=== PATIENT | male | born 1955 | race Caucasian/White ===

== ENCOUNTER 2019-10-07 14:07 | Inpatient (IN) | payer OTHER, SELFPAY ==
--- NOTE | ~2019-10-07 | US_ITS ---
EXAMINATION: US paracentesis abd w/image DATE: 10/08/2019 10:44 INDICATION: Ascites. TECHNIQUE: The procedure and its risks and benefits were discussed with the patient. Potential risks discussed included bleeding and infection. The skin was prepped and draped in sterile fashion. 1% lid ocaine was used for local anesthesia. Under ultrasound guidance, a 5 Fr catheter with trochar was adv anced into the ascites in the left lower quadrant. Fluid was aspirated into vacuum bottles. The bhumika ter was removed, and a dressing was applied. There were no immediate complications. FINDINGS: Ultrasound images demonstrate ascites and the catheter within the fluid. IMPRESSION: 1. Successful ultrasound-guided paracentesis yielding 5000 mL of clear tabatha-colored fluid. Reviewed, dictated and finalized at location A. FICIAL FLY TIER IMPRESSION: 1. Successful ultrasound-guided paracentesis yielding 5000 mL of clear tabatha-c olored fluid.
--- NOTE | ~2019-10-07 | US_ITS ---
EXAMINATION: US venous doppler [facility] DATE: 10/08/2019 10:43 INDICATION: Bilateral lower limb swelling TECHNIQUE: Grayscale ultrasound images without and with compression and Doppler ultrasound images of the bilateral lower extremity veins were obtained. COMPARISON: None. FINDINGS: The visualized portions of right common femoral vein, profunda (deep) femoral vein, femoral vein, pop liteal vein, posterior tibial veins, peroneal veins, gastrocnemius vein and greater saphenous vein ou tflow are patent. The visualized portions of left common femoral vein, profunda femoral vein, femoral vein, popliteal v ein, posterior tibial veins, peroneal veins, gastrocnemius vein and greater saphenous vein outflow ar e patent. IMPRESSION: 1. No deep venous thrombosis in either lower limb. Reviewed, dictated and finalized at location A. O CASHIER
--- NOTE | ~2019-10-07 | US_ITS ---
EXAMINATION: US paracentesis abd w/image DATE: 10/11/2019 12:23 INDICATION: Ascites. TECHNIQUE: The procedure and its risks and benefits were discussed with the patient. Potential risks discussed included bleeding and infection. The skin was prepped and draped in sterile fashion. 1% lid ocaine was used for local anesthesia. Under ultrasound guidance, a 5 Fr catheter with trochar was adv anced into the ascites in the left lower quadrant. Fluid was aspirated into vacuum bottles. The bhumika ter was removed, and a dressing was applied. There were no immediate complications. FINDINGS: Ultrasound images demonstrate ascites and the catheter within the fluid. IMPRESSION: 1. Successful ultrasound-guided paracentesis yielding 5000 mL of clear yellow fluid. Reviewed, dictated and finalized at location A. F OF POLICE
--- NOTE | ~2019-10-07 | XR_ITS ---
EXAMINATION: XR chest 2V EXAM DATE: 10/07/2019 16:41 INDICATION: Cough. Low chest pain. TECHNIQUE: Frontal and lateral projections of the chest obtained and reviewed. Comparison is made to prior examination from 02/23/2012. FINDINGS: There is low lung volume with bibasilar opacities, at least partly atelectasis given linea r appearance and volume loss. Can't exclude basilar pneumonia. There is no pneumothorax suspected. Th ere are no pleural effusions. Cardiomediastinal silhouette is normal. Patient has diffuse idiopathic skeletal hyperostosis (DISH). IMPRESSION: Multifocal bibasilar linear opacities most likely atelectasis. Pneumonia not excludable. Reviewed, dictated and finalized at location B. S OPERATOR AUTOMATIC IMPRESSION: Multifocal bibasilar linear opacities most likely atelectasis. Pneu monia not excludable.
--- NOTE | ~2019-10-07 | CT_ITS ---
EXAMINATION: CT abdomen pelvis w con DATE: 10/07/2019 16:32 INDICATION: Abdominal distention. TECHNIQUE: Computed tomography (CT) of the abdomen and pelvis was performed with 100 mL Omnipaque-350 intravenous contrast. Automated exposure control and iterative reconstruction technique were employe d. The dose-length product was 810.47 mGy-cm. COMPARISON: None FINDINGS: Large amount of ascites resulting in elevation of the diaphragm and bibasilar compressive atelectasis . Heart size is normal. No pericardial effusion. Shrunken and nodular cirrhotic liver. Portal venous hypertension with recanalized umbilical vein. Wall thickening at the distal esophagus which may be re lated to progressive gastroesophageal varices. Edematous wall thickening of the nondistended gallblad harjit most likely related to liver disease. A few calcification of the normal sized spleen consistent w ith old granulomatous disease. Pancreas, bilateral adrenal glands and left kidney are normal. 2.3 cm right renal cyst. Bowels including the appendix are normal. Small amount of ascites extends into a ri ght inguinal hernia. Decompressed bladder is normal. No pathologically enlarged abdominal or pelvic l ymphadenopathy. There are bridging osteophytes at multiple levels in the spine, consistent with diffu se idiopathic skeletal hyperostosis (DISH). L1 hemangioma. IMPRESSION: 1. Cirrhosis with portal venous hypertension and large amount of ascites. 2. Wall thickening the distal esophagus most likely related to gastroesophageal varices with differen tial including esophagitis. 3. Right inguinal hernia containing small amount of fat and ascites. Reviewed, dictated and finalized at location A. AGENT IMPRESSION: 1. Cirrhosis with portal venous hypertension and large amount of ascites. 2. Wall thickening the distal esophagus most likely related to gastroesophageal varices with differential including esophagitis. 3. Right inguinal hernia containing small amount of fat and ascites.
[2019-10-07 14:26] VITALS: BP 129/94; PULSE 98; RESP 16; TEMP 37.2; O2SAT 100
[2019-10-07 14:40] LABS: Basophils Percent Auto 0.4 % (0.2-1.2); Eosinophils Absolute Auto 0.1 K/mm3 (0-0.3); Eosinophils Percent Auto 1.4 % (0-4.4); Hematocrit 37.6 % (42.0-52.0); Hemoglobin 12.6 g/dL (14.0-18.0); Immature Granulocyte Absolute 0.02 K/mm3 (0.00-0.031); Immature Granulocyte Percent A 0.3 % (0-0.5); Lymphocytes Absolute Auto 1.43 K/mm3 (0.9-3.2); Lymphocytes Percent Auto 20.5 % (18.3-44.2); Mean Corpuscular HGB Conc 33.5 g/dl (32-36); Mean Corpuscular Hemoglobin 35.4 pg (26-34); Mean Corpuscular Volume 105.6 fl (80-100); Mean Platelet Volume 12.8 fl (7.4-10.4); Monocytes Absolute Auto 1.3 K/mm3 (0.1-0.6); Monocytes Percent Auto 19.2 % (2.6-8.5); Neutrophils Absolute Auto 4.1 K/mm3 (1.3-6.7); Neutrophils Percent Auto 58.2 % (45.5-73.1); Platelet Count Result 105 k/mm3 (150-375); Red Blood Count 3.56 M/mm3 (4.6-6.20); Red Cell Distribution Width 13.1 % (11.5-14.5)
[2019-10-07 14:53] LABS: Alanine Aminotransferase 20 U/L (4-50); Albumin Level 2.7 g/dL (3.5-5.1); Alkaline Phosphatase 125 U/L (38-126); Aspartate Amino Transferase 38 U/L (17-59); Bilirubin,Total 2.2 mg/dL (0.2-1.3); Blood Urea Nitrogen 9 mg/dL (9-20); Calcium 8.4 mg/dL (8.4-10.2); Carbon Dioxide 23 mmol/L (22-30); Chloride 101 mmol/L (98-107); Estimated CRCL calculation 104 ml/min; Estimated Glomerular Filt Rate > 60; Glucose 119 mg/dL (75-110); Lipase 180 U/L (23-300); Potassium 4.4 mmol/L (3.4-5.0); Sodium 135 mmol/L (137-145)
--- NOTE | 2019-10-07 16:08 | ED.GENADULT ---
HPI - General Adult General Chief complaint: Unspecified Stated complaint: 50lb wt gain all at once Time Seen by Provider: 10/07/19 16:04 Source: patient and RN notes reviewed Mode of arrival: ambulatory Limitations: no limitations History of Present Illness HPI narrative: Pt is a 64 y/o male presenting to the ED c/o weight gain. Pt reports he has gained about 40 lbs of weight over the past 2 months. Pt states this is his first occurrence with this issue, and denies Hx's of heart disease or liver disease. Pt also reports SOB, pruritic BLE swelling, ABD distention, productive cough with phlegm, and pain with cough, but denies nausea. Pt states he has no Hx of alcoholism. Onset (ago): month(s) (2) Associated symptoms: cough (Productive with phlegm), shortness of breath and other (Pruritic BLE swelling; ABD distention; pain with cough) Treatments prior to arrival: none Related Data Allergies Allergy/AdvReac Type Severity Reaction Status Date / Time No Known Allergies Allergy Mild Verified 02/28/08 16:55 Review of Systems Review of Systems: All systems reviewed & are unremarkable except as noted in HPI and below Constitutional: Constitutional: Reports weight gain (40 lbs over past 2 months) Respiratory: Respiratory: Reports cough (Productive with phlegm), Reports pain with cough and Reports dyspnea Gastrointestinal: Gastrointestinal: Denies nausea and Reports other (ABD distention) Integumentary/Breasts: Skin/Breast: Reports swelling (Pruritic BLE) PMFSH Past Medical History Medical History Asthma Esophageal hernia Surgical History Surgical History No significant past surgical history Social History Social History Smoking status: Smoker, status unknown Exam Const: General: no acute distress, alert and ill appearing (Chronically) Nutritional Appearance: well nourished HENMT: Mouth: Yes lip normal Eyes: Conjunctivae: conjunctivae normal Resp: Effort & Inspection: normal respiratory effort Auscultation: clear to auscultation bilaterally Cardio: Rate: regular rate Rhythm: regular rhythm GI: Inspection: distended and other (Diffuse edema through abdominal wall) GI Palp: Yes Soft to palpation and No Tenderness to palpation present (GI) Back/Spine/Pelvis: Other: Full ROM Skin: General skin exam: normal color Other: Warm; Dry Neuro: General: patient oriented x3 Speech: normal speech Extrem: General: edema (Diffuse) Psych: Mental Status: mental status grossly normal Affect: normal affect Course Vital Signs Vital signs: Vital Signs Temperature 37.2 C 10/07/19 14:26 Pulse Rate 98 10/07/19 14:26 Respiratory Rate 16 10/07/19 14:26 Blood Pressure 129/94 H 10/07/19 14:26 Pulse Oximetry 100 10/07/19 14:26 Temperature 36.9 C 10/07/19 17:18 Pulse Rate 85 10/07/19 17:18 Respiratory Rate 16 10/07/19 17:18 Blood Pressure 123/58 L 10/07/19 17:18 Pulse Oximetry 97 10/07/19 17:18 Medical Decision Making MDM Narrative Medical decision making narrative: CT consitent with cirrhosis. I will plan to admit for diuresis and GI consult. Differential Diagnosis Differential Diagnosis: Cirrhosis, cancer, CHF, other Medical Records Medical records reviewed: Yes I reviewed the patient's medical records. Vital Signs Vital Signs: Vital Signs Temperature 37.2 C 10/07/19 14:26 Pulse Rate 98 10/07/19 14:26 Respiratory Rate 16 10/07/19 14:26 Blood Pressure 129/94 H 10/07/19 14:26 Pulse Oximetry 100 10/07/19 14:26 Temperature 36.9 C 10/07/19 17:18 Pulse Rate 85 10/07/19 17:18 Respiratory Rate 16 10/07/19 17:18 Blood Pressure 123/58 L 10/07/19 17:18 Pulse Oximetry 97 10/07/19 17:18 Lab Data Lab results reviewed: Yes I reviewed the patient's lab results. Result diagrams: 10/07/19 14:31 10/07/19 14:31
[2019-10-07 16:37] LABS: INR 1.8; Prothrombin Time 20.4 Seconds (11.1-14.7)
[2019-10-07 16:38] LABS: Partial Thromboplastin Time 38.3 SECONDS (22.3-36.8)
[2019-10-07 16:42] LABS: NT Pro B Type Natriuretic Pept 254 PG/ML (5-100)
[2019-10-07 17:18] VITALS: BP 123/58; PULSE 85; RESP 16; TEMP 36.9; O2SAT 97
[2019-10-07] MEDS: FUROSEMIDE INJ 40 MG/4 ML VIAL IV PUSH (17:36)
[2019-10-07 18:27] LABS: Add Urine Microscopic? NO; Appearance Urine Clear (Clear); Bilirubin Urine Negative (Negative); Blood Urine Negative (Negative); Color Urine Yellow (Yellow); Glucose Urine UA Negative (Negative); Ketones Urine Negative (Negative); Leukocyte Esterase Ur Negative LEU/UL (Negative); Nitrate Urine Negative (Negative); Protein Urine Negative (Negative); RBC Urine 0-2 /hpf (0-2); Urobilinogen Urine Negative mg/dL (<2.0); WBC Urine 0-3 /hpf
[2019-10-07 18:28] LABS: Specific Grav Ur 1.065 (1.001-1.035)
[2019-10-07 18:42] VITALS: BP 136/71; PULSE 89; RESP 18; TEMP 36.6; O2SAT 98
[2019-10-07 20:35] VITALS: BP 123/90; PULSE 101; RESP 18; TEMP 36.7; O2SAT 100
[2019-10-07 20:37] VITALS: BMI 28.3
--- NOTE | 2019-10-07 21:08 | ADMGEN ---
This patient, Bo Freedman, was admitted to Medical Room 343-01. Patient/family oriented to hospital policies and general routines including ID bracelet, bed and alarms, visiting hours, pain management, procedures, bathroom and other care routines, personal items, smoking policy, room service/diet, and visiting hours. Valuables list has been completed. Information on how to activate the Rapid Response Team has been discussed. Patient/Family are encouraged to report perceived risks to care and to ask questions if they do not understand what they are told or what they should do.
--- NOTE | 2019-10-08 | ECHO_ITS ---
Patient Info Name: Bo Freedman Age: 64 years : 1955 Gender: Male Ht: 68 in Wt: 186 lbs BSA: 2.03 m2 HR: 86 bpm BP: 123 / 90 mmHg Heart Rhythm: Sinus Rhythm Technical Quality: Good Exam Date: 10/08/2019 7:20 AM Exam Location: [facility] Pulmonary Exam Room: 343 Patient Status: Inpatient Admit Date: 10/07/2019 Staff Ordering Physician: Tori Lilly NP Cell Stripper Final: Maria M Gordon RDCS Attending Provider: Jaydon Jenkins PA-C Exam Type: CA echo doppler color flow Study Info Indications - murmur Complete two-dimensional, color flow and Doppler transthoracic echocardiogram is performed. Summary 1. Left ventricular systolic function is hyperdynamic, estimated at >70%. 2. There is moderate asymmetric septal increased left ventricular wall thickness. 3. The mitral valve has normal leaflets. 4. chordal systolic anterior motion is seen with modest 16mm LVOT gradient. 5. Findings as above are consistent with HCM with mild LVOT gradient. Left Ventricle Left ventricular chamber dimension is normal. Left ventricular systolic function is hyperdynamic, estimated at >70%. There is moderate asymmetric septal increased left ventricular wall thickness. The left ventricular diastolic function is grade I diastolic dysfunction. Right Ventricle Right ventricular chamber dimension is normal. Left Atria Left atrial chamber dimension is mildly enlarged. Right Atria Right atrial chamber dimension is normal. Aortic Valve The aortic valve is trileaflet. Pulmonic Valve The pulmonic valve is not well visualized. Mitral Valve The mitral valve has normal leaflets. There is no mitral valve regurgitation. chordal systolic anterior motion is seen with modest 16mm LVOT gradient. Tricuspid Valve The tricuspid valve leaflets are normal. Pericardium/Pleural The pericardium appears normal. Aorta The aortic root size at the sinus of Valsalva is normal. Left Ventricular Outflow Tract Name Value Normal LVOT 2D LVOT Diameter 2.0 cm LVOT Doppler LVOT Peak Gradient 9 mmHg LVOT Mean Gradient 8 mmHg LVOT VTI 29 cm LVOT VTI/AV VTI Ratio 0.7 LVOT Stroke Volume 88 ml LVOT CO 24.8 l/min LVOT CI 12.2 l/min/m2 Pulmonic Valve Name Value Normal PV Doppler PV Peak Gradient 4 mmHg Mitral Valve Name Value Normal MV Doppler MV Decel Wheeler 366 cm/s2
--- NOTE | 2019-10-08 00:37 | PM.IMHP ---
H&P: HPI History of Present Illness Chief complaint: cirrhosis/anasarca Narrative: Bo Freedman is a 64 year old male stated that he is not a drinker he really drinks. The patient denies being jaundiced. The patient stated he gained about 40 lb over the last 2 months. Patient stated his stomach became distended but did not get any bigger after that. He said it made him more short of breath. He would walk to the mailbox and back and would be very short of breath. The patient does not take any home medications. Patient stated that he started to swell in his chest removed and his abdomen is lower extremities. He has no history of any PEs or DVTs. Patient stated he has never had these symptoms before. IV Lasix in the emergency room. The patient stated that he is feeling somewhat better. Patient is jaundiced. He had a CT scan that was read as Cirrhosis with portal venous hypertension with large amount of ascites. Wall thickening of the distal esophagus most likely related to gastroesophageal varices with different job than esophagitis. Right inguinal hernia containing small amount of fat ascites. Date of service is 10/07/2019. Review of Systems Review of Systems: Narrative: Patient is jaundiced. Short of breath with exertion All systems reviewed & are unremarkable except as noted in HPI and below Constitutional: Constitutional: Reports as per HPI, Reports no additional constitutional complaints, Reports fatigue and Reports poor appetite Eyes: Eyes: Reports as per HPI and Reports no additional eye complaints ENT: Reports system reviewed and no additional complaints, except as documented and Reports Normal hearing present Cardiovascular: Cardiovascular: Reports no additional cardiovascular complaints Respiratory: Respiratory: Reports no additional respiratory complaints and Reports no additional respiratory complaints Gastrointestinal: Gastrointestinal: Reports as per HPI, Reports no additional gastrointestinal complaints, Reports belching, Reports bloating, Reports dyspepsia, Reports heartburn and Reports vomiting Genitourinary: Comments: Decreased urinary output Musculoskeletal: Musculoskeletal: Reports no additional musculoskeletal complaints Integumentary/Breasts: Skin/Breast: Reports system reviewed and no additional complaints, except as docu and Reports as per HPI Neurologic: Reports system reviewed and no additional complaints, except as documented, Reports as per HPI and Reports Normal hearing present Psychiatric: Psychiatric: Reports no additional psychiatric complaints and Reports as per HPI Endocrine: Endocrine: Reports no additional endocrine complaints Hematologic/Lymphatic: Hematologic/Lymphatic: Reports no additional hematologic/lymphatic complaints Allergic/Immunologic: Allergic/Immunologic: Reports no additional allergic/immunologic complaints PMFSH Past Medical History Medical History (Updated 10/08/19 @ 00:49 by Tori Lilly NP) Anasarca Ascites Asthma Cirrhosis Esophageal hernia Esophageal varices Portal venous hypertension Surgical History Surgical History No significant past surgical history Family History Family History (Updated 10/08/19 @ 00:49 by Tori Lilly NP) Unknown Family history unknown Social History Social History (Updated 10/08/19 @ 00:56 by Tori Lilly NP) Social History: Patient is . He has 1 adopted child. 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 His 1 adopted daughter is the power production support specialist her name is Shayy. Patient stated he smoked about half pack a cigarettes a day from the age of [age]. He smokes cigars for short period time. Patient denies any alcohol use. He said he used to drink a couple beers during the summertime once a week. Smoking packs per day: 1 Smoking cigarettes per day: 20.0 Years smoked: 37 Smoking pack-years: 37.00 Smoking status: Former smoke
[2019-10-08 01:11] LABS: Albumin Level 2.4 g/dL (3.5-5.1)
[2019-10-08 05:25] VITALS: BP 119/83; PULSE 88; RESP 18; TEMP 36.5; O2SAT 98
[2019-10-08 05:46] LABS: Add Urine Microscopic? YES; Appearance Urine Clear (Clear); Bacteria Urine Trace /hpf; Bilirubin Urine Negative (Negative); Blood Urine Negative (Negative); Color Urine Amber (Yellow); Glucose Urine UA Negative (Negative); Ketones Urine Negative (Negative); Leukocyte Esterase Ur Negative LEU/UL (NEGATIVE); Mucus Urine Rare /lpf; Nitrate Urine Negative (Negative); Protein Urine 1+ mg/dL (Negative); RBC Urine 0-2 /hpf (0-2); WBC Urine 0-3 /hpf (0-3)
[2019-10-08 06:05] LABS: Specific Grav Ur 1.054 (1.001-1.035)
[2019-10-08 08:52] LABS: Basophils Percent Auto 0.4 % (0.2-1.2); Eosinophils Absolute Auto 0.1 K/mm3 (0-0.3); Eosinophils Percent Auto 1.4 % (0-4.4); Hematocrit 37.8 % (42.0-52.0); Immature Granulocyte Absolute 0.03 K/mm3 (0.00-0.031); Immature Granulocyte Percent A 0.4 % (0-0.5); Lymphocytes Absolute Auto 1.75 K/mm3 (0.9-3.2); Lymphocytes Percent Auto 22.8 % (18.3-44.2); Mean Corpuscular HGB Conc 34.4 g/dl (32-36); Mean Corpuscular Hemoglobin 35.9 pg (26-34); Mean Corpuscular Volume 104.4 fl (80-100); Monocytes Absolute Auto 1.5 K/mm3 (0.1-0.6); Monocytes Percent Auto 19.1 % (2.6-8.5); Neutrophils Absolute Auto 4.3 K/mm3 (1.3-6.7); Neutrophils Percent Auto 55.9 % (45.5-73.1); Platelet Count Result 107 k/mm3 (150-375); Red Blood Count 3.62 M/mm3 (4.6-6.20); White Blood Count 7.7 K/mm3 (4.5-10.0)
[2019-10-08 09:17] LABS: Albumin Level 2.8 g/dL (3.5-5.1); Alkaline Phosphatase 120 U/L (38-126); Aspartate Amino Transferase 40 U/L (17-59); Bilirubin,Total 3.3 mg/dL (0.2-1.3); Blood Urea Nitrogen 9 mg/dL (9-20); Calcium 8.3 mg/dL (8.4-10.2); Carbon Dioxide 23 mmol/L (22-30); Chloride 98 mmol/L (98-107); Estimated CRCL calculation 104 ml/min; Estimated Glomerular Filt Rate > 60; Glucose 89 mg/dL (75-110); Magnesium 1.9 mg/dL (1.6-2.3); Potassium 3.3 mmol/L (3.4-5.0); Sodium 136 mmol/L (137-145)
[2019-10-08 09:50] LABS: Alanine Aminotransferase 27 U/L (4-50)
[2019-10-08 09:52] LABS: Hepatitis B Surface Antigen Negative (Negative)
[2019-10-08 09:58] LABS: HAV RESULT Negative (Negative); Hepatitis B Core IgM Result Negative (Negative)
[2019-10-08 10:09] LABS: Hepatitis C Virus Antibody Negative (Negative)
[2019-10-08] MEDS: PANTOPRAZOLE SODIUM IV 40 MG VIAL IV PUSH ×2 (10:21→21:33)
[2019-10-08] MEDS: FUROSEMIDE INJ 40 MG/4 ML VIAL IV PUSH (10:21)
[2019-10-08 12:19] LABS: Appearance Peritoneal Fluid Clear (Clear); Color Peritoneal Fluid Yellow (Colorless); Nucleated Cells Peritoneal Flu 147 /uL (0-500); RBC Peritoneal Fluid 115 /uL (0-100000); Source Peritoneal Fluid Peritoneal Fluid
[2019-10-08 12:27] LABS: Lymphocytes Peritoneal Fluid 46 %; Monocytes Peritoneal Fluid 4 %; Neutrophils Peritoneal Fluid 2 % (0-25)
[2019-10-08 12:28] LABS: Mesothelial Cells Peritoneal Fluid 48 %
--- NOTE | 2019-10-08 12:58 | PM.IMPN ---
Progress Note: A&P Assessment and Plan (1) Cirrhosis: Qualifiers: Ascites presence: with ascites Hepatic cirrhosis type: unspecified hepatic cirrhosis Qualified Code(s): K74.60 - Unspecified cirrhosis of liver; R18.8 - Other ascites Code(s): K74.60 - Unspecified cirrhosis of liver Status: Chronic Assessment and Plan: CT findings suggestive of cirrhosis with possible esophageal varices. Patient stated that he drinks 1-2 drinks/day for unclear time frame. Hepatitis panel negative. Unclear etiology at this moment; possible alcohol induced vs idiopathic. Dr. Charlie GARCIA consulted and appreciate recommendations IV protonix Q12 for esophageal varices Further recommendations from GI (2) Anasarca: Code(s): R60.1 - Generalized edema Status: Chronic Assessment and Plan: Edema up to level of hip at least. Paracentesis chris 5L of fluid. Likely secondary to cirrhosis Will d/c IV lasix/diuresis given findings of Hypertrophic cardiomyopathy Patient placed on low sodium diet Instructions to elevate legs (3) Ascites: Code(s): R18.8 - Other ascites Status: Chronic Assessment and Plan: Paracentesis today chris 5 L clear tabatha fluid; microbiology pending. Further recommendations per GI (4) Esophageal varices: Code(s): I85.00 - Esophageal varices without bleeding Status: Chronic Assessment and Plan: Likely secondary to cirrhosis. Continue IV Protonix Further recommendations per GI (5) Portal venous hypertension: Code(s): K76.6 - Portal hypertension Status: Chronic Assessment and Plan: Suggestive on CT scan yesterday. Likely secondary to cirrhosis Further recommendations per GI (6) Inguinal hernia: Code(s): K40.90 - Unilateral inguinal hernia, without obstruction or gangrene, not specified as recurrent Status: Acute Assessment and Plan: No acute issues Continue to monitor. (7) Esophagitis: Code(s): K20.9 - Esophagitis, unspecified Status: Acute Assessment and Plan: Possible esophagitis found on CT. IV Protonix. (8) Hypertrophic cardiomyopathy: Code(s): I42.2 - Other hypertrophic cardiomyopathy Status: Acute Assessment and Plan: Found on Echo today. Discussed with patient in detail. Will hold on IV lasix/diuretics for now given these results Place patient on low sodium diet elevate legs to attempt to remove some fluid Time Spent With Patient Time with patient: 15 - 25 minutes Subjective Date/time seen: 10/08/19 12:58 Interval history: Patient is a 64 yo M with history of asthma and esophageal hernia who is here for evaluation for CT findings consistent for cirrhosis of the liver with possible esophageal varices and anasarca. Patient is A&Ox4, but is not a good historian and it is difficult to elicit history as he does not provide a lot of detail. Patient states he drinks 1-2 drinks here and there . At most he tells me he drank 12 pack per week; he is vague on length of drinking. His abd distension has improved since his paracentesis today. He states his legs are still swollen pretty significantly. His cough has subsided. He states his back itches today. He does not tell much more information. Upon further questioning, he denies f/c/ns, headaches, dizziness, lightheadedness, changes in v/h, cp/palpitations, sob/cough, n/v/d/c, dysphagia, melena, brbpr, dysuria, hematuria, cloudy urine, s/sx of stroke. Review of Systems Review of Systems: All systems reviewed & are unremarkable except as noted in HPI and below Exam Narrative: Exam Narrative: Patient is l
[2019-10-08] MEDS: POTASSIUM CHLORIDE 20 MEQ TABLET 40 MEQ PO (12:59)
--- NOTE | 2019-10-08 13:06 | WPDGICN ---
Assessment and Plan Assessment and plan (1) Cirrhosis: Qualifiers: Ascites presence: with ascites Hepatic cirrhosis type: unspecified hepatic cirrhosis Qualified Code(s): K74.60 - Unspecified cirrhosis of liver; R18.8 - Other ascites Code(s): K74.60 - Unspecified cirrhosis of liver Status: Chronic Assessment and Plan: new diagnosis. Patient denies risk factors (no illicits, no etoh abuse), no h/o DM and hepatitis panel negative. Will get blood work to rule out other chronic liver conditions, then he will need follow up in my office with liver ultrasound surveillance, monitoring liver/renal function (meld score), etc. His MEDL score now is 18 (2) Anasarca: Code(s): R60.1 - Generalized edema Status: Chronic Assessment and Plan: no evidence of SBP. Will need 2g na diet and biomedical technician education. Cardiology is recommendation hold on diuretics for now given also new diagnosis of HCM. (3) Ascites: Qualifiers: Ascites type: other type Qualified Code(s): R18.8 - Other ascites Code(s): R18.8 - Other ascites Status: Chronic (4) Portal venous hypertension: Code(s): K76.6 - Portal hypertension Status: Chronic Assessment and Plan: patient will need EGD to assess if esophageal varices, no signs of bleeding but abnormal CT scan. (5) Hypertrophic obstructive cardiomyopathy (HOCM): Code(s): I42.1 - Obstructive hypertrophic cardiomyopathy Status: Acute GI Consult Note Consult date/time: 10/08/19 13:06 reason for consult: new diagnosis of cirrhosis, ascites HPI: Bo Freedman is a 64 year old male here with worsening edema of legs and also increase abdominal girth, noted also shortness of breath on exertion. He has not seen a doctor in over 7 years, denies family history of liver disease and does not take any medications. He came to ED, blood work consistent with cirrhosis (low platelets and albumin), CT scan showed Cirrhosis with portal venous hypertension with large amount of ascites. Wall thickening of the distal esophagus most likely related to gastroesophageal varices, denies any melena or vomiting. He had paracentesis, no evidence of SBP. He also has a loud heart murmur and 2d echo showed HCM. He also received IV lasix in ER. Review of Systems Constitutional: Constitutional: Denies headache(s) and Denies weakness Eyes: Eyes: Denies blurry vision ENT: Reports Normal hearing present, Denies headache(s) and Denies neck pain Cardiovascular: Cardiovascular: Denies chest pain Respiratory: Respiratory: Reports dyspnea on exertion Gastrointestinal: Gastrointestinal: Reports no additional gastrointestinal complaints Genitourinary: Genitourinary: Denies dysuria Musculoskeletal: Musculoskeletal: Denies neck pain Integumentary/Breasts: Skin/Breast: Denies dry skin Neurologic: Reports Normal hearing present, Denies headache(s) and Denies weakness Psychiatric: Psychiatric: Denies anxiety Endocrine: Endocrine: Denies change in body appearance Hematologic/Lymphatic: Hematologic/Lymphatic: Denies easy bleeding Allergic/Immunologic: Allergic/Immunologic: Denies urticaria PMFSH Past Medical History Medical History (Updated 10/08/19 @ 13:17 by Juarez Bush MD) Anasarca Ascites Asthma Cirrhosis Esophageal hernia Esophageal varices Hypertrophic obstructive cardiomyopathy (HOCM) Portal venous hypertension Surgical History Surgical History No significant past surgical history Social History Social History (Updated 10/08/19 @ 00:56 by Tori Lilly NP) Social History: Patient is . He has 1 adopted child. 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 His 1 adopted daughter is the power managing attorney her name is Shayy. Patient stated he smoked about half pack a cigarettes a day from the age of [age]. He smokes cigars for short period radha
[2019-10-08 14:00] VITALS: BP 95/58; PULSE 91; RESP 22; TEMP 36.6; O2SAT 99
[2019-10-08 21:27] VITALS: BP 100/65; PULSE 76; RESP 22; TEMP 36.4; O2SAT 99
[2019-10-09 05:57] VITALS: BP 121/76; PULSE 78; RESP 16; TEMP 37; O2SAT 96
[2019-10-09 06:50] LABS: Basophils Percent Auto 0.3 % (0.2-1.2); Eosinophils Absolute Auto 0.1 K/mm3 (0-0.3); Eosinophils Percent Auto 1.9 % (0-4.4); Hematocrit 33.5 % (42.0-52.0); Hemoglobin 11.3 g/dL (14.0-18.0); Immature Granulocyte Absolute 0.02 K/mm3 (0.00-0.031); Immature Granulocyte Percent A 0.3 % (0-0.5); Immature Platelet Fraction Pct 6.6 % (0.9-11.2); Lymphocytes Absolute Auto 1.12 K/mm3 (0.9-3.2); Lymphocytes Percent Auto 19.2 % (18.3-44.2); Mean Corpuscular HGB Conc 33.7 g/dl (32-36); Mean Corpuscular Hemoglobin 35.3 pg (26-34); Mean Corpuscular Volume 104.7 fl (80-100); Mean Platelet Volume 11.6 fl (7.4-10.4); Monocytes Absolute Auto 1.1 K/mm3 (0.1-0.6); Monocytes Percent Auto 19.1 % (2.6-8.5); Neutrophils Absolute Auto 3.4 K/mm3 (1.3-6.7); Neutrophils Percent Auto 59.2 % (45.5-73.1); Platelet Count Result 74 k/mm3 (150-375); Red Cell Distribution Width 12.9 % (11.5-14.5); White Blood Count 5.8 K/mm3 (4.5-10.0)
[2019-10-09 06:57] LABS: Free T4 Free Thyroxine Reflex 1.32 ng/dL (0.78-2.19)
[2019-10-09 07:00] LABS: Ammonia 18 umol/L (9-30); Magnesium 1.8 mg/dL (1.6-2.3)
[2019-10-09 07:01] LABS: Alanine Aminotransferase 15 U/L (4-50); Albumin Level 2.1 g/dL (3.5-5.1); Alkaline Phosphatase 126 U/L (38-126); Aspartate Amino Transferase 29 U/L (17-59); Bilirubin,Total 1.3 mg/dL (0.2-1.3); Blood Urea Nitrogen 10 mg/dL (9-20); Calcium 7.9 mg/dL (8.4-10.2); Carbon Dioxide 25 mmol/L (22-30); Chloride 101 mmol/L (98-107); Estimated CRCL calculation 90 ml/min; Estimated Glomerular Filt Rate > 60; Glucose 93 mg/dL (75-110); Potassium 3.8 mmol/L (3.4-5.0); Sodium 136 mmol/L (137-145)
[2019-10-09 07:20] LABS: Iron 39 ug/dL (49-181)
[2019-10-09 07:29] LABS: Percent Iron Saturation 28 % (20-50)
[2019-10-09 08:06] LABS: Folic Acid 9.3 ng/mL (2.76->20)
[2019-10-09] MEDS: PANTOPRAZOLE SODIUM IV 40 MG VIAL IV PUSH ×2 (08:20→20:37)
[2019-10-09 08:30] LABS: Total Triiodothyronine (T3) 0.74 NG/ML (0.97-1.69)
[2019-10-09 08:55] LABS: Transferrin < 80 mg/dL (206-381)
--- NOTE | 2019-10-09 10:09 | WPDGIPROGNO ---
Progress Note: A&P Assessment and Plan (1) Cirrhosis: Qualifiers: Ascites presence: with ascites Hepatic cirrhosis type: unspecified hepatic cirrhosis Qualified Code(s): K74.60 - Unspecified cirrhosis of liver; R18.8 - Other ascites Code(s): K74.60 - Unspecified cirrhosis of liver Status: Chronic Assessment and Plan: work up in progress, continue with supportive care, 2g na diet and nutritional support will go EGD tomorrow to assess if esophageal varices, no signs of bleeding. (2) Ascites: Qualifiers: Ascites type: other type Qualified Code(s): R18.8 - Other ascites Code(s): R18.8 - Other ascites Status: Chronic Assessment and Plan: no SBP, holding diuretics for now until cardilogy evaluation (3) Anasarca: Code(s): R60.1 - Generalized edema Status: Chronic (4) Portal venous hypertension: Code(s): K76.6 - Portal hypertension Status: Chronic Assessment and Plan: EGD in the morning (5) Hypertrophic cardiomyopathy: Code(s): I42.2 - Other hypertrophic cardiomyopathy Status: Acute Subjective Date/time seen: 10/09/19 10:09 Interval history: no new events, comfortable. Review of Systems Constitutional: Constitutional: Denies headache(s) and Denies weakness Eyes: Eyes: Denies blurry vision ENT: Reports Normal hearing present, Denies headache(s) and Denies neck pain Cardiovascular: Cardiovascular: Denies chest pain Respiratory: Respiratory: Reports dyspnea on exertion Gastrointestinal: Gastrointestinal: Reports no additional gastrointestinal complaints Genitourinary: Genitourinary: Denies dysuria Musculoskeletal: Musculoskeletal: Denies neck pain Integumentary/Breasts: Skin/Breast: Denies dry skin Neurologic: Reports Normal hearing present, Denies headache(s) and Denies weakness Psychiatric: Psychiatric: Denies anxiety Endocrine: Endocrine: Denies change in body appearance Hematologic/Lymphatic: Hematologic/Lymphatic: Denies easy bleeding Allergic/Immunologic: Allergic/Immunologic: Denies urticaria Exam Const: General: comfortable and no acute distress HENMT: General nose exam: Normal nares present Eyes: General: appearance normal, both eyes and all related structures Neck: Neck: no JVD Resp: Auscultation: clear to auscultation bilaterally Cardio: Rate: regular rate Rhythm: regular rhythm Heart sounds: Murmur heart sound present GI: GI Palp: Yes Soft to palpation and No Tenderness to palpation present (GI) Percussion: Yes Fluid wave present Auscultation: normal bowel sounds Skin: General skin exam: normal color Neuro: General: gait normal Speech: normal speech Extrem: General: pedal edema Psych: Mental Status: mental status grossly normal Objective Data Vital Signs Vital Signs: Vital Signs - 24 hr 10/08/19 14:00 10/08/19 21:27 10/09/19 05:57 Temperature 97.8 F 97.6 F 98.6 F Pulse Rate 91 76 78 Respiratory Rate 22 H 22 H 16 Blood Pressure 95/58 L 100/65 121/76 Pulse Oximetry 99 99 96 Intake/Output Intake/Output: Intake & Output 10/06/19 10/07/19 10/08/19 10/09/19 23:59 23:59 23:59 23:59 Intake Total 1370 740 Output Total 6700 220 Balance -5330 520 Meds/Results Medications: Active Medications Generic Name Dose Route Start Last Admin Trade Name Freq PRN Reason Stop Dose Admin Lorazepam 1 mg 10/08/19 14:47 Ativan Inj IV PUSH Q4HR PRN alcohol withdrawal Pantoprazole Sodium 40 mg 10/08/19 09:00 10/09/19 08:20 Protonix Iv IV PUSH 40 mg Q12HR LINDA Administration Radiology Results: ITS Impressions Chest X-Ray 10/07/19 16:46 IMPRESSION: Multifocal bibasilar linear opacities most likely atelectasis. Pneumonia not excludable. Abdomen/Pelvis CT 10/07/19 16:48 IMPRESSION: 1. Cirrhosis with portal venous hypertension and large amount of ascites. 2. Wall thickening the distal esophagus most likely rel
--- NOTE | 2019-10-09 10:25 | PM.IMPN ---
Progress Note: A&P Assessment and Plan (1) Cirrhosis: Qualifiers: Ascites presence: with ascites Hepatic cirrhosis type: unspecified hepatic cirrhosis Qualified Code(s): K74.60 - Unspecified cirrhosis of liver; R18.8 - Other ascites Code(s): K74.60 - Unspecified cirrhosis of liver Status: Chronic Assessment and Plan: CT findings suggestive of cirrhosis with possible esophageal varices. Patient stated that he drinks 1-2 drinks/day for unclear time frame. Hepatitis panel negative. Unclear etiology at this moment; possible alcohol induced vs idiopathic vs other. Ammonia WNL today. Does not appear encephalopathic Dr. Guerra GI consulted and appreciate recommendations IV protonix Q12 for esophageal varices Further recommendations from GI Will give scheduled lactulose for constipation (2) Anasarca: Code(s): R60.1 - Generalized edema Status: Chronic Assessment and Plan: Edema up to level of hip at least. Paracentesis chris 5L of fluid yesterday. Likely secondary to cirrhosis Will d/c IV lasix/diuresis given findings of HCM Patient placed on low sodium diet Instructions to elevate legs (3) Ascites: Qualifiers: Ascites type: other type Qualified Code(s): R18.8 - Other ascites Code(s): R18.8 - Other ascites Status: Chronic Assessment and Plan: Paracentesis today chris 5 L clear tabatha fluid; microbiology pending. Further recommendations per GI (4) Esophageal varices: Code(s): I85.00 - Esophageal varices without bleeding Status: Chronic Assessment and Plan: Likely secondary to cirrhosis. Continue IV Protonix Further recommendations per GI EGD to be performed per Dr. Guerra tomorrow (5) Portal venous hypertension: Code(s): K76.6 - Portal hypertension Status: Chronic Assessment and Plan: Suggestive on CT scan yesterday. Likely secondary to cirrhosis Further recommendations per GI (6) Inguinal hernia: Code(s): K40.90 - Unilateral inguinal hernia, without obstruction or gangrene, not specified as recurrent Status: Acute Assessment and Plan: No acute issues Continue to monitor. (7) Esophagitis: Code(s): K20.9 - Esophagitis, unspecified Status: Acute Assessment and Plan: Possible esophagitis found on CT. IV Protonix. (8) Hypertrophic cardiomyopathy: Code(s): I42.2 - Other hypertrophic cardiomyopathy Status: Acute Assessment and Plan: Found on Echo yesterday. Discussed with patient in detail. Will hold on IV lasix/diuretics for now given these results Place patient on low sodium diet elevate legs to attempt to remove some fluid Subjective Date/time seen: 10/09/19 10:25 Interval history: Patient is a 64 yo M with history of asthma and esophageal hernia who is here for evaluation for CT findings consistent for cirrhosis of the liver with possible esophageal varices and anasarca. Patient is doing okay today. Still notes LE swelling. LE pain has improved. His distension of his abdomen is there, but better than yesterday since the paracentesis. He complains of constipation; he is passing flatus. No other complaints at this time. He denies f/c/ns, headaches, dizziness, lightheadedness, changes in v/h, cp/palpitations, sob/cough, n/v/d, dysphagia, melena, brbpr, dysuria, hematuria, cloudy urine, s/sx of stroke. Review of Systems Review of Systems: All systems reviewed & are unremarkable except as noted in HPI and below Exam Narrative: Exam Narrative: Patient is lying in semi-macias's position at time of exam Const: General: comfort
[2019-10-09] MEDS: LACTULOSE 20 GM/30 ML UDC PO (11:14)
--- NOTE | 2019-10-09 12:52 | PC.NURSE ---
Patient resistant to signing consent for EGD without consulting with Dr. Bush prior to procedure on October 10.
[2019-10-09 14:42] VITALS: BP 103/62; PULSE 72; RESP 16; TEMP 36.4; O2SAT 99
[2019-10-09 22:00] VITALS: BP 109/76; PULSE 85; RESP 16; TEMP 36.6; O2SAT 97
[2019-10-10] VITALS (10 sets, daily range): BP systolic 104–125; BP diastolic 66–87; PULSE 65–85; RESP 16–27; TEMP 36.8–37; O2SAT 95–98
[2019-10-10 05:38] LABS: Basophils Percent Auto 0.2 % (0.2-1.2); Eosinophils Absolute Auto 0.1 K/mm3 (0-0.3); Eosinophils Percent Auto 2.1 % (0-4.4); Hematocrit 34.4 % (42.0-52.0); Hemoglobin 11.7 g/dL (14.0-18.0); Immature Granulocyte Absolute 0.03 K/mm3 (0.00-0.031); Immature Granulocyte Percent A 0.5 % (0-0.5); Lymphocytes Absolute Auto 1.11 K/mm3 (0.9-3.2); Lymphocytes Percent Auto 16.9 % (18.3-44.2); Mean Corpuscular Hemoglobin 35.6 pg (26-34); Mean Corpuscular Volume 104.6 fl (80-100); Mean Platelet Volume 12.6 fl (7.4-10.4); Monocytes Percent Auto 15.3 % (2.6-8.5); Neutrophils Absolute Auto 4.3 K/mm3 (1.3-6.7); Platelet Count Result 82 k/mm3 (150-375); Red Blood Count 3.29 M/mm3 (4.6-6.20); White Blood Count 6.6 K/mm3 (4.5-10.0)
[2019-10-10 05:45] LABS: Alanine Aminotransferase 16 U/L (4-50); Albumin Level 2.2 g/dL (3.5-5.1); Alkaline Phosphatase 140 U/L (38-126); Aspartate Amino Transferase 32 U/L (17-59); Bilirubin,Total 1.1 mg/dL (0.2-1.3); Blood Urea Nitrogen 10 mg/dL (9-20); Calcium 7.8 mg/dL (8.4-10.2); Carbon Dioxide 24 mmol/L (22-30); Chloride 102 mmol/L (98-107); Estimated CRCL calculation 104 ml/min; Estimated Glomerular Filt Rate > 60; Glucose 99 mg/dL (75-110); Magnesium 1.7 mg/dL (1.6-2.3); Potassium 3.4 mmol/L (3.4-5.0); Sodium 137 mmol/L (137-145)
[2019-10-10] MEDS: PANTOPRAZOLE SODIUM IV 40 MG VIAL IV PUSH ×2 (08:21→22:48)
[2019-10-10] MEDS: LACTULOSE 20 GM/30 ML UDC PO (08:21)
--- NOTE | 2019-10-10 11:35 | P.PNIM_ITS ---
Progress Note: A&P Assessment and Plan (1) Cirrhosis: Qualifiers: Ascites presence: with ascites Hepatic cirrhosis type: unspecified hepatic cirrhosis Qualified Code(s): K74.60 - Unspecified cirrhosis of liver; R18.8 - Other ascites Code(s): K74.60 - Unspecified cirrhosis of liver Status: Chronic Assessment and Plan: CT findings suggestive of cirrhosis with possible esophageal varices. Patient stated that he drinks 1-2 drinks/day for unclear time frame. Hepatitis panel negative. Unclear etiology at this moment; possible alcohol induced vs idiopathic vs other. Ammonia WNL yesterday. Does not appear encephalopathic. Patient now reporting hematochezia, no melena. H&H stable. * Dr. Guerra GI consulted and appreciate recommendations * IV protonix Q12 for esophageal varices * Further recommendations from GI (2) Anasarca: Code(s): R60.1 - Generalized edema Status: Chronic Assessment and Plan: Edema up to level of hip at least, although lower legs have improved edema since elevating legs at level of heart. Paracentesis chris 5L of fluid earlier in stay. Likely secondary to cirrhosis. Patient tells me he may have another paracentesis tomorrow according to what was told to him. * No lasix/diuresis given findings of HCM * Patient placed on low sodium diet * Instructions to elevate legs (3) Ascites: Qualifiers: Ascites type: other type Qualified Code(s): R18.8 - Other ascites Code(s): R18.8 - Other ascites Status: Chronic Assessment and Plan: Paracentesis today chris 5 L clear tabatha fluid; microbiology negative to date * Further recommendations per GI (4) Esophageal varices: Code(s): I85.00 - Esophageal varices without bleeding Status: Chronic Assessment and Plan: Likely secondary to cirrhosis. * Continue IV Protonix * Further recommendations per GI * EGD to be performed per Dr. Guerra today (5) Portal venous hypertension: Code(s): K76.6 - Portal hypertension Status: Chronic Assessment and Plan: Suggestive on CT scan earlier in stay. Likely secondary to cirrhosis * Further recommendations per GI (6) Inguinal hernia: Code(s): K40.90 - Unilateral inguinal hernia, without obstruction or gangrene, not specified as recurrent Status: Acute Assessment and Plan: No acute issues * Continue to monitor. (7) Esophagitis: Code(s): K20.9 - Esophagitis, unspecified Status: Acute Assessment and Plan: Possible esophagitis found on CT. * IV Protonix. (8) Hypertrophic cardiomyopathy: Code(s): I42.2 - Other hypertrophic cardiomyopathy Status: Acute Assessment and Plan: Found on Echo earlier in stay. Discussed with patient in detail. * Will hold on IV lasix/diuretics for now given these results * Place patient on low sodium diet * elevate legs to attempt to remove some fluid * Discussed the importance of following up with his PCP once established and then getting referred to a Plastic [employer]ler for further management and follow up. * Consider Cardiology consult if status change Subjective Date/time seen: 10/10/19 11:35 Interval history: Patient is a 64 yo M with history of asthma and esophageal hernia wh
--- NOTE | 2019-10-10 11:35 | PM.IMPN ---
Progress Note: A&P Assessment and Plan (1) Cirrhosis: Qualifiers: Ascites presence: with ascites Hepatic cirrhosis type: unspecified hepatic cirrhosis Qualified Code(s): K74.60 - Unspecified cirrhosis of liver; R18.8 - Other ascites Code(s): K74.60 - Unspecified cirrhosis of liver Status: Chronic Assessment and Plan: CT findings suggestive of cirrhosis with possible esophageal varices. Patient stated that he drinks 1-2 drinks/day for unclear time frame. Hepatitis panel negative. Unclear etiology at this moment; possible alcohol induced vs idiopathic vs other. Ammonia WNL yesterday. Does not appear encephalopathic. Patient now reporting hematochezia, no melena. H&H stable. Dr. Guerra GI consulted and appreciate recommendations IV protonix Q12 for esophageal varices Further recommendations from GI (2) Anasarca: Code(s): R60.1 - Generalized edema Status: Chronic Assessment and Plan: Edema up to level of hip at least, although lower legs have improved edema since elevating legs at level of heart. Paracentesis chris 5L of fluid earlier in stay. Likely secondary to cirrhosis. Patient tells me he may have another paracentesis tomorrow according to what was told to him. No lasix/diuresis given findings of HCM Patient placed on low sodium diet Instructions to elevate legs (3) Ascites: Qualifiers: Ascites type: other type Qualified Code(s): R18.8 - Other ascites Code(s): R18.8 - Other ascites Status: Chronic Assessment and Plan: Paracentesis today chris 5 L clear tabatha fluid; microbiology negative to date Further recommendations per GI (4) Esophageal varices: Code(s): I85.00 - Esophageal varices without bleeding Status: Chronic Assessment and Plan: Likely secondary to cirrhosis. Continue IV Protonix Further recommendations per GI EGD to be performed per Dr. Guerra today (5) Portal venous hypertension: Code(s): K76.6 - Portal hypertension Status: Chronic Assessment and Plan: Suggestive on CT scan earlier in stay. Likely secondary to cirrhosis Further recommendations per GI (6) Inguinal hernia: Code(s): K40.90 - Unilateral inguinal hernia, without obstruction or gangrene, not specified as recurrent Status: Acute Assessment and Plan: No acute issues Continue to monitor. (7) Esophagitis: Code(s): K20.9 - Esophagitis, unspecified Status: Acute Assessment and Plan: Possible esophagitis found on CT. IV Protonix. (8) Hypertrophic cardiomyopathy: Code(s): I42.2 - Other hypertrophic cardiomyopathy Status: Acute Assessment and Plan: Found on Echo earlier in stay. Discussed with patient in detail. Will hold on IV lasix/diuretics for now given these results Place patient on low sodium diet elevate legs to attempt to remove some fluid Discussed the importance of following up with his PCP once established and then getting referred to a Com[employer] for further management and follow up. Consider Cardiology consult if status change Subjective Date/time seen: 10/10/19 11:35 Interval history: Patient is a 64 yo M with history of asthma and esophageal hernia who is here for evaluation for CT findings consistent for cirrhosis of the liver with possible esophageal varices and anasarca. Patient is doing okay today. His LE swelling has improved, but his abdominal distension has worsened. He also notes hematochezia with blood in toilet when having BMs; unable to quantify blood in toilet, but patient states it's not much . He has a slight dry cough today.
--- NOTE | 2019-10-10 11:52 | PC.NURSE ---
Patient to GI lab per geovanny. Report to LISBETH Longoria.
--- NOTE | 2019-10-10 12:09 | WPDANESEPPF ---
Anes - Initial Pre Proc Eval Procedure: Operation Date: 10/10/19 12:30 Proposed Procedures p Esophagogastroduodenoscopy - Juarez Bush MD Date/Time: 10/10/19 12:09 Surgeon: Jaydon Jenkins PA-C Pre Op Diagnosis: cirrhosis/anasarca Patient Data Age: 64 Gender: M Height: 5 ft 8 in Weight: 80.6 kg Last Vital Signs Temp 37.0 C 10/10/19 11:59 Pulse 82 10/10/19 11:59 Resp 16 10/10/19 11:59 BP 120/87 10/10/19 11:59 Pulse Ox 98 10/10/19 11:59 Allergies Allergy/AdvReac Type Severity Reaction Status Date / Time No Known Allergies Allergy Mild Verified 10/07/19 17:40 Home Medications Medication Instructions Recorded Confirmed Type No Home Medications 10/08/19 10/08/19 History Laboratory Tests 10/10/19 10/10/19 05:00 05:01 WBC 6.6 K/mm3 K/mm3 (4.5-10.0) RBC 3.29 M/mm3 L M/mm3 (4.6-6.20) Hgb 11.7 g/dL L g/dL (14.0-18.0) Hct 34.4 % L % (42.0-52.0) MCV 104.6 fl H fl (80-100) MCH 35.6 pg H pg (26-34) MCHC 34.0 g/dl g/dl (32-36) RDW 13.0 % % (11.5-14.5) Plt Count 82 k/mm3 L k/mm3 (150-375) MPV 12.6 fl H fl (7.4-10.4) Immature Gran % (Auto) 0.5 % % (0-0.5) Neut % (Auto) 65.0 % % (45.5-73.1) Lymph % (Auto) 16.9 % L % (18.3-44.2) [place] % (Auto) 15.3 % H % (2.6-8.5) Eos % (Auto) 2.1 % % (0-4.4) Baso % (Auto) 0.2 % % (0.2-1.2) Lymph # (Auto) 1.11 K/mm3 K/mm3 (0.9-3.2) [place] # (Auto) 1.0 K/mm3 H K/mm3 (0.1-0.6) Eos # (Auto) 0.1 K/mm3 K/mm3 (0-0.3) Baso # (Auto) 0.0 K/mm3 K/mm3 (0.0-0.1) Abs Immat Gran (auto) 0.03 K/mm3 K/mm3 (0.00-0.031) Absolute Neuts (auto) 4.3 K/mm3 K/mm3 (1.3-6.7) Absolute Nucleated RBC 0.0 K/mm3 K/mm3 (0.0-0.012) Nucleated RBC % 0.0 % % (0.0-0.2) Sodium 137 mmol/L mmol/L (137-145) Potassium 3.4 mmol/L mmol/L (3.4-5.0) Chloride 102 mmol/L mmol/L (98-107) Carbon Dioxide 24 mmol/L mmol/L (22-30) BUN 10 mg/dL mg/dL (9-20) Creatinine 0.60 mg/dL L mg/dL (0.7-1.3) Estim Creat Clear Calc 104 ml/min ml/min Estimated GFR > 60 (59 - ) Glucose 99 mg/dL mg/dL (75-110) Calcium 7.8 mg/dL L mg/dL (8.4-10.2) Magnesium 1.7 mg/dL mg/dL (1.6-2.3) Total Bilirubin 1.1 mg/dL mg/dL (0.2-1.3) AST 32 U/L U/L (17-59) ALT 16 U/L U/L (4-50) Alkaline Phosphatase 140 U/L H U/L (38-126) Total Protein 7.0 g/dL g/dL (6.3-8.2) Albumin 2.2 g/dL L g/dL (3.5-5.1) Patient hx anesthesia problems: none Family hx anesthesia problems: none [facility] Past Medical History Medical History Anasarca Ascites Asthma Cirrhosis Esophageal hernia Esophageal varices Hypertrophic obstructive cardiomyopathy (HOCM) Portal venous hypertension Surgical History Surgical History No significant past surgical history Family History Family History Unknown Family history unknown Social History Social History Social History: Patient is . He has 1 adopted child. 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 His 1 adopted daughter is the power workers compensation attorney her name is Shayy. Patient stated he smoked about half pack a cigarettes a day from the age of [age]. He smokes cigars for short period time. Patient denies any alcohol use. He said he used to drink a couple beers during the summertime once a week. Smoking packs per day: 1 Smoking cigarettes per day: 20.0 Years smoked: 37 Smoking pack-years: 37.00 Smoking status: Former smoker Tobacco type: cigarettes Smoking end date: 08/24/14 Alcohol intake: never [place]
[2019-10-10] MEDS: LACTATED RINGERS 1,000 ML 150 ML IV CONT (12:13)
[2019-10-10] MEDS: BENZOCAINE (*SP) 60 ML SPRAY CAN (HURRICAINE) 1 SPRAY MUCOUS MEM (12:41)
[2019-10-10] MEDS: ALBUTEROL SULFATE NEB 2.5 MG/0.5 ML INH INHALATION (14:36)
[2019-10-11] VITALS: BP 111/73; PULSE 81; RESP 16; TEMP 36.9; O2SAT 96
[2019-10-11 06:00] VITALS: BP 123/86; PULSE 93; RESP 16; TEMP 36.6; O2SAT 98
[2019-10-11 06:14] LABS: Alanine Aminotransferase 15 U/L (4-50); Albumin Level 2.1 g/dL (3.5-5.1); Alkaline Phosphatase 122 U/L (38-126); Aspartate Amino Transferase 28 U/L (17-59); Bilirubin,Total 1.1 mg/dL (0.2-1.3); Blood Urea Nitrogen 9 mg/dL (9-20); Calcium 7.7 mg/dL (8.4-10.2); Carbon Dioxide 25 mmol/L (22-30); Chloride 103 mmol/L (98-107); Estimated CRCL calculation 104 ml/min; Estimated Glomerular Filt Rate > 60; Glucose 100 mg/dL (75-110); Magnesium 1.8 mg/dL (1.6-2.3); Potassium 3.7 mmol/L (3.4-5.0); Sodium 135 mmol/L (137-145)
[2019-10-11 06:14] LABS: Basophils Percent Auto 0.5 % (0.2-1.2); Eosinophils Absolute Auto 0.2 K/mm3 (0-0.3); Eosinophils Percent Auto 2.5 % (0-4.4); Hematocrit 33.7 % (42.0-52.0); Hemoglobin 11.6 g/dL (14.0-18.0); Immature Granulocyte Absolute 0.02 K/mm3 (0.00-0.031); Immature Granulocyte Percent A 0.3 % (0-0.5); Immature Platelet Fraction Pct 7.2 % (0.9-11.2); Lymphocytes Absolute Auto 1.13 K/mm3 (0.9-3.2); Lymphocytes Percent Auto 17.9 % (18.3-44.2); Mean Corpuscular HGB Conc 34.4 g/dl (32-36); Mean Corpuscular Hemoglobin 35.8 pg (26-34); Mean Platelet Volume 12.4 fl (7.4-10.4); Monocytes Absolute Auto 1.1 K/mm3 (0.1-0.6); Neutrophils Absolute Auto 3.9 K/mm3 (1.3-6.7); Neutrophils Percent Auto 60.8 % (45.5-73.1); Platelet Count Result 71 k/mm3 (150-375); Red Blood Count 3.24 M/mm3 (4.6-6.20); White Blood Count 6.3 K/mm3 (4.5-10.0)
[2019-10-11 07:59] LABS: INR 1.8; Prothrombin Time 20.2 Seconds (11.1-14.7)
[2019-10-11 08:00] LABS: Partial Thromboplastin Time 37.6 SECONDS (22.3-36.8)
[2019-10-11] MEDS: PANTOPRAZOLE SODIUM IV 40 MG VIAL IV PUSH (08:14)
[2019-10-11 08:18] VITALS: BP 120/79; PULSE 84; RESP 16; TEMP 36.7; O2SAT 97
--- NOTE | 2019-10-11 09:51 | WPDANESPN ---
Anes - Prog Note Post-Op Date/Time: 10/11/19 09:51 Cardiovascular status: normal Respiratory status: normal Airway patency: baseline Mental status: baseline Post-Op hydration status: normal Vital Signs: Last Vital Signs Temp 36.7 C 10/11/19 08:18 Pulse 84 10/11/19 08:18 Resp 16 10/11/19 08:18 BP 120/79 10/11/19 08:18 Pulse Ox 97 10/11/19 08:18 I/O: Intake & Output 10/10/19 10/11/19 10/11/19 23:59 07:59 15:59 Intake Total 980 400 Output Total 900 475 Balance 80 -75 Laboratory Tests 10/11/19 05:25 10/11/19 05:26 10/11/19 10/11/19 10/11/19 05:25 05:26 07:41 WBC 6.3 RBC 3.24 L Hgb 11.6 L Hct 33.7 L MCV 104.0 H MCH 35.8 H MCHC 34.4 RDW 13.0 Plt Count 71 L MPV 12.4 H Immature Gran % (Auto) 0.3 Neut % (Auto) 60.8 Lymph % (Auto) 17.9 L [place] % (Auto) 18.0 H Eos % (Auto) 2.5 Baso % (Auto) 0.5 Lymph # (Auto) 1.13 [place] # (Auto) 1.1 H Eos # (Auto) 0.2 Baso # (Auto) 0.0 Abs Immat Gran (auto) 0.02 Absolute Neuts (auto) 3.9 Absolute Nucleated RBC 0.0 Nucleated RBC % 0.0 % Immature Plt Fraction 7.2 PT 20.2 H INR 1.8 APTT 37.6 H Sodium 135 L Potassium 3.7 Chloride 103 Carbon Dioxide 25 BUN 9 Creatinine 0.60 L Estim Creat Clear Calc 104 Estimated GFR > 60 Glucose 100 Calcium 7.7 L Magnesium 1.8 Total Bilirubin 1.1 AST 28 ALT 15 Alkaline Phosphatase 122 Total Protein 6.0 L Albumin 2.1 L Microbiology 10/08/19 09:18 Abdominal Fluid Anaerobic Culture - Preliminary 10/08/19 09:18 Abdominal Fluid Aerobic Culture - Preliminary Post-procedural complaints: none Patient Feedback: Patient satisfied with anesthetic care.
--- NOTE | 2019-10-11 13:23 | WPDGIPROGNO ---
Progress Note: A&P Assessment and Plan (1) Cirrhosis: Qualifiers: Ascites presence: with ascites Hepatic cirrhosis type: unspecified hepatic cirrhosis Qualified Code(s): K74.60 - Unspecified cirrhosis of liver; R18.8 - Other ascites Code(s): K74.60 - Unspecified cirrhosis of liver Status: Chronic Assessment and Plan: will get 2nd paracentesis today, 2g na diet, ideally will need diuretics (probably low dose given HCM) work up for cirrhosis in progress, follow up office in 2-3 weeks he never had a colonoscopy, we can schedule one as outpatient (2) Ascites: Qualifiers: Ascites type: other type Qualified Code(s): R18.8 - Other ascites Code(s): R18.8 - Other ascites Status: Chronic (3) Portal venous hypertension: Code(s): K76.6 - Portal hypertension Status: Chronic Assessment and Plan: no varices but mild PHG (4) Hypertrophic cardiomyopathy: Code(s): I42.2 - Other hypertrophic cardiomyopathy Status: Acute Subjective Date/time seen: 10/11/19 13:23 Interval history: no new events, he will have another paracentesis later today. EGD yesterday showed mild PHG, no varices, HH. Review of Systems Review of Systems: All systems reviewed & are unremarkable except as noted in HPI and below Exam Const: General: comfortable and no acute distress HENMT: General nose exam: Normal nares present Eyes: General: appearance normal, both eyes and all related structures Neck: Neck: no JVD Resp: Auscultation: clear to auscultation bilaterally Cardio: Rate: regular rate Rhythm: regular rhythm Heart sounds: Murmur heart sound present GI: GI Palp: Yes Soft to palpation and No Tenderness to palpation present (GI) Percussion: Yes Fluid wave present Auscultation: normal bowel sounds Skin: General skin exam: normal color Neuro: General: gait normal Speech: normal speech Extrem: General: pedal edema Psych: Mental Status: mental status grossly normal Objective Data Vital Signs Vital Signs: Vital Signs - 24 hr 10/10/19 14:00 10/10/19 14:35 10/10/19 14:45 Temperature 98.2 F Pulse Rate 65 68 72 Respiratory Rate 16 20 20 Blood Pressure 125/77 Pulse Oximetry 95 10/10/19 23:00 10/11/19 00:00 10/11/19 06:00 Temperature 98.4 F 98 F Pulse Rate 72 81 93 Respiratory Rate 20 16 16 Blood Pressure 111/73 123/86 Pulse Oximetry 95 96 98 10/11/19 08:18 Temperature 98.1 F Pulse Rate 84 Respiratory Rate 16 Blood Pressure 120/79 Pulse Oximetry 97 Intake/Output Intake/Output: Intake & Output 10/08/19 10/09/19 10/10/19 10/11/19 23:59 23:59 23:59 23:59 Intake Total 1370 2460 1580 400 Output Total 6700 490 900 475 Balance -5330 1970 680 -75 Meds/Results Medications: Active Medications Generic Name Dose Route Start Last Admin Trade Name Freq PRN Reason Stop Dose Admin Acetaminophen 650 mg 10/09/19 16:44 Tylenol Tablet PO Q6H PRN Mild Pain (1-3) or Fever Albuterol 2.5 mg 10/10/19 14:14 10/10/19 14:36 Albuterol Sulf Neb 2.5mg/0.5ml INHALATION 2.5 mg Q4HRT PRN Administration Shortness Of Breath Lorazepam 1 mg 10/08/19 14:47 Ativan Inj IV PUSH Q4HR PRN alcohol withdrawal Pantoprazole Sodium 40 mg 10/08/19 09:00 10/11/19 08:14 Protonix Iv IV PUSH 40 mg Q12HR LINDA Administration Radiology Results: ITS Impressions Chest X-Ray 10/07/19 16:46 IMPRESSION: Multifocal bibasilar linear opacities most likely atelectasis. Pneumonia not excludable. Abdomen/Pelvis CT 10/07/19 16:48 IMPRESSION: 1. Cirrhosis with portal venous hypertension and large amount of ascites. 2. Wall thickening the distal esophagus most likely related to gastroesophageal varices with differential including esophagitis. 3. Right inguinal hernia containing small amount of fat and ascites. Venous Doppler Study 10/08/19 11:03 IMPRESSION: 1. No deep venous thrombosis in
[2019-10-11 23:31] LABS: Albumin Peritoneal Fluid 0.6 g/dL
[2019-10-12 02:29] LABS: Amylase Peritoneal Fluid 14 U/L
[2019-10-12 03:53] LABS: Ceruloplasmin 21 mg/dL (18-36)
--- NOTE | 2019-10-12 07:20 | PM.DS ---
DS: Diagnosis Admitting Diagnosis Admitting Diagnosis: Generalized edema Discharge Diagnosis (1) Cirrhosis: Qualifiers: Ascites presence: with ascites Hepatic cirrhosis type: unspecified hepatic cirrhosis Qualified Code(s): K74.60 - Unspecified cirrhosis of liver; R18.8 - Other ascites Code(s): K74.60 - Unspecified cirrhosis of liver Status: Chronic Assessment and Plan: ------CT findings suggestive of cirrhosis. EGD shows no esophageal varices. Patient stated that he drinks 1-2 drinks/day for unclear time frame. Hepatitis panel negative. Unclear etiology at this moment; possible alcohol induced vs idiopathic vs other. Ammonia WNL yesterday. Does not appear encephalopathic. CHEL, alpha alpha 1 antitrypsin, ceruloplasmin, mitochondrial M2 antibody all pending. Patient plans to follow up with Dr. Guerra outpatient. He received 2 paracentesis while here and is feeling much better. He would benefit from diuretic therapy but echo finding shows HCM and cardiology does not recommend diuretics at this time. They recommend a low salt diet. (2) Anasarca: Code(s): R60.1 - Generalized edema Status: Chronic Assessment and Plan: Edema improved with elevated. paracentesis x 2. Pt has no SOB or MADDEN. (3) Ascites: Qualifiers: Ascites type: other type Qualified Code(s): R18.8 - Other ascites Code(s): R18.8 - Other ascites Status: Chronic Assessment and Plan: Paracentesis today chris 5 L clear tabatha fluid x 2; microbiology negative to date (4) Portal venous hypertension: Code(s): K76.6 - Portal hypertension Status: Chronic (5) Inguinal hernia: Code(s): K40.90 - Unilateral inguinal hernia, without obstruction or gangrene, not specified as recurrent Status: Acute (6) Esophagitis: Code(s): K20.9 - Esophagitis, unspecified Status: Acute (7) Hypertrophic cardiomyopathy: Code(s): I42.2 - Other hypertrophic cardiomyopathy Status: Acute Assessment and Plan: Found on Echo earlier in stay. Discussed with patient in detail. cardiology recommends no lasix/diuretics for now given these results Place patient on low sodium diet elevate legs to attempt to remove some fluid Discussed the importance of following up with his PCP once established and then getting referred to a Icicle Machine Operator for further management and follow up. DS: Summary Hospital Course Reason for hospitalization: New onset cirrhosis Hospital Course: Patient is 64-year-old male who presented emergency room for 50 lb weight gain over 2 months. He has no history of heart failure or liver disease upon arrival. He also had some mild shortness of breath. Vitals in the ER were stable. White count normal 7.0, hemoglobin 12.6, hematocrit 37.6, platelets 105. BMP relatively normal. Showed cirrhosis with portal venous hypertension and large amount of ascites, there is also distal esophageal wall thickening and a right inguinal hernia containing small amount of fat and ascites. Chest x-ray showed multifocal bibasilar linear opacities most likely atelectasis. Patient was admitted to the hospitalist service and initially started on diuretics. Showed hypertrophic cardiomyopathy with mild LVOT gradient. This was discussed by the previous provider with Cardiology who recommended no diuretics for this patient. There is no need for an inpatient consultation but they would be happy to see him outpatient. The patient denied any symptoms of dyspnea on exertion or passing out. He underwent a Doppler which showed no DVTs. He had a paracentesis on 10/08 which yielded 5000 mL and another one on 10/11 which also yeilded 5000ml of ascites. No organisms or white blood cells and the culture will be continuously monitored until finalized. No infection was suspected. On an EGD which showed no esophageal varices but did show dyskinesis of the esophagus, esophageal
[2019-10-12 08:15] LABS: Glucose Peritoneal Fluid 103 mg/dL; LDH Peritoneal Fluid 64 U/L (<63); Total Protein Peritoneal Fluid <3.0 g/dL
--- NOTE | 2019-10-14 13:28 | PC.NURSE ---
CHEL is negative. Ceruloplasm is 21. Micro is negative. WILLIAM Timmons.
[2019-10-15 11:16] LABS: Mitochondrial (M2) Ab (IgG) <=20.0 U (<=20.0)
--- NOTE | 2019-10-18 11:08 | PC.NURSE ---
Mitochondria M2 is nml; <=20, Alpha 1 antitrypsin shows phenotype PI*MM. Results to PERI Timmons and faxed to PCP; Dr. Dang.
== END 2019-10-11 17:25 | disposition home or self-care (01) ==
LOC: ANHED 17:38 → ANH3MED 18:44
PROVIDERS: Internal Medicine Gastroenterology; Nurse Practitioner; Physician Assistant; Radiology Diagnostic Radiology; Admitting Provider Family Medicine; Emergency Provider Emergency Medicine; PCP Family Medicine Adolescent Medicine; Visit Provider Physician Assistant
PROC: 0DJ08ZZ Inspection of Upper Intestinal Tract, Via Natural or Artificial Opening Endoscopic (ICD-10-PCS; CPT 43235; principal; 2019-10-10 12:30)
DX: K74.60 Unspecified cirrhosis of liver (principal); R18.8 Other ascites; I85.10 Secondary esophageal varices without bleeding; K40.90 Unilateral inguinal hernia, without obstruction or gangrene, not specified as recurrent; K76.6 Portal hypertension; K20.9 Esophagitis, unspecified; I42.2 Other hypertrophic cardiomyopathy; J45.909 Unspecified asthma, uncomplicated; Z87.891 Personal history of nicotine dependence; K22.4 Dyskinesia of esophagus; K22.2 Esophageal obstruction; K44.9 Diaphragmatic hernia without obstruction or gangrene; K29.70 Gastritis, unspecified, without bleeding
CPT/HCPCS: 36415; 49083; 71046; 74177; 80053; 80074; 81001; 81003; 82040; 82042; 82103; 82140; 82150; 82390; 82607; 82728; 82746; 82945; 83520; 83540; 83550; 83615; 83690; 83735; 83880; 84157; 84439; 84443; 84466; 84480; 85025; 85055; 85610; 85730; 86038; 87070; 87075; 87205; 88104; 88108; 88305; 89051; 93306; 93970; 94640; 96374; 99285; A9270; C1729; C9113; J1940; J2704; J3480; J7120; Q9967

== ENCOUNTER 2019-11-14 13:01 | Outpatient (CLI) | payer OTHER, SELFPAY ==
[2019-11-14 13:30] LABS: Basophils Percent Auto 0.5 % (0.2-1.2); Eosinophils Absolute Auto 0.1 K/mm3 (0-0.3); Eosinophils Percent Auto 1.9 % (0-4.4); Hematocrit 36.2 % (42.0-52.0); Hemoglobin 12.2 g/dL (14.0-18.0); Immature Granulocyte Absolute 0.04 K/mm3 (0.00-0.031); Immature Granulocyte Percent A 0.6 % (0-0.5); Immature Platelet Fraction Pct 7.2 % (0.9-11.2); Lymphocytes Absolute Auto 0.95 K/mm3 (0.9-3.2); Lymphocytes Percent Auto 15.3 % (18.3-44.2); Mean Corpuscular HGB Conc 33.7 g/dl (32-36); Mean Corpuscular Hemoglobin 35.5 pg (26-34); Mean Corpuscular Volume 105.2 fl (80-100); Mean Platelet Volume 11.9 fl (7.4-10.4); Monocytes Absolute Auto 1.6 K/mm3 (0.1-0.6); Monocytes Percent Auto 25.2 % (2.6-8.5); Neutrophils Absolute Auto 3.5 K/mm3 (1.3-6.7); Neutrophils Percent Auto 56.5 % (45.5-73.1); Platelet Count Result 66 k/mm3 (150-375); Red Blood Count 3.44 M/mm3 (4.6-6.20); Red Cell Distribution Width 14.6 % (11.5-14.5); White Blood Count 6.2 K/mm3 (4.5-10.0)
[2019-11-14 13:38] LABS: INR 1.7; Prothrombin Time 19.1 Seconds (11.1-14.7)
[2019-11-14 13:41] LABS: Alanine Aminotransferase 17 U/L (4-50); Albumin Level 2.7 g/dL (3.5-5.1); Alkaline Phosphatase 131 U/L (38-126); Aspartate Amino Transferase 33 U/L (17-59); Bilirubin,Total 1.8 mg/dL (0.2-1.3); Blood Urea Nitrogen 12 mg/dL (9-20); Calcium 8.1 mg/dL (8.4-10.2); Carbon Dioxide 27 mmol/L (22-30); Chloride 102 mmol/L (98-107); Estimated Glomerular Filt Rate > 60; Glucose 107 mg/dL (75-110); Potassium 3.8 mmol/L (3.4-5.0); Sodium 136 mmol/L (137-145)
== END 2019-11-14 13:02 | disposition home or self-care (01) ==
PROVIDERS: PCP Emergency Medicine; Visit Provider Internal Medicine Gastroenterology
DX: K74.60 Unspecified cirrhosis of liver (principal); R18.8 Other ascites
CPT/HCPCS: 36415; 80053; 85025; 85055; 85610

== ENCOUNTER 2019-11-14 13:33 | Emergency (ER) | payer OTHER, SELFPAY ==
--- NOTE | ~2019-11-14 | US_ITS ---
EXAMINATION: US paracentesis abd w/image DATE: 11/14/2019 15:44 INDICATION: Ascites. TECHNIQUE: The procedure and its risks and benefits were discussed with the patient. Potential risks discussed included bleeding and infection. The skin was prepped and draped in sterile fashion. 1% lid ocaine was used for local anesthesia. Under ultrasound guidance, a 5 Fr catheter with trochar was adv anced into the ascites in the left lower quadrant. Fluid was aspirated into vacuum bottles. The bhumika ter was removed, and a dressing was applied. There were no immediate complications. FINDINGS: Ultrasound images demonstrate ascites and the catheter within the fluid. IMPRESSION: 1. Successful ultrasound-guided paracentesis yielding 5000 mL of clear yellowish fluid. Reviewed, dictated and finalized at location A. IMPRESSION: 1. Successful ultrasound-guided paracentesis yielding 5000 mL of clear yellowi sh fluid.
[2019-11-14 13:41] VITALS: BP 142/88; PULSE 112; RESP 20; TEMP 36.7; O2SAT 96
[2019-11-14 14:03] LABS: Basophils Percent Auto 0.5 % (0.2-1.2); Eosinophils Absolute Auto 0.1 K/mm3 (0-0.3); Eosinophils Percent Auto 1.6 % (0-4.4); Hemoglobin 12.7 g/dL (14.0-18.0); Immature Granulocyte Absolute 0.03 K/mm3 (0.00-0.031); Immature Granulocyte Percent A 0.5 % (0-0.5); Immature Platelet Fraction Pct 7.8 % (0.9-11.2); Lymphocytes Absolute Auto 1.04 K/mm3 (0.9-3.2); Lymphocytes Percent Auto 16.1 % (18.3-44.2); Mean Corpuscular HGB Conc 33.4 g/dl (32-36); Mean Corpuscular Hemoglobin 35.3 pg (26-34); Mean Corpuscular Volume 105.6 fl (80-100); Mean Platelet Volume 11.9 fl (7.4-10.4); Monocytes Absolute Auto 1.4 K/mm3 (0.1-0.6); Monocytes Percent Auto 22.2 % (2.6-8.5); Neutrophils Absolute Auto 3.8 K/mm3 (1.3-6.7); Neutrophils Percent Auto 59.1 % (45.5-73.1); Platelet Count Result 67 k/mm3 (150-375); Red Cell Distribution Width 14.6 % (11.5-14.5); White Blood Count 6.4 K/mm3 (4.5-10.0)
--- NOTE | 2019-11-14 14:09 | ED.ABDPAIN ---
HPI - Abdominal Pain General Chief Complaint: Abdominal Pain Stated Complaint: requesting fluid removal from abdomen Time Seen by Provider: 11/14/19 13:58 Source: patient Mode of arrival: ambulatory Limitations: no limitations History of Present Illness HPI narrative: Pt is a 64 y/o male who presents to the ED with c/o ABD distention. He states that he saw his PCP this morning and he was told to come to the ED to get fluid drained from his ABD. Pt was seen at [facility] 3 days ago by a Senior Financial Reporting Accountant at [facility], where he got 10 liters of fluid drained from his ABD. Pt was also seen in this ED on 10/07/19 and was admitted to the hospital and he had about 10 liters of fluid removed from his ABD. He has been taking the diuretics that he was Rx on Thursday (4 days ago) and he took it today as well. He notes that his BLE swelling is present but has been getting better. Pt has a H/o cirrhosis and anasarca. MD elicited complaint: other (ABD distention) Pertinent past history: other (cirrhosis, anasarca) Severity: similar to previous episodes Quality: fullness Associated symptoms: other (BLE swelling) Treatments prior to arrival: other (diuretics) Related Data Home Medications Medication Instructions Recorded Confirmed furosemide 20 mg PO DAILY 11/14/19 spironolactone 50 mg PO DAILY 11/14/19 Allergies Allergy/AdvReac Type Severity Reaction Status Date / Time No Known Allergies Allergy Mild Verified 11/14/19 13:45 Review of Systems Review of Systems: All systems reviewed & are unremarkable except as noted in HPI and below Gastrointestinal: Gastrointestinal: Reports bloating Musculoskeletal: Musculoskeletal: Reports other (BLE swelling) [facility] Past Medical History Medical History Anasarca Ascites Asthma Cirrhosis Esophageal hernia Hypertrophic obstructive cardiomyopathy (HOCM) Portal venous hypertension Surgical History Surgical History No significant past surgical history Social History Social History Social History: Patient is . He has 1 adopted child. 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 His 1 adopted daughter is the power assistant county attorney her name is Shayy. Patient stated he smoked about half pack a cigarettes a day from the age of [age]. He smokes cigars for short period time. Patient denies any alcohol use. He said he used to drink a couple beers during the summertime once a week. Smoking packs per day: 1 Smoking cigarettes per day: 20.0 Years smoked: 37 Smoking pack-years: 37.00 Smoking status: Former smoker Tobacco type: cigarettes Smoking end date: 08/24/14 Alcohol intake: never Substance use: never Additional occupation/education comments: service tech/welder Gender identity (if verbalized by the patient): Male Spiritual care concerns: No Agree to blood products: No Exam Const: General: healthy appearing, no acute distress and well developed Nutritional Appearance: well nourished Orientation/consciousness: patient oriented x3 (alert) and Other orientation findings (Alert) Limitations: no limitations HENMT: Head: normocephalic and atraumatic Ears: external ears normal General nose exam: No nasal discharge present and no epistaxis Face and sinus: face symmetric Mouth: Yes lip normal, Yes tongue normal and Yes moist mucous membranes Eyes: Conjunctivae: conjunctivae normal Sclera: scleral abnormality bilateral (icterus) EOM: EOMs intact bilaterally Neck: Neck: full ROM Thyroid: thyroid normal Chest: Chest palpation & inspection: no tenderness Resp: Effort & Inspection: normal respiratory effort Auscultation: clear to auscultation bilaterally, no rales, no rhonchi, no wheezes and other (breath sounds equal) Cardio: Rate: regular rate Rhythm: regular rhythm Heart sounds: no gallops and no murmurs
[2019-11-14 14:14] LABS: Alanine Aminotransferase 17 U/L (4-50); Albumin Level 2.8 g/dL (3.5-5.1); Alkaline Phosphatase 143 U/L (38-126); Aspartate Amino Transferase 35 U/L (17-59); Bilirubin,Total 1.9 mg/dL (0.2-1.3); Blood Urea Nitrogen 12 mg/dL (9-20); Calcium 8.1 mg/dL (8.4-10.2); Carbon Dioxide 26 mmol/L (22-30); Chloride 102 mmol/L (98-107); Estimated CRCL calculation 104 ml/min; Estimated Glomerular Filt Rate > 60; Glucose 103 mg/dL (75-110); Lipase 179 U/L (23-300); Potassium 3.7 mmol/L (3.4-5.0); Sodium 135 mmol/L (137-145)
[2019-11-14 14:21] VITALS: BP 122/88; PULSE 78; RESP 16; O2SAT 100
--- NOTE | 2019-11-14 14:21 | PC.NURSE ---
pt attempting to urinate at this time, refusing straight cath.
[2019-11-14 14:39] LABS: Add Urine Microscopic? NO; Appearance Urine Clear (Clear); Bilirubin Urine Negative (Negative); Blood Urine Negative (Negative); Color Urine Yellow (Yellow); Glucose Urine UA Negative (Negative); Ketones Urine Negative (Negative); Leukocyte Esterase Ur Negative LEU/UL (Negative); Nitrate Urine Negative (Negative); Protein Urine Negative (Negative); Specific Grav Ur 1.012 (1.001-1.035); Urobilinogen Urine Negative mg/dL (<2.0)
[2019-11-14 14:47] LABS: INR 1.7; Prothrombin Time 19.4 Seconds (11.1-14.7)
[2019-11-14 14:48] LABS: Partial Thromboplastin Time 38.3 SECONDS (22.3-36.8)
--- NOTE | 2019-11-14 15:12 | PC.NURSE ---
PT TO ULTRASOUND AT THIS TIME IN ST[facility]CHER PER MACADAM RAKER.
[2019-11-14 16:04] VITALS: BP 120/77; PULSE 91; RESP 16; O2SAT 97
== END 2019-11-14 16:05 | disposition home or self-care (01) ==
PROVIDERS: Emergency Provider Emergency Medicine; PCP Emergency Medicine
DX: R18.8 Other ascites (principal); K74.60 Unspecified cirrhosis of liver; J45.909 Unspecified asthma, uncomplicated; K76.6 Portal hypertension; I42.1 Obstructive hypertrophic cardiomyopathy; Z87.891 Personal history of nicotine dependence
CPT/HCPCS: 36415; 49083; 80053; 81003; 83690; 85025; 85055; 85610; 85730; 87070; 87075; 87205; 99283

== ENCOUNTER → 2019-11-24 14:52 | Outpatient (CLI) | payer OTHER, SELFPAY ==
--- NOTE | ~2019-11-24 | XR_ITS ---
XR chest 2V DATE: 11/24/2019 15:13 INDICATION: Shortness of breath, decreased breath sounds. History of asthma. Former smoker. TECHNIQUE: 2 views COMPARISON: 10/07/2019 PA and lateral chest FINDINGS: There are bilateral pleural effusions, minimal on the left, moderately large on the right. There is associated atelectasis/infiltrate in the right lower lung. There is minimal left basilar ate lectasis. No pulmonary vascular congestion is noted. Heart size appears normal. Mild unfolding of the thoracic aorta. IMPRESSION: Right basilar infiltrate and/atelectasis and moderate right pleural effusion Minimal left pleural effusion and left basilar atelectasis Reviewed, dictated and finalized at location A.
== END ==
PROVIDERS: PCP Emergency Medicine; Visit Provider Emergency Medicine
DX: R06.02 Shortness of breath (principal); R91.8 Other nonspecific abnormal finding of lung field; J90 Pleural effusion, not elsewhere classified; Z87.891 Personal history of nicotine dependence; Z87.09 Personal history of other diseases of the respiratory system
CPT/HCPCS: 71046

== ENCOUNTER 2019-11-24 15:31 | Inpatient (IN) | payer OTHER, SELFPAY ==
--- NOTE | ~2019-11-24 | XR_ITS ---
XR chest 2V DATE: 11/25/2019 15:23 INDICATION: Pleural effusion; post thoracentesis examination TECHNIQUE: AP and lateral chest COMPARISON: 11/23/2021 view chest FINDINGS: Large right pleural effusion is again noted. There is no evidence of pneumothorax following reported thoracentesis. There is infiltrate and/atelectasis in the right lower lung. There is minimal left pleural effusion a nd mild left basilar infiltrate and/or atelectasis. Heart size appears within normal range. IMPRESSION: Persistent large right pleural effusion, small left pleural effusion Bibasilar infiltrate or atelectasis, right greater than left No evidence of pneumothorax following reported right thoracentesis Reviewed, dictated and finalized at location A. IMPRESSION: Persistent large right pleural effusion, small left pleural effusio n Bibasilar infiltrate or atelectasis, right greater than left No evidence of pneumothorax following reported right thoracentesis
--- NOTE | ~2019-11-24 | US_ITS ---
US venous doppler [facility] DATE: 11/25/2019 15:35 INDICATION: Swelling of the lower extremities; thigh edema TECHNIQUE: Real-time and color flow imaging and Doppler analysis of the veins of the lower extremitie s COMPARISON: 10/08/2019 bilateral venous duplex examination of the lower extremities; no deep venous th rombosis was noted FINDINGS: The greater saphenous veins are patent. There is spontaneous and phasic flow and normal aug mentation and color flow signal and normal compression of the deep veins of both lower extremities. B ilateral lower extremity edema is noted. IMPRESSION: No evidence of deep venous thrombosis of either leg Bilateral lower extremity edema Reviewed, dictated and finalized at Location A. Reviewed, dictated and finalized at location A.
--- NOTE | ~2019-11-24 | US_ITS ---
EXAMINATION: US paracentesis abd w/image DATE: 11/25/2019 15:28 INDICATION: Ascites. TECHNIQUE: The procedure and its risks, benefits, and alternatives were discussed with the patient. P otential risks discussed included bleeding and infection. The skin was prepped and draped in sterile fashion. 1% lidocaine was used for local anesthesia. Under ultrasound guidance, a 5 Fr catheter with trochar was advanced into the ascites in the left lower quadrant. Fluid was aspirated. The catheter w as removed, and a dressing was applied. There were no immediate complications. FINDINGS: Ultrasound images demonstrate ascites and the catheter within the fluid. IMPRESSION: 1. Successful ultrasound-guided paracentesis yielding 4800 mL of clear, yellow fluid. Reviewed, dictated and finalized at location A.
--- NOTE | ~2019-11-24 | US_ITS ---
EXAMINATION: US thoracentesis DATE: 11/25/2019 15:26 INDICATION: Right pleural effusion. TECHNIQUE: The procedure and its risks, benefits, and alternatives were discussed with the patient. P otential risks discussed included bleeding, infection, and pneumothorax. The patient understood the r isks and agreed to proceed. The skin was prepped and draped in sterile fashion. 1% lidocaine was used for local anesthesia. Under ultrasound guidance, a 5 Fr catheter with trochar was advanced into the right pleural effusion. Fluid was aspirated. The catheter was removed, and a dressing was applied. Th ere were no immediate complications. FINDINGS: Ultrasound images demonstrate a right pleural effusion and the catheter within the fluid. IMPRESSION: 1. Successful ultrasound-guided thoracentesis yielding 1000 mL of clear, tabatha-colored fluid. Reviewed, dictated and finalized at location A. IMPRESSION: 1. Successful ultrasound-guided thoracentesis yielding 1000 mL of clear, tabatha -colored fluid.
[2019-11-24 15:45] VITALS: BP 123/74; PULSE 102; RESP 18; TEMP 37.3; O2SAT 92
--- NOTE | 2019-11-24 15:54 | ED.ABDPAIN ---
HPI - Abdominal Pain General Chief Complaint: Abdominal Pain <WILLIAM Way Last Filed: 11/24/19 19:15> Stated Complaint: Wants stomach tapped <WILLIAM Way Last Filed: 11/24/19 19:15> Time Seen by Provider: 11/24/19 15:[address] <[address] Last Filed: 11/24/19 19:15> Source: patient <WILLIAM Way Last Filed: 11/24/19 19:15> Mode of arrival: ambulatory <WILLIAM Way Last Filed: 11/24/19 19:15> Limitations: no limitations <WILLIAM Way Last Filed: 11/24/19 19:15> History of Present Illness HPI narrative: Pt is a 64 y/o male, with a H/O cirrhosis and ascites, who presents to the ED with c/o ABD distention and states that his PCP, Dr. Spencer told him to come and get his ABD tapped urgently. He states that he was supposed to see a senior database programmer today at [place], but his appointment got cancelled. He reports a chronic intermittent cough with phlegm and SOB. He states that he has been having problems with ABD distention for a month and a half and states that he gets SOB when he is full of fluid. He denies ABD pain, fever, vomiting, dysuria, or CP. He notes a H/O asthma and states that he used to use an inhaler but does not currently use one. Pt has been taking all of his medications per usual. He did cut his grass yesterday which caused his legs to swell more. He is a former drinker, but denies smoking or using drugs. The last time he had his ABD tapped was 11/14/19. Pt does not know who is senior database programmer is, but the number he calls is as following, . <WILLIAM Way Last Filed: 11/24/19 19:15> MD elicited complaint: other (ABD distention) <WILLIAM Way Last Filed: 11/24/19 19:15> Pertinent past history: other (cirhossis, ascites) <WILLIAM Way Last Filed: 11/24/19 19:15> Location: diffuse <WILLIAM Way Last Filed: 11/24/19 19:15> Severity: similar to previous episodes <WILLIAM Way Last Filed: 11/24/19 19:15> Quality: fullness <WILLIAM Way Last Filed: 11/24/19 19:15> Context: confirms history of similar episodes <WILLIAM Way Last Filed: 11/24/19 19:15> Associated symptoms: other (cough, SOB) <WILLIAM Way Last Filed: 11/24/19 19:15> Related Data Home Medications: Home Medications Medication Instructions Recorded Confirmed furosemide 20 mg PO DAILY 11/14/19 11/24/19 spironolactone 50 mg PO DAILY 11/14/19 11/24/[address] <[address] Last Filed: 11/24/19 19:15> Allergies/Adverse Reactions: Allergies Allergy/AdvReac Type Severity Reaction Status Date / Time No Known Allergies Allergy Mild Verified 11/24/19 15:49 <[address] Last Filed: 11/24/19 19:15> Review of Systems Review of Systems: All systems reviewed & are unremarkable except as noted in HPI and below <WILLIAM Way Last Filed: 11/24/19 19:15> Constitutional: Constitutional: Denies fever(s) <WILLIAM Way Last Filed: 11/24/19 19:15> Cardiovascular: Cardiovascular: Denies chest pain and Reports leg edema (BLE) <WILLIAM Way Last Filed: 11/24/19 19:15> Respiratory: Respiratory: Reports cough and Reports dyspnea <WILLIAM Way Last Filed: 11/24/19 19:15> Gastrointestinal: Gastrointestinal: Denies abdominal pain, Reports bloating (ABD distended) and Denies vomiting <Sheron Bhat PA-C - Last Filed: 11/24/19 19:15> Genitourinary: Genitourinary: Denies dysuria <Sheron Bhat PA-C - Last Filed: 11/24/19 19:15> [facility] Past Medical History Medical History: Medical History (Updated 11/24/19 @ 22:30 by Kellie Oseguera PA-C) Anasarca Asthma Cirrhosis EGD September [address] Bush showed no esophageal varices. Esophageal hernia Hypertrophic obstructive cardiomyopathy (HOCM) Echocardiogram on 10/08/2019 showed hyperdynami
[2019-11-24 16:19] LABS: Basophils Percent Auto 0.5 % (0.2-1.2); Eosinophils Absolute Auto 0.1 K/mm3 (0-0.3); Eosinophils Percent Auto 0.9 % (0-4.4); Hematocrit 35.3 % (42.0-52.0); Hemoglobin 11.8 g/dL (14.0-18.0); Immature Granulocyte Absolute 0.05 K/mm3 (0.00-0.031); Immature Granulocyte Percent A 0.6 % (0-0.5); Lymphocytes Absolute Auto 1.07 K/mm3 (0.9-3.2); Lymphocytes Percent Auto 13.5 % (18.3-44.2); Mean Corpuscular HGB Conc 33.4 g/dl (32-36); Mean Corpuscular Hemoglobin 34.8 pg (26-34); Mean Corpuscular Volume 104.1 fl (80-100); Mean Platelet Volume 11.8 fl (7.4-10.4); Monocytes Absolute Auto 1.5 K/mm3 (0.1-0.6); Monocytes Percent Auto 18.9 % (2.6-8.5); Neutrophils Absolute Auto 5.2 K/mm3 (1.3-6.7); Neutrophils Percent Auto 65.6 % (45.5-73.1); Platelet Count Result 98 k/mm3 (150-375); Red Blood Count 3.39 M/mm3 (4.6-6.20); Red Cell Distribution Width 14.1 % (11.5-14.5); White Blood Count 7.9 K/mm3 (4.5-10.0)
[2019-11-24 16:32] LABS: Alanine Aminotransferase 15 U/L (4-50); Albumin Level 2.6 g/dL (3.5-5.1); Alkaline Phosphatase 120 U/L (38-126); Aspartate Amino Transferase 30 U/L (17-59); Bilirubin,Total 2.4 mg/dL (0.2-1.3); Blood Urea Nitrogen 9 mg/dL (9-20); Calcium 8.3 mg/dL (8.4-10.2); Carbon Dioxide 29 mmol/L (22-30); Chloride 99 mmol/L (98-107); Estimated CRCL calculation 104 ml/min; Estimated Glomerular Filt Rate > 60; Glucose 95 mg/dL (75-110); Potassium 3.7 mmol/L (3.4-5.0); Sodium 133 mmol/L (137-145)
[2019-11-24 16:40] LABS: NT Pro B Type Natriuretic Pept 387 PG/ML (5-100)
[2019-11-24] MEDS: FUROSEMIDE INJ 40 MG/4 ML VIAL IV PUSH (17:46)
[2019-11-24 17:49] VITALS: BP 126/80; PULSE 97; RESP 17; O2SAT 98
[2019-11-24 20:30] VITALS: BP 132/74; PULSE 73; RESP 16; O2SAT 96
[2019-11-24 21:08] VITALS: BP 121/68; PULSE 104; RESP 16; TEMP 36.4; O2SAT 97
--- NOTE | 2019-11-24 21:27 | ADMGEN ---
This patient, Bo Freedman, was admitted to 2 Medical Room 241-01. Patient/family oriented to hospital policies and general routines including ID bracelet, bed and alarms, visiting hours, pain management, procedures, bathroom and other care routines, personal items, smoking policy, room service/diet, and visiting hours. Valuables list has been completed. Information on how to activate the Rapid Response Team has been discussed. Patient/Family are encouraged to report perceived risks to care and to ask questions if they do not understand what they are told or what they should do.
--- NOTE | 2019-11-24 22:00 | PM.IMHP ---
H&P: HPI History of Present Illness Chief complaint: Reaccumulation of ascites. Narrative: Bo Freedman is a 64-year-old male with cirrhosis and hypertrophic cardiomyopathy who presented to the emergency department earlier today, in need of paracentesis due to reaccumulation of ascites. He is known to the hospitalist service as he was admitted to us for several days in September 2019, in which he was admitted for new onset cirrhosis after 50 pound weight gain. Two paracenteses were performed during that stay, with negative cultures. He was seen by Dr. Bush and underwent EGD which showed dyskinesis of the esophagus, esophageal ring, however hernia, and gastritis for which he was started on a PPI. No esophageal varices were noted. He has since had 1 other paracentesis done as an outpatient, and was referred to a beater out in [place]. In fact, he had an appointment with them just this afternoon, but they heard him cough in the waiting room and told him that they could not see him. He was then instructed to come to the emergency department for paracentesis. Imaging in the emergency department demonstrated new right pleural effusion, and he is being admitted in this setting. Other than the increase ascites and shortness of breath with exertion which he blames on such, he has no complaints. With further questioning, he does mention that he has had a chronic cough intermittently over the years but that has just become a bit productive of cloudy phlegm over the past 5 days or so. He has also had some sinus congestion, for which she is taking Mucinex with benefit. Additionally, he has noticed that the edema in the lower legs has gotten worse over the past day, which he initially attributed to spending many hours mowing yesterday. He has not had chest pain, pleuritic pain, or resting shortness of breath. He denies fever, chills, and sweats. No nausea or vomiting. Denies diarrhea. No acholic stools. No pruritus. No recent travel or sick contacts. Denies abdominal pain. Review of Systems Review of Systems: Narrative: Twelve systems were reviewed with pertinent positives and negatives as per HPI. Except as documented, all other systems were reviewed and are negative. [facility] Past Medical History Medical History (Updated 11/24/19 @ 22:49 by Kellie Oseguera PA-C) Asthma Cirrhosis EGD September [address] Bush showed no esophageal varices. Esophageal hernia Hypertrophic obstructive cardiomyopathy (HOCM) Echocardiogram on 10/08/2019 showed hyperdynamic left ventricular systolic function with ejection fraction estimated > 70%, moderate symmetric septal increased left ventricular wall thickness, chordal systolic anterior motion seen with modest 16 millimeters LVOT gradient, all findings consistent with hypertrophic cardiomyopathy with mild LVOT gradient. Portal venous hypertension Surgical History Surgical History No significant past surgical history Family History Family History Unknown Family history unknown Father Acute myocardial infarction Sibling Diabetes mellitus Social History Social History (Updated 11/24/19 @ 22:32 by eKllie Oseguera PA-C) Social History: The patient lives in [place]. He is , and has 1 adopted child. 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 His daughter, Shayy, is his surrogate decision maker and he wishes to be a full code. He smoked about 0.5 to 1 pack of cigarettes per day and quit about 5 years ago.He smoked cigars for short period time. He denies ever being a heavy drinker, and says he has not drank much for several years. Denies drug use. 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
[2019-11-24 22:45] VITALS: BMI 27.2
[2019-11-24] MEDS: FUROSEMIDE INJ 40 MG/4 ML VIAL 20 MG IV PUSH (23:46)
[2019-11-25] VITALS (11 sets, daily range): BP systolic 105–134; BP diastolic 65–85; PULSE 88–97; RESP 16–24; TEMP 36.3–36.8; O2SAT 92–97
[2019-11-25 04:42] LABS: Basophils Percent Auto 0.4 % (0.2-1.2); Eosinophils Absolute Auto 0.2 K/mm3 (0-0.3); Eosinophils Percent Auto 2.2 % (0-4.4); Hematocrit 31.4 % (42.0-52.0); Hemoglobin 10.6 g/dL (14.0-18.0); Immature Granulocyte Absolute 0.04 K/mm3 (0.00-0.031); Immature Granulocyte Percent A 0.5 % (0-0.5); Immature Platelet Fraction Pct 7.1 % (0.9-11.2); Lymphocytes Absolute Auto 1.17 K/mm3 (0.9-3.2); Lymphocytes Percent Auto 15.2 % (18.3-44.2); Mean Corpuscular HGB Conc 33.8 g/dl (32-36); Mean Corpuscular Hemoglobin 34.5 pg (26-34); Mean Corpuscular Volume 102.3 fl (80-100); Mean Platelet Volume 11.5 fl (7.4-10.4); Monocytes Percent Auto 26.4 % (2.6-8.5); Neutrophils Absolute Auto 4.3 K/mm3 (1.3-6.7); Neutrophils Percent Auto 55.3 % (45.5-73.1); Platelet Count Result 84 k/mm3 (150-375); Red Blood Count 3.07 M/mm3 (4.6-6.20); White Blood Count 7.7 K/mm3 (4.5-10.0)
[2019-11-25 05:00] LABS: Alanine Aminotransferase 13 U/L (4-50); Albumin Level 2.1 g/dL (3.5-5.1); Alkaline Phosphatase 100 U/L (38-126); Aspartate Amino Transferase 24 U/L (17-59); Bilirubin,Total 1.7 mg/dL (0.2-1.3); Blood Urea Nitrogen 8 mg/dL (9-20); Calcium 7.8 mg/dL (8.4-10.2); Carbon Dioxide 30 mmol/L (22-30); Chloride 101 mmol/L (98-107); Estimated CRCL calculation 90 ml/min; Estimated Glomerular Filt Rate > 60; Glucose 101 mg/dL (75-110); INR 1.9; Magnesium 1.7 mg/dL (1.6-2.3); Phosphorus 3.6 mg/dL (2.5-4.5); Potassium 3.5 mmol/L (3.4-5.0); Prothrombin Time 21.7 Seconds (11.1-14.7); Sodium 132 mmol/L (137-145)
[2019-11-25 08:51] LABS: Cholesterol 81 mg/dL (0-200); Lactate Dehydrogenase 381 U/L (313-618); Triglycerides 36 mg/dL (<150)
[2019-11-25 09:03] LABS: Amylase 33 U/L (30-110)
[2019-11-25] MEDS: SPIRONOLACTONE 50 MG TABLET PO (09:17)
[2019-11-25] MEDS: PANTOPRAZOLE 40 MG TABLET PO ×2 (09:17→17:35)
[2019-11-25] MEDS: FUROSEMIDE INJ 40 MG/4 ML VIAL 20 MG IV PUSH ×2 (09:18→17:29)
[2019-11-25] MEDS: SODIUM CHLORIDE 0.9% IV 250 ML 30 ML IV CONT (11:00)
--- NOTE | 2019-11-25 11:32 | PM.IMPN ---
Progress Note: A&P Assessment and Plan (1) Pleural effusion on right: Code(s): J90 - Pleural effusion, not elsewhere classified Status: Acute Assessment and Plan: Moderate Sized Pleural effusion likely due to massive ascites and he will need therapeutic thoracentesis. Radiologist notes adjacent right basilar infiltrate and/or atelectasis. Pneumonia felt to be less likely by history; he is afebrile and has a normal white count. Thoracentesis to be completed today. Pending improvement of his INR. He was given 1 Unit of FFP. Continue monitoring patients symptoms before and after pleuracentesis. (2) Ascites: Code(s): R18.8 - Other ascites Status: Chronic Assessment and Plan: Continues to reaccumulate despite being compliant with furosemide and spironolactone at home which was doubled recently by his sales associate. Had appointment with sales associate prior to arrival to the emergency department, which was canceled as they heard the patient cough. Will cautiously diurese with IV furosemide, IV albumin and continue spironolactone being mindful of his volume status. Continue monitoring patient's symptoms after paracentesis and with diuresis. (3) Cirrhosis: Code(s): K74.60 - Unspecified cirrhosis of liver Status: Chronic Assessment and Plan: Cautious diuresis in 2 gram sodium diet. Monitor his bowel movements and fluid status. (4) Hypertrophic obstructive cardiomyopathy (HOCM): Code(s): I42.1 - Obstructive hypertrophic cardiomyopathy Status: Acute Assessment and Plan: Will need to be mindful of volume status while diuresing. Time Spent With Patient Time with patient: 25 - 35 minutes Subjective Date/time seen: 11/25/19 11:32 Interval history: Date of Service 11/25/2019: He reports feeling well today. He reports feeling short of breath with laying down flat, increased leg swelling bilaterally and abdominal distension which has been worse recently. He has been taking his spironolactone and Lasix twice daily because they were increased recently by his sales associate at [employer] without any improvement of his swelling. He reports not having a bowel movement yet today but he usually has at least 1 daily and he does not take anything for constipation. He denies any chest pain, fever, chills, abdominal pain, nausea, vomiting, changes appetite, diarrhea, constipation, calf pain or any other symptoms at this time. Review of Systems Review of Systems: All systems reviewed & are unremarkable except as noted in HPI and below Exam Narrative: Exam Narrative: General: 64-year-old man sitting up in bed watching TV. Appears comfortable. In no acute distress. Skin: Jaundice appearing. No jaundice or cyanosis. Good skin turgor. Neck: Full range of motion. Supple. Respiratory: Decreased breath sounds to right mid and lower lung field. Slight crackles noted to left lower lung field. No bony chest wall tenderness. Cardiovascular: The heart has a regular rate and rhythm without murmur. Lower extremities: 2-3+ pitting edema to bilateral lower extremities, left calf area and right willams area. Distal pulses are easily palpated. No calf tenderness to palpation. Gastrointestinal: The abdomen is severely distended, tympanic. Nontender to palpation with active bowel sounds. Psychiatric: Lucid and oriented. Memory intact. Neurologic: No focal deficits. Speech is clear. No facial drooping. Objective Data Vital Signs Vital Signs: Vital Signs - 24 hr 11/24/19 15:45 11/24/19 17:49 11/24/19 20:30 Temperature 99.2 F Pulse Rate 102 H 97 73 Respiratory Rate 18 17 16 Blood Pressure 123/74 126/80 132/74 Pulse Oximetry 92 98 96 11/24/19 21:08 11/25/19 06:00 11/25/19 08:00 Temperatur
[2019-11-25 14:06] LABS: INR 1.6
[2019-11-25 15:15] LABS: pH Pleural Fluid 7.536 (7.210-7.500)
[2019-11-25 16:31] LABS: Appearance Pleural Fluid Hazy (Clear); Color Pleural Fluid Yellow (Colorless); Nucleated Cell Pleural Fluid 216 /uL (0-1000); Pleural fluid source Pleural fluid
[2019-11-25 16:32] LABS: Lymphocytes Pleural Fluid 51 %; Macrophages Pleural Fluid 29 %; Mesothelial Cells Pleural Flui 12 %; Neutrophils Pleural Fluid 8 % (0-25); RBC Pleural Fluid 281 /uL (0-0)
[2019-11-25] MEDS: ALBUMIN HUMAN 25% 25 GM/100 ML 100 ML IVPB (17:28)
--- NOTE | 2019-11-25 19:55 | ECG_ITS ---
Measurements Intervals [place] Rate: 79 P: 2 NE: 200 QRS: 17 QRSD: 110 T: -12 QT: 405 QTc: 467 Interpretive Statements SINUS RHYTHM LOW QRS VOLTAGE IN PRECORDIAL LEADS BORDERLINE T WAVE ABNORMALITY- ANT/INF LEADS BASELINE ARTIFACT- III, V3-V4 BORDERLINE ECG Electronically Signed On 11-26-2019 7:58:46 CDT by Steven López D.O.
--- NOTE | 2019-11-25 22:51 | PM.EVENT ---
Event Note Event Note Event Note: Nursing staff called to report that the patient's pleural fluid Gram stain demonstrated many wbc's and moderate gram-positive cocci. Rocephin, azithromycin and vancomycin have been ordered to cover possible para pneumonic effusion. Patient's Rocephin has been dosed at 2 gram given his ascites to cover for possible SBP until the patient's peritoneal cultures come back.
[2019-11-26 05:48] LABS: Hematocrit 31.1 % (42.0-52.0); Hemoglobin 10.5 g/dL (14.0-18.0); Mean Corpuscular HGB Conc 33.8 g/dl (32-36); Mean Corpuscular Hemoglobin 35.1 pg (26-34); Mean Platelet Volume 12.3 fl (7.4-10.4); Platelet Count Result 82 k/mm3 (150-375); Red Blood Count 2.99 M/mm3 (4.6-6.20); Red Cell Distribution Width 14.2 % (11.5-14.5); White Blood Count 6.9 K/mm3 (4.5-10.0)
[2019-11-26 06:00] VITALS: BP 111/69; PULSE 64; RESP 16; TEMP 36.4; O2SAT 98
[2019-11-26 06:09] LABS: INR 2.1; Prothrombin Time 23.5 Seconds (11.1-14.7)
[2019-11-26 07:03] LABS: Alanine Aminotransferase 11 U/L (4-50); Albumin Level 2.1 g/dL (3.5-5.1); Alkaline Phosphatase 100 U/L (38-126); Aspartate Amino Transferase 26 U/L (17-59); Bilirubin,Total 1.1 mg/dL (0.2-1.3); Blood Urea Nitrogen 8 mg/dL (9-20); Calcium 7.7 mg/dL (8.4-10.2); Carbon Dioxide 29 mmol/L (22-30); Chloride 102 mmol/L (98-107); Estimated CRCL calculation 104 ml/min; Estimated Glomerular Filt Rate > 60; Glucose 76 mg/dL (75-110); Magnesium 1.7 mg/dL (1.6-2.3); Potassium 4.1 mmol/L (3.4-5.0); Sodium 135 mmol/L (137-145)
--- NOTE | 2019-11-26 07:56 | P.TS_ITS ---
Transfer Discharge Sum: Prov Provider Date of admission: 11/24/19 19:04 Primary care physician: Adiel Spencer MD Admitting clinician: Jerman Guo MD DS: Diagnosis Admitting Diagnosis Admitting Diagnosis: Pleural effusion, not elsewhere classified Discharge Diagnosis (1) Pleural effusion on right: Code(s): J90 - Pleural effusion, not elsewhere classified Status: Acute Assessment and Plan: * Moderate Sized Pleural effusion likely due to massive ascites and he will need therapeutic thoracentesis. * His INR was elevated and was given 1 Unit of FFP prior to thoracentesis. * Radiologist notes adjacent right basilar infiltrate and/or atelectasis. Pneumonia felt to be less likely by history; he is afebrile and has a normal white count. * Thoracentesis was completed 1000 mL of clear, tabatha colored fluid, with Gram Stain showing Many WBCs and Moderate Gram Positive Cocci. Concerns for possible Emphyema and the patient will need to be transferred to [facility] and he was accepted by Dr. Whitfield to the Medicine Floor. * The patient understands and agrees with the plan all questions answered about being transferred to [place]. (2) Ascites: Code(s): R18.8 - Other ascites Status: Chronic Assessment and Plan: * Continues to reaccumulate despite being compliant with furosemide and spironolactone at home which was doubled recently by his electrical technician. * Had appointment with electrical technician prior to arrival to the emergency department, which was canceled as they heard the patient cough. * Paracentesis was completed removing 4800 mLs of clear yellow fluid. * The patient abdomen is feeling better and less distended today after fluid was removed. * Venous Dopplers ordered for lower extremity edema which showed no DVT. * Will cautiously diurese with IV furosemide, IV albumin and continue spironolactone being mindful of his volume status prior to transfer to [place]. (3) Cirrhosis: Code(s): K74.60 - Unspecified cirrhosis of liver Status: Chronic Assessment and Plan: * Cautious diuresis in 2 gram sodium diet. * Monitor his bowel movements and fluid status. (4) Hypertrophic obstructive cardiomyopathy (HOCM): Code(s): I42.1 - Obstructive hypertrophic cardiomyopathy Status: Acute Assessment and Plan: * Will need to be mindful of volume status while diuresing. Transfer Discharge Sum: Med Medications Active and Home Medications: Home Medications pantoprazole [Protonix] 40 mg PO BID 28 Days #56 tablet 10/11/19 [Rx Confirmed 11/24/19] furosemide 20 mg PO DAILY 11/14/19 [History Confirmed 11/24/19] spironolactone 50 mg PO DAILY 11/14/19 [History Confirmed 11/24/19] Active Medications Furosemide (Lasix Inj) 20 mg IV PUSH BID [facility] Last Admin: 11/25/19 17:29 Dose: 20 mg Documented by: Albumin Human (Albutein) 100 mls @ 60 mls/hr IVPB BID@0830,1630 [facility] Last Infusion: 11/25/19 20:01 Dose: Infused Documented by: Ceftriaxone Sodium (Rocephin 2 Gm/D5w 100 Ml) 2 gm in 100 mls @ 200 mls/hr IVPB Q24H [facility] Vancomycin HCl (Vancomycin 1,250 Mg/D5w 250 Ml) 1,250 mg in 250 mls @ 200 mls/hr IVPB Q12H [facility] Last Infusion: 11/25/19 22:46 Dose: Infused Documented by: Azithromycin (Zithromax) 500 mg in 250 mls @ 250 mls/hr IVPB Q24H [facility] Last Infusion:
--- NOTE | 2019-11-26 07:56 | PM.TDS ---
Transfer Discharge Sum: Prov Provider Date of admission: 11/24/19 19:04 Primary care physician: Adiel Spencer MD Admitting clinician: Jerman Guo MD DS: Diagnosis Admitting Diagnosis Admitting Diagnosis: Pleural effusion, not elsewhere classified Discharge Diagnosis (1) Pleural effusion on right: Code(s): J90 - Pleural effusion, not elsewhere classified Status: Acute Assessment and Plan: Moderate Sized Pleural effusion likely due to massive ascites and he will need therapeutic thoracentesis. His INR was elevated and was given 1 Unit of FFP prior to thoracentesis. Radiologist notes adjacent right basilar infiltrate and/or atelectasis. Pneumonia felt to be less likely by history; he is afebrile and has a normal white count. Thoracentesis was completed 1000 mL of clear, tabatha colored fluid, with Gram Stain showing Many WBCs and Moderate Gram Positive Cocci. Concerns for possible Emphyema and the patient will need to be transferred to [facility] and he was accepted by Dr. Whitfield to the Medicine Floor. The patient understands and agrees with the plan all questions answered about being transferred to [place]. (2) Ascites: Code(s): R18.8 - Other ascites Status: Chronic Assessment and Plan: Continues to reaccumulate despite being compliant with furosemide and spironolactone at home which was doubled recently by his form tamper operator. Had appointment with form tamper operator prior to arrival to the emergency department, which was canceled as they heard the patient cough. Paracentesis was completed removing 4800 mLs of clear yellow fluid. The patient abdomen is feeling better and less distended today after fluid was removed. Venous Dopplers ordered for lower extremity edema which showed no DVT. Will cautiously diurese with IV furosemide, IV albumin and continue spironolactone being mindful of his volume status prior to transfer to [place]. (3) Cirrhosis: Code(s): K74.60 - Unspecified cirrhosis of liver Status: Chronic Assessment and Plan: Cautious diuresis in 2 gram sodium diet. Monitor his bowel movements and fluid status. (4) Hypertrophic obstructive cardiomyopathy (HOCM): Code(s): I42.1 - Obstructive hypertrophic cardiomyopathy Status: Acute Assessment and Plan: Will need to be mindful of volume status while diuresing. Transfer Discharge Sum: Med Medications Active and Home Medications: Home Medications pantoprazole [Protonix] 40 mg PO BID 28 Days #56 tablet 10/11/19 [Rx Confirmed 11/24/19] furosemide 20 mg PO DAILY 11/14/19 [History Confirmed 11/24/19] spironolactone 50 mg PO DAILY 11/14/19 [History Confirmed 11/24/19] Active Medications Furosemide (Lasix Inj) 20 mg IV PUSH BID [facility] Last Admin: 11/25/19 17:29 Dose: 20 mg Documented by: Albumin Human (Albutein) 100 mls @ 60 mls/hr IVPB BID@0830,1630 [facility] Last Infusion: 11/25/19 20:01 Dose: Infused Documented by: Ceftriaxone Sodium (Rocephin 2 Gm/D5w 100 Ml) 2 gm in 100 mls @ 200 mls/hr IVPB Q24H [facility] Vancomycin HCl (Vancomycin 1,250 Mg/D5w 250 Ml) 1,250 mg in 250 mls @ 200 mls/hr IVPB Q12H [facility] Last Infusion: 11/25/19 22:46 Dose: Infused Documented by: Azithromycin (Zithromax) 500 mg in 250 mls @ 250 mls/hr IVPB Q24H [facility] Last Infusion: 11/26/19 00:51 Dose: Infused Documented by: Pantoprazole Sodium (Protonix) 40 mg PO BID [facility] Last Admin: 11/25/19 17:35 Dose: 40 mg Documented by: Spironolactone (Aldactone) 50 mg PO DAILY [facility] Last Admin: 04/03/20 09:17 Dose: 50 mg Documented by: Transfer Discharge Sum: Hosp Hospital Course Hospital course: Bo Freedman is a 64 year old male with a history of liver cirrhosis and hypertrophic cardiomyopathy, who presented to th
[2019-11-26] MEDS: ALBUMIN HUMAN 25% 25 GM/100 ML 100 ML IVPB (08:24)
[2019-11-26] MEDS: PANTOPRAZOLE 40 MG TABLET PO (08:34)
[2019-11-26] MEDS: SPIRONOLACTONE 50 MG TABLET PO (08:34)
[2019-11-26] MEDS: FUROSEMIDE INJ 40 MG/4 ML VIAL 20 MG IV PUSH (10:42)
[2019-11-27 23:53] LABS: Glucose Pleural Fluid 120 mg/dL
[2019-11-28 00:21] LABS: LDH Pleural Fluid 60 U/L; Total Protein Pleural Fluid <3.0 g/dL
[2019-11-29 01:34] LABS: Amylase, Pleural Fluid 13 U/L
[2019-11-29 13:39] LABS: Albumin Pleural Fluid 0.6 g/dL
== END 2019-11-26 13:35 | disposition short-term general hospital (02) | DRG 137 ==
LOC: ANHED 19:09 → ANH2MED 19:55
PROVIDERS: Physician Assistant; Admitting Provider Internal Medicine; Emergency Provider Emergency Medicine; PCP Emergency Medicine; Visit Provider Physician Assistant
DX: J86.9 Pyothorax without fistula (principal); K70.31 Alcoholic cirrhosis of liver with ascites; J90 Pleural effusion, not elsewhere classified; I42.1 Obstructive hypertrophic cardiomyopathy; K76.6 Portal hypertension; Z87.891 Personal history of nicotine dependence; Z68.25 Body mass index [BMI] 25.0-25.9, adult; E46 Unspecified protein-calorie malnutrition; D69.6 Thrombocytopenia, unspecified; J45.909 Unspecified asthma, uncomplicated
CPT/HCPCS: 32555; 36415; 36430; 49083; 71046; 80053; 82042; 82150; 82465; 82945; 83615; 83735; 83880; 83986; 84100; 84157; 84311; 84478; 85025; 85027; 85055; 85610; 86900; 86901; 87040; 87070; 87075; 87205; 88104; 88108; 88184; 88305; 89051; 93005; 93970; 96374; 96375; 99285; A9270; J0456; J0696; J1940; J3370; J7050; P9017; P9047

== ENCOUNTER 2021-09-10 11:21 | Outpatient (CLI) | payer OTHER, SELFPAY ==
--- NOTE | ~2021-09-10 | XR_ITS ---
EXAMINATION: XR lumbar spine 2-3V DATE: 09/10/2021 12:02 INDICATION: Low back pain. TECHNIQUE: 3 views of lumbar spine were obtained. COMPARISON: Lumbar spine radiograph 03/22/2009, CT abdomen and pelvis 10/07/2019 FINDINGS: There is 5 degrees dextrocurvature of lumbar spine. Vertebral body heights are normal. Ther e is mildly decreased disc height at L1-L2. There are endplate osteophytes at all levels. There is mu ltilevel mild facet joint osteoarthritis. IMPRESSION: 1. Mild lumbar spondylosis. Reviewed, dictated and finalized at location A. ON SITE IMPRESSION: 1. Mild lumbar spondylosis.
[2021-09-10 12:34] LABS: Hematocrit 42.3 % (42.0-52.0); Hemoglobin 14.5 g/dL (14.0-18.0); Immature Platelet Fraction Pct 13.1 % (0.9-11.2); Mean Corpuscular HGB Conc 34.3 g/dl (32-36); Mean Corpuscular Hemoglobin 34.9 pg (26-34); Mean Corpuscular Volume 101.7 fl (80-100); Platelet Count Result 76 k/mm3 (150-375); Red Blood Count 4.16 M/mm3 (4.6-6.20); Red Cell Distribution Width 12.4 % (11.5-14.5); White Blood Count 5.7 K/mm3 (4.5-10.0)
[2021-09-10 12:48] LABS: Hemoglobin A1C 5.6 % (<5.7)
[2021-09-10 12:49] LABS: Alanine Aminotransferase 31 U/L (4-50); Albumin Level 3.8 g/dL (3.5-5.1); Alkaline Phosphatase 98 U/L (38-126); Anion Gap 11 mmol/L (8-16); Aspartate Amino Transferase 40 U/L (17-59); Bilirubin,Total 1.1 mg/dL (0.2-1.3); Blood Urea Nitrogen 9 mg/dL (9-20); Carbon Dioxide 25 mmol/L (22-30); Chloride 102 mmol/L (98-107); Cholesterol 161 mg/dL (0-200); Estimated Glomerular Filt Rate > 60; Glucose 170 mg/dL (65-110); HDL Direct 71 mg/dL; Potassium 4.1 mmol/L (3.4-5.0); Sodium 138 mmol/L (137-145); Triglycerides 75 mg/dL (<150)
[2021-09-10 13:01] LABS: LDL Cholesterol Direct 74 mg/dL
[2021-09-10 13:15] LABS: Creatinine Urine 229.5 mg/dL; Free T4 Free Thyroxine 1.06 ng/mL (0.78-2.19); Prostate Specific Antigen 0.1 ng/mL (< OR = 4.0); Vitamin D 25 Hydroxy 51.4 ng/mL
[2021-09-10 13:21] LABS: Microalbumin Urine Random 6.9 mg/L (0-16.7)
[2021-09-10 20:18] LABS: Add Urine Microscopic? NO; Appearance Urine Clear (Clear); Bilirubin Urine Negative (Negative); Blood Urine Negative (Negative); Color Urine Yellow (Yellow); Glucose Urine UA Negative (Negative); Ketones Urine Negative (Negative); Leukocyte Esterase Ur Negative LEU/UL (NEGATIVE); Nitrate Urine Negative (Negative); Protein Urine Negative (Negative); Specific Grav Ur 1.018 (1.001-1.035); Urobilinogen Urine Negative mg/dL (<2.0)
== END 2021-09-10 11:22 | disposition home or self-care (01) ==
PROVIDERS: PCP Emergency Medicine; Visit Provider Emergency Medicine
DX: Z00.00 Encounter for general adult medical examination without abnormal findings (principal); M47.816 Spondylosis without myelopathy or radiculopathy, lumbar region
CPT/HCPCS: 36415; 72100; 80053; 80061; 81003; 82043; 82306; 83036; 84153; 84439; 84443; 85027; 85055

== ENCOUNTER 2021-12-13 11:46 | Outpatient (CLI) | payer MEDICARE, MEDICAID, SELFPAY ==
[2021-12-13 12:12] LABS: Basophils Percent Auto 0.4 % (0.2-1.2); Eosinophils Percent Auto 0.6 % (0-4.4); Hemoglobin 14.4 g/dL (14.0-18.0); Immature Granulocyte Absolute 0.03 K/mm3 (0.00-0.031); Immature Granulocyte Percent A 0.4 % (0-0.5); Immature Platelet Fraction Pct 10.2 % (0.9-11.2); Lymphocytes Absolute Auto 0.85 K/mm3 (0.9-3.2); Lymphocytes Percent Auto 12.7 % (18.3-44.2); Mean Corpuscular HGB Conc 32.7 g/dl (32-36); Mean Corpuscular Hemoglobin 34.4 pg (26-34); Mean Platelet Volume 11.2 fl (7.4-10.4); Monocytes Absolute Auto 1.1 K/mm3 (0.1-0.6); Neutrophils Absolute Auto 4.7 K/mm3 (1.3-6.7); Neutrophils Percent Auto 69.9 % (45.5-73.1); Platelet Count Result 72 k/mm3 (150-375); Red Blood Count 4.19 M/mm3 (4.6-6.20); White Blood Count 6.7 K/mm3 (4.5-10.0)
[2021-12-13 14:21] LABS: Iron 107 ug/dL (49-181)
[2021-12-13 14:25] LABS: Alanine Aminotransferase 34 U/L (4-50); Albumin Level 4.2 g/dL (3.5-5.1); Alkaline Phosphatase 133 U/L (38-126); Anion Gap 9 mmol/L (8-16); Aspartate Amino Transferase 51 U/L (17-59); Bilirubin,Total 0.9 mg/dL (0.2-1.3); Blood Urea Nitrogen 8 mg/dL (9-20); Calcium 8.9 mg/dL (8.4-10.2); Carbon Dioxide 25 mmol/L (22-30); Chloride 103 mmol/L (98-107); Estimated Glomerular Filt Rate > 60; Glucose 112 mg/dL (65-110); Sodium 137 mmol/L (137-145)
[2021-12-13 14:37] LABS: Percent Iron Saturation 32 % (20-50)
== END 2021-12-13 11:47 | disposition home or self-care (01) ==
LOC: ANHLAB 11:49
PROVIDERS: PCP Emergency Medicine; Visit Provider Internal Medicine Hematology & Oncology
DX: D64.9 Anemia, unspecified (principal)
CPT/HCPCS: 36415; 80053; 82607; 82728; 82746; 83540; 83550; 85025; 85055

== ENCOUNTER 2023-03-27 23:46 | Inpatient (IN) | payer MEDICARE, MEDICAID, SELFPAY ==
--- NOTE | ~2023-03-27 | CT_ITS ---
EXAMINATION: CT lumbar spine wo con DATE: 03/28/2023 01:28 INDICATION: Bilateral foot pain. TECHNIQUE: Computed tomography (CT) of the lumbar spine was performed without intravenous contrast. A utomated exposure control and iterative reconstruction technique were employed. The dose-length produ ct was 927.24 mGy-cm. COMPARISON: Lumbar spine radiographs 09/10/21 FINDINGS: The liver demonstrates surface nodularity, consistent with cirrhosis. There is a 5.7 cm mil dly hyperdense mass in right hepatic lobe. The kidneys demonstrate medullary nephrocalcinosis bilater ally. Bone alignment is normal. There is mild chronic anterior wedging of T12 vertebral body. There i s mildly decreased disc height at L1-L2. There are bridging endplate osteophytes from L1 to at least T10, consistent with diffuse idiopathic skeletal hyperostosis. Osseous central spinal canal is develo pmentally small in lumbar spine. The following disc levels are specifically discussed: L1-L2: The disc is bulging. There is mild bilateral facet joint osteoarthritis. There is mild bilater al neural foraminal stenosis. There is mild central canal stenosis. L2-L3: The disc is bulging. There is mild bilateral facet joint osteoarthritis. There is mild bilater al neural foraminal stenosis. There is mild central canal stenosis. L3-L4: The disc is bulging. There is mild bilateral facet joint osteoarthritis. There is moderate rig ht and mild left neural foraminal stenosis. There is mild central canal stenosis. L4-L5: The disc is bulging. There is moderate bilateral facet joint osteoarthritis. There is moderate bilateral neural foraminal stenosis. There is severe central canal stenosis. L5-S1: The disc is bulging. There is moderate bilateral facet joint osteoarthritis. There is moderate bilateral neural foraminal stenosis. There is mild central canal stenosis. IMPRESSION: 1. 5.7 cm liver mass suspicious for hepatocellular carcinoma. Abdomen MRI without and with contrast i s recommended. 2. Cirrhosis of the liver. 3. Severe lumbar spondylosis. Reviewed, dictated and finalized at location E. IMPRESSION: 1. 5.7 cm liver mass suspicious for hepatocellular carcinoma. Abdomen MRI witho ut and with contrast is recommended. 2. Cirrhosis of the liver. 3. Severe lumbar spondylosis.
--- NOTE | ~2023-03-27 | XR_ITS ---
EXAMINATION: XR pelvis 1-2V DATE: 03/28/2023 01:41 INDICATION: Bilateral hip pain TECHNIQUE: An anteroposterior view of the pelvis was obtained. COMPARISON: CT abdomen and pelvis dated 10/07/2019 FINDINGS: Alignment is normal. No fracture or suspected osteonecrosis. Mild bilateral hip and sacroiliac osteoa rthritis. Several phleboliths in the pelvis. IMPRESSION: 1. Mild osteoarthritis at the bilateral hip and sacroiliac joints. No acute osseous abnormality. Reviewed, dictated and finalized at location A. IMPRESSION: 1. Mild osteoarthritis at the bilateral hip and sacroiliac joints. No acute oss eous abnormality.
[2023-03-27 23:51] VITALS: BP 126/92; PULSE 72; RESP 14; TEMP 36.4; O2SAT 99
[2023-03-28] VITALS (32 sets, daily range): BP systolic 107–142; BP diastolic 62–86; PULSE 49–78; RESP 10–20; TEMP 36.3–37.3; O2SAT 93–100; BMI 27.2
[2023-03-28 01:32] LABS: Basophils Percent Auto 0.6 % (0.2-1.2); Eosinophils Percent Auto 0.6 % (0-4.4); Hematocrit 31.5 % (42.0-52.0); Hemoglobin 10.5 g/dL (14.0-18.0); Immature Granulocyte Absolute 0.01 K/mm3 (0.00-0.031); Immature Granulocyte Percent A 0.2 % (0-0.5); Immature Platelet Fraction Pct 18.3 % (0.9-11.2); Lymphocytes Absolute Auto 1.15 K/mm3 (0.9-3.2); Lymphocytes Percent Auto 23.4 % (18.3-44.2); Mean Corpuscular HGB Conc 33.3 g/dl (32-36); Mean Corpuscular Hemoglobin 30.5 pg (26-34); Mean Corpuscular Volume 91.6 fl (80-100); Mean Platelet Volume 12.5 fl (7.4-10.4); Monocytes Absolute Auto 0.7 K/mm3 (0.1-0.6); Monocytes Percent Auto 14.9 % (2.6-8.5); Neutrophils Percent Auto 60.3 % (45.5-73.1); Platelet Count Result 48 k/mm3 (150-375); Red Blood Count 3.44 M/mm3 (4.6-6.20); Red Cell Distribution Width 15.4 % (11.5-14.5); White Blood Count 4.9 K/mm3 (4.5-10.0)
[2023-03-28 01:37] LABS: Alanine Aminotransferase 40 U/L (6-50); Albumin Level 3.4 g/dL (3.5-5.1); Alkaline Phosphatase 154 U/L (38-126); Anion Gap 10 mmol/L (8-16); Aspartate Amino Transferase 97 U/L (17-59); Bilirubin,Total 1.7 mg/dL (0.2-1.3); Blood Urea Nitrogen 5 mg/dL (9-20); Calcium 7.8 mg/dL (8.4-10.2); Carbon Dioxide 23 mmol/L (22-30); Chloride 98 mmol/L (98-107); Estimated CRCL calculation 87 ml/min; Estimated Glomerular Filt Rate > 60; Glucose 102 mg/dL (65-110); Sodium 131 mmol/L (137-145)
[2023-03-28] MEDS: ACETAMINOPHEN 325 MG TABLET 650 MG PO (01:39)
[2023-03-28] MEDS: GABAPENTIN 300 MG CAPSULE PO ×2 (01:39→17:06)
[2023-03-28 03:23] LABS: Folic Acid 12.6 ng/mL (2.76->20)
--- NOTE | 2023-03-28 05:01 | ED.GENADULT ---
HPI - General Adult General Chief complaint: Unspecified Stated complaint: bilat. leg pain Time Seen by Provider: 03/28/23 00:35 History of Present Illness HPI narrative: Patient with history of alcohol use disorder presents here with severe pain to bilateral feet, started about 2 days ago. He feels like they are coming from his hips and going down to his feet, he does not have pain anywhere in his legs but he does have severe pain to both feet, he cannot describe what kind of pain it is, he cannot state whether it is burning or throbbing or dull or sharp he just states that they hurt very badly and he cannot walk on them. Has not had symptoms like this before. Denies any back pain, numbness or tingling or weakness. Denies any recent injuries. Related Data Home Medications Medication Instructions Recorded Confirmed furosemide 20 mg tablet 20 mg PO DAILY 11/14/19 11/24/19 spironolactone 50 mg tablet 50 mg PO DAILY 11/14/19 11/24/19 Allergies Allergy/AdvReac Type Severity Reaction Status Date / Time No Known Allergies Allergy Mild Verified 11/24/19 15:49 Review of Systems Review of Systems: CONST: No fever. HEENT: No sore throat C/V: No chest pain RESP: No cough GI: No abdominal pain : No dysuria. M/S: Bilateral feet pain SKIN: No rash. NEURO: [No headache or focal numbness or weakness] PSYCH: [No depression] [facility] Past Medical History Medical History (Updated 03/28/23 @ 07:22 by Dina Wilson MD) Asthma Cirrhosis EGD September [address] Bush showed no esophageal varices. Esophageal hernia Hypertrophic obstructive cardiomyopathy (HOCM) Echocardiogram on 10/08/2019 showed hyperdynamic left ventricular systolic function with ejection fraction estimated > 70%, moderate symmetric septal increased left ventricular wall thickness, chordal systolic anterior motion seen with modest 16 millimeters LVOT gradient, all findings consistent with hypertrophic cardiomyopathy with mild LVOT gradient. Portal venous hypertension Surgical History Surgical History No significant past surgical history Family History Family History Unknown Family history unknown Father Acute myocardial infarction Sibling Diabetes mellitus Social History Social History (Updated 11/24/19 @ 22:32 by eKllie Oseguera PA-C) Social History: The patient lives in [place]. He is , and has 1 adopted child. 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 His daughter, Shayy, is his surrogate decision maker and he wishes to be a full code. He smoked about 0.5 to 1 pack of cigarettes per day and quit about 5 years ago.He smoked cigars for short period time. He denies ever being a heavy drinker, and says he has not drank much for several years. Denies drug use. Smoking packs per day: 1 Smoking cigarettes per day: 20.0 Years smoked: 37 Smoking pack-years: 37.00 Smoking end date: 08/24/14 Alcohol intake: former Living arrangements: alone Occupation/Education: retired Additional occupation/education comments: Spiritual care concerns: No Agree to blood products: Yes Exam Narrative: EXAMINATION OF ORGAN SYSTEMS/BODY AREAS: Constitutional: Vital signs per nursing GENERAL: Resting comfortably in bed HEAD: Normal with no signs of head trauma. EYES: EOMI, conjunctiva normal ENT: Hearing grossly intact LUNGS: Nonlabored breathing. HEART: [Regular rate and rhythm] ABD: [Soft], [nontender to palpation] EXT: Normal range of motion. However when patient tries to get to his feet he immediately starts yelling out in pain and cannot bear weight well SKIN: [No rashes or lesions noted to feet.] NEURO: [Alert and oriented x 3. No gross focal sensory or strength deficits.] PSYCH: Normal affect Course Vital Signs Vital signs: Vital Signs Temperature 97.6 F 03/27/23 23:51 Pulse Rate 72
[2023-03-28] MEDS: POTASSIUM CHLORIDE 20 MEQ PACKET (FOR LIQUID) 40 MEQ PO (05:45)
[2023-03-28] MEDS: MAGNESIUM SULF 2 GM/WATER 50ML 2 GM/50 ML BAG IVPB (05:45)
[2023-03-28 06:41] LABS: Rapid Plasma Reagin Non-Reactive (NonReactive)
--- NOTE | 2023-03-28 07:12 | ECG_ITS ---
Measurements Intervals [place] Rate: 52 P: 29 VT: 262 QRS: 34 QRSD: 119 T: 7 QT: 480 QTc: 449 Interpretive Statements SINUS BRADYCARDIA WITH FIRST DEGREE AV BLOCK SINUS BRADYCARDIA NOW PRESENT FIRST DEGREE AV BLOCK NOW PRESENT Electronically Signed On 03-28-2023 9:28:00 CDT by Parul Monae M.D.
--- NOTE | 2023-03-28 10:55 | ADMGEN ---
This patient, Bo Freedman, was admitted to 3 [facility] Surg Room 315-02. Patient/family oriented to hospital policies and general routines including ID bracelet, bed and alarms, visiting hours, pain management, procedures, bathroom and other care routines, personal items, smoking policy, room service/diet, and visiting hours. Information on how to activate the Rapid Response Team has been discussed. Patient/Family are encouraged to report perceived risks to care and to ask questions if they do not understand what they are told or what they should do.
--- NOTE | 2023-03-28 15:09 | PM.IMHP ---
H&P: HPI History of Present Illness Date/Time: 03/28/23 15:09 Chief Complaint: B/L leg pain Narrative: HPI narrative: Patient with history of alcohol use disorder presents here with severe pain to bilateral feet, started about 2 days ago.? He feels like they are coming from his hips and going down to his feet, he does not have pain anywhere in his legs but he does have severe pain to both feet, he cannot describe what kind of pain it is, he cannot state whether it is burning or throbbing or dull or sharp he just states that they hurt very badly and he cannot walk on them.? Has not had symptoms like this before.? Denies any back pain, numbness or tingling or weakness.? Denies any recent injuries. patient with history daily alcohol consumption presented with c/o B/L lower extremities pain and diffulty with ambulation, patient has visible tremors, appears chronically ill, patient has history of liver cirrhoisis and seen by hepatalogist at [facility], CT scan of abdomen and lumbar spine showed severe lumbar spondylosis probably cause of his lowever extremities pain, will start patient on gabapentine, also the scan showed patient has 5.7 cm liver mass suspicious of hepatocelluar carcinoma, I spoke with patient daughter and informed her about the mass and needs to follow up with his utility bill complaints investigator as soon as possible, will monitor and have PT/OT evaluate the patient. Patient admitted as observation status Review of Systems Review of Systems: CONST: No fever. HEENT: No sore throat C/V: No chest pain RESP: No cough GI: No abdominal pain : No dysuria. M/S: Bilateral feet pain SKIN: No rash. NEURO: [No headache or focal numbness or weakness] PSYCH: [No depression] [facility] Past Medical History Medical History (Updated 03/28/23 @ 07:22 by Dina Wilson MD) Asthma Cirrhosis EGD September [address] Bush showed no esophageal varices. Esophageal hernia Hypertrophic obstructive cardiomyopathy (HOCM) Echocardiogram on 10/08/2019 showed hyperdynamic left ventricular systolic function with ejection fraction estimated > 70%, moderate symmetric septal increased left ventricular wall thickness, chordal systolic anterior motion seen with modest 16 millimeters LVOT gradient, all findings consistent with hypertrophic cardiomyopathy with mild LVOT gradient. Portal venous hypertension Surgical History Surgical History No significant past surgical history Family History Family History Unknown Family history unknown Father Acute myocardial infarction Sibling Diabetes mellitus Social History Social History (Updated 11/24/19 @ 22:32 by Kellie Oseguera PA-C) Social History: The patient lives in [place]. He is , and has 1 adopted child. 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 His daughter, Shayy, is his surrogate decision maker and he wishes to be a full code. He smoked about 0.5 to 1 pack of cigarettes per day and quit about 5 years ago.He smoked cigars for short period time. He denies ever being a heavy drinker, and says he has not drank much for several years. Denies drug use. Smoking packs per day: 1 Smoking cigarettes per day: 20.0 Years smoked: 37 Smoking pack-years: 37.00 Smoking status: Unknown if ever smoked Smoking end date: 08/24/14 Alcohol intake: unknown Substance use: unknown Living arrangements: alone Occupation/Education: retired Additional occupation/education comments: Spiritual care concerns: No Agree to blood products: Yes Meds Home Medications and Allergies Home Medications Medication Instructions Recorded Confirmed Type pantoprazole 40 mg tablet,delayed 40 mg PO BID 4 weeks #56 tabs 10/11/19 03/28/23 Rx release (Protonix) furosemide 20 mg tablet 20 mg PO DAILY 11/14/19 03/28/23 History spironolactone 50 mg tablet 50 mg PO DAILY 11/14/19 03/28/23 His
[2023-03-28] MEDS: chlordiazePOXIDE (*CRX) 25 MG CAPSULE PO (17:06)
[2023-03-28] MEDS: LACTULOSE 20 GM/30 ML UDC PO (17:06)
[2023-03-29 05:51] VITALS: BP 150/76; PULSE 65; RESP 20; TEMP 37.1; O2SAT 99
[2023-03-29 06:23] LABS: Hematocrit 31.7 % (42.0-52.0); Hemoglobin 10.5 g/dL (14.0-18.0); Immature Platelet Fraction Pct 15.4 % (0.9-11.2); Mean Corpuscular HGB Conc 33.1 g/dl (32-36); Mean Corpuscular Hemoglobin 30.7 pg (26-34); Mean Corpuscular Volume 92.7 fl (80-100); Mean Platelet Volume 12.2 fl (7.4-10.4); Platelet Count Result 34 k/mm3 (150-375); Red Blood Count 3.42 M/mm3 (4.6-6.20); Red Cell Distribution Width 15.5 % (11.5-14.5)
[2023-03-29 06:36] LABS: Alanine Aminotransferase 39 U/L (6-50); Alkaline Phosphatase 158 U/L (38-126); Anion Gap 3 mmol/L (8-16); Aspartate Amino Transferase 95 U/L (17-59); Bilirubin,Total 2.5 mg/dL (0.2-1.3); Blood Urea Nitrogen 5 mg/dL (9-20); Calcium 7.8 mg/dL (8.4-10.2); Carbon Dioxide 28 mmol/L (22-30); Chloride 102 mmol/L (98-107); Estimated CRCL calculation 100 ml/min; Estimated Glomerular Filt Rate > 60; Glucose 104 mg/dL (65-110); Magnesium 2.1 mg/dL (1.6-2.3); Potassium 3.6 mmol/L (3.4-5.0); Sodium 133 mmol/L (137-145)
[2023-03-29 06:39] LABS: Ammonia < 9 umol/L (9-30)
[2023-03-29] MEDS: LACTULOSE 20 GM/30 ML UDC PO ×2 (09:17→16:06)
[2023-03-29] MEDS: chlordiazePOXIDE (*CRX) 25 MG CAPSULE PO ×3 (09:17→20:37)
[2023-03-29] MEDS: FUROSEMIDE 20 MG TABLET PO (09:17)
[2023-03-29] MEDS: GABAPENTIN 300 MG CAPSULE PO ×3 (09:18→16:06)
[2023-03-29] MEDS: SPIRONOLACTONE 50 MG TABLET PO (09:18)
[2023-03-29 09:25] VITALS: O2SAT 99
--- NOTE | 2023-03-29 11:15 | WPDPN ---
Progress Note: A&P Assessment and Plan (1) Bilateral foot pain: Code(s): M79.671 - Pain in right foot; M79.672 - Pain in left foot Status: Acute Assessment and Plan: HPI narrative: Patient with history of alcohol use disorder presents here with severe pain to bilateral feet, started about 2 days ago.? He feels like they are coming from his hips and going down to his feet, he does not have pain anywhere in his legs but he does have severe pain to both feet, he cannot describe what kind of pain it is, he cannot state whether it is burning or throbbing or dull or sharp he just states that they hurt very badly and he cannot walk on them.? Has not had symptoms like this before.? Denies any back pain, numbness or tingling or weakness.? Denies any recent injuries. patient with history daily alcohol consumption presented with c/o B/L lower extremities pain and diffulty with ambulation, patient has visible tremors, appears chronically ill, patient has history of liver cirrhoisis and seen by hepatalogist at [facility], CT scan of abdomen and lumbar spine showed severe lumbar spondylosis probably cause of his lowever extremities pain, will start patient on gabapentine, also the scan showed patient has 5.7 cm liver mass suspicious of hepatocelluar carcinoma, I spoke with patient daughter and informed her about the mass and needs to follow up with his foreign food specialty cook as soon as possible, will monitor and have PT/OT evaluate the patient. 03/29/2023 interval history: today patient stats he is feeling better and pain in his legs have improved, he was able to walk to the comod, will CPM, will monitor with CIWA protocol, will have PT/OT work with the patient. (2) Inability to ambulate due to ankle or foot: Code(s): R26.2 - Difficulty in walking, not elsewhere classified Status: Acute Assessment and Plan: Most likely secondary to severe lumbar spondylosis, will start the patient on gabapentin and have a PT OT evaluate the patient. (3) HCC (hepatocellular carcinoma): Code(s): C22.0 - Liver cell carcinoma Status: Acute Plan Patient does have a history of liver cirrhosis however liver mass is new diagnosis I have informed the patient daughter to follow-up with his foreign food specialty cook as soon as possible. Subjective Date/time seen: 03/29/23 11:15 Interval history: HPI narrative: Patient with history of alcohol use disorder presents here with severe pain to bilateral feet, started about 2 days ago.? He feels like they are coming from his hips and going down to his feet, he does not have pain anywhere in his legs but he does have severe pain to both feet, he cannot describe what kind of pain it is, he cannot state whether it is burning or throbbing or dull or sharp he just states that they hurt very badly and he cannot walk on them.? Has not had symptoms like this before.? Denies any back pain, numbness or tingling or weakness.? Denies any recent injuries. patient with history daily alcohol consumption presented with c/o B/L lower extremities pain and diffulty with ambulation, patient has visible tremors, appears chronically ill, patient has history of liver cirrhoisis and seen by hepatalogist at [facility], CT scan of abdomen and lumbar spine showed severe lumbar spondylosis probably cause of his lowever extremities pain, will start patient on gabapentine, also the scan showed patient has 5.7 cm liver mass suspicious of hepatocelluar carcinoma, I spoke with patient daughter and informed her about the mass and needs to follow up with his foreign food specialty cook as soon as possible, will monitor and have PT/OT evaluate the patient. 03/29/2023 interval history: today patient stats he is feeling better and pain in his legs have improved, he was able to walk to the comod, will CPM, will monitor with CIWA protocol, will have PT/OT work with the patient. Review of Systems Review of Systems: CONST: No fever. HEENT: No sore throat C/V: No
[2023-03-29 14:00] VITALS: BP 129/67; PULSE 71; RESP 14; TEMP 36.9; O2SAT 100
[2023-03-29 22:00] VITALS: BP 152/76; PULSE 81; RESP 17; TEMP 36.4; O2SAT 100
[2023-03-30 05:56] VITALS: BP 129/77; PULSE 66; RESP 18; TEMP 36.2; O2SAT 100
[2023-03-30 06:35] LABS: Hematocrit 32.4 % (42.0-52.0); Hemoglobin 10.5 g/dL (14.0-18.0); Immature Platelet Fraction Pct 21.4 % (0.9-11.2); Mean Corpuscular HGB Conc 32.4 g/dl (32-36); Mean Corpuscular Hemoglobin 30.3 pg (26-34); Mean Corpuscular Volume 93.4 fl (80-100); Platelet Count Result 39 k/mm3 (150-375); Red Blood Count 3.47 M/mm3 (4.6-6.20); Red Cell Distribution Width 15.6 % (11.5-14.5); White Blood Count 5.2 K/mm3 (4.5-10.0)
[2023-03-30 06:43] LABS: Alanine Aminotransferase 43 U/L (6-50); Alkaline Phosphatase 152 U/L (38-126); Anion Gap 3 mmol/L (8-16); Aspartate Amino Transferase 109 U/L (17-59); Bilirubin,Total 2.7 mg/dL (0.2-1.3); Blood Urea Nitrogen 6 mg/dL (9-20); Carbon Dioxide 29 mmol/L (22-30); Chloride 103 mmol/L (98-107); Estimated CRCL calculation 100 ml/min; Estimated Glomerular Filt Rate > 60; Glucose 110 mg/dL (65-110); Magnesium 1.9 mg/dL (1.6-2.3); Potassium 3.4 mmol/L (3.4-5.0); Sodium 135 mmol/L (137-145)
[2023-03-30] MEDS: GABAPENTIN 300 MG CAPSULE PO ×3 (09:04→17:18)
[2023-03-30] MEDS: FUROSEMIDE 20 MG TABLET PO (09:04)
[2023-03-30] MEDS: LACTULOSE 20 GM/30 ML UDC PO ×2 (09:05→17:18)
[2023-03-30] MEDS: FOLIC ACID 1 MG TABLET PO (09:05)
[2023-03-30] MEDS: THIAMINE HCL 100 MG TABLET PO (09:05)
[2023-03-30] MEDS: SPIRONOLACTONE 50 MG TABLET PO (09:05)
[2023-03-30] MEDS: POTASSIUM CHLORIDE 20 MEQ ER TABLET 40 MEQ PO (12:06)
--- NOTE | 2023-03-30 12:43 | WPDPN ---
Progress Note: A&P Assessment and Plan (1) Bilateral foot pain: Code(s): M79.671 - Pain in right foot; M79.672 - Pain in left foot Status: Acute Assessment and Plan: HPI narrative: Patient with history of alcohol use disorder presents here with severe pain to bilateral feet, started about 2 days ago.? He feels like they are coming from his hips and going down to his feet, he does not have pain anywhere in his legs but he does have severe pain to both feet, he cannot describe what kind of pain it is, he cannot state whether it is burning or throbbing or dull or sharp he just states that they hurt very badly and he cannot walk on them.? Has not had symptoms like this before.? Denies any back pain, numbness or tingling or weakness.? Denies any recent injuries. patient with history daily alcohol consumption presented with c/o B/L lower extremities pain and diffulty with ambulation, patient has visible tremors, appears chronically ill, patient has history of liver cirrhoisis and seen by hepatalogist at [facility], CT scan of abdomen and lumbar spine showed severe lumbar spondylosis probably cause of his lowever extremities pain, will start patient on gabapentine, also the scan showed patient has 5.7 cm liver mass suspicious of hepatocelluar carcinoma, I spoke with patient daughter and informed her about the mass and needs to follow up with his swahili teacher as soon as possible, will monitor and have PT/OT evaluate the patient. 03/30/2023 interval history: today patient stats he is feeling better and pain in his legs has improved, he was able to walk to the bathroom witout any assistance, patient still has tremors, will CPM, will monitor with CIWA protocol, will have PT/OT work with the patient. (2) Inability to ambulate due to ankle or foot: Code(s): R26.2 - Difficulty in walking, not elsewhere classified Status: Acute Assessment and Plan: Most likely secondary to severe lumbar spondylosis, will start the patient on gabapentin and have a PT OT evaluate the patient. (3) HCC (hepatocellular carcinoma): Code(s): C22.0 - Liver cell carcinoma Status: Acute Plan Patient does have a history of liver cirrhosis however liver mass is new diagnosis I have informed the patient daughter to follow-up with his swahili teacher as soon as possible. Subjective Date/time seen: 03/30/23 12:43 Interval history: HPI narrative: Patient with history of alcohol use disorder presents here with severe pain to bilateral feet, started about 2 days ago.? He feels like they are coming from his hips and going down to his feet, he does not have pain anywhere in his legs but he does have severe pain to both feet, he cannot describe what kind of pain it is, he cannot state whether it is burning or throbbing or dull or sharp he just states that they hurt very badly and he cannot walk on them.? Has not had symptoms like this before.? Denies any back pain, numbness or tingling or weakness.? Denies any recent injuries. patient with history daily alcohol consumption presented with c/o B/L lower extremities pain and diffulty with ambulation, patient has visible tremors, appears chronically ill, patient has history of liver cirrhoisis and seen by hepatalogist at [facility], CT scan of abdomen and lumbar spine showed severe lumbar spondylosis probably cause of his lowever extremities pain, will start patient on gabapentine, also the scan showed patient has 5.7 cm liver mass suspicious of hepatocelluar carcinoma, I spoke with patient daughter and informed her about the mass and needs to follow up with his swahili teacher as soon as possible, will monitor and have PT/OT evaluate the patient. 03/30/2023 interval history: today patient stats he is feeling better and pain in his legs has improved, he was able to walk to the bathroom witout any assistance, patient still has tremors, will CPM, will monitor with CIWA protocol, will have PT/OT work with the
[2023-03-30 13:09] VITALS: BP 133/83; PULSE 68; RESP 18; TEMP 36.4; O2SAT 100
[2023-03-30 21:56] VITALS: BP 127/63; PULSE 65; RESP 18; TEMP 37.1; O2SAT 100
[2023-03-31 06:00] VITALS: BP 129/77; PULSE 55; RESP 18; TEMP 36.9; O2SAT 100
[2023-03-31 07:25] LABS: Hematocrit 35.7 % (42.0-52.0); Hemoglobin 11.5 g/dL (14.0-18.0); Immature Platelet Fraction Pct 24.9 % (0.9-11.2); Mean Corpuscular HGB Conc 32.2 g/dl (32-36); Mean Corpuscular Hemoglobin 30.2 pg (26-34); Mean Corpuscular Volume 93.7 fl (80-100); Mean Platelet Volume 14.7 fl (7.4-10.4); Platelet Count Result 48 k/mm3 (150-375); Red Blood Count 3.81 M/mm3 (4.6-6.20); Red Cell Distribution Width 15.9 % (11.5-14.5)
[2023-03-31 07:28] LABS: Alanine Aminotransferase 48 U/L (6-50); Albumin Level 3.4 g/dL (3.5-5.1); Alkaline Phosphatase 174 U/L (38-126); Anion Gap 6 mmol/L (8-16); Aspartate Amino Transferase 103 U/L (17-59); Bilirubin,Total 3.1 mg/dL (0.2-1.3); Blood Urea Nitrogen 8 mg/dL (9-20); Calcium 8.5 mg/dL (8.4-10.2); Carbon Dioxide 27 mmol/L (22-30); Chloride 102 mmol/L (98-107); Estimated CRCL calculation 100 ml/min; Estimated Glomerular Filt Rate > 60; Glucose 102 mg/dL (65-110); Magnesium 1.9 mg/dL (1.6-2.3); Potassium 3.3 mmol/L (3.4-5.0); Sodium 135 mmol/L (137-145)
--- NOTE | 2023-03-31 09:02 | PM.DS ---
DS: Admitting Diagnosis Discharge Date 03/31/2023 Admitting Diagnosis B/L leg pain DS: Discharge Diagnosis Discharge Diagnosis (1) Bilateral foot pain: Code(s): M79.671 - Pain in right foot; M79.672 - Pain in left foot Status: Acute Assessment and Plan: HPI narrative: Patient with history of alcohol use disorder presents here with severe pain to bilateral feet, started about 2 days ago.? He feels like they are coming from his hips and going down to his feet, he does not have pain anywhere in his legs but he does have severe pain to both feet, he cannot describe what kind of pain it is, he cannot state whether it is burning or throbbing or dull or sharp he just states that they hurt very badly and he cannot walk on them.? Has not had symptoms like this before.? Denies any back pain, numbness or tingling or weakness.? Denies any recent injuries. patient with history daily alcohol consumption presented with c/o B/L lower extremities pain and diffulty with ambulation, patient has visible tremors, appears chronically ill, patient has history of liver cirrhoisis and seen by hepatalogist at [facility], CT scan of abdomen and lumbar spine showed severe lumbar spondylosis probably cause of his lowever extremities pain, will start patient on gabapentine, also the scan showed patient has 5.7 cm liver mass suspicious of hepatocelluar carcinoma, I spoke with patient daughter and informed her about the mass and needs to follow up with his bench assembler electrical as soon as possible, will monitor and have PT/OT evaluate the patient. 03/30/2023 interval history: today patient stats he is feeling better and pain in his legs has improved, he was able to walk to the bathroom witout any assistance, patient still has tremors, will CPM, will monitor with CIWA protocol, will have PT/OT work with the patient. (2) Inability to ambulate due to ankle or foot: Code(s): R26.2 - Difficulty in walking, not elsewhere classified Status: Acute Assessment and Plan: Most likely secondary to severe lumbar spondylosis, will start the patient on gabapentin and have a PT OT evaluate the patient. (3) HCC (hepatocellular carcinoma): Code(s): C22.0 - Liver cell carcinoma Status: Acute Plan Patient does have a history of liver cirrhosis however liver mass is new diagnosis I have informed the patient daughter to follow-up with his bench assembler electrical as soon as possible. DS: Summary Hospital Course Reason for hospitalization: B/L leg pain Narrative: HPI narrative: Patient with history of alcohol use disorder presents here with severe pain to bilateral feet, started about 2 days ago.? He feels like they are coming from his hips and going down to his feet, he does not have pain anywhere in his legs but he does have severe pain to both feet, he cannot describe what kind of pain it is, he cannot state whether it is burning or throbbing or dull or sharp he just states that they hurt very badly and he cannot walk on them.? Has not had symptoms like this before.? Denies any back pain, numbness or tingling or weakness.? Denies any recent injuries. patient with history daily alcohol consumption presented with c/o B/L lower extremities pain and diffulty with ambulation, patient has visible tremors, appears chronically ill, patient has history of liver cirrhoisis and seen by hepatalogist at [facility], CT scan of abdomen and lumbar spine showed severe lumbar spondylosis probably cause of his lowever extremities pain, will start patient on gabapentine, also the scan showed patient has 5.7 cm liver mass suspicious of hepatocelluar carcinoma,? I spoke with patient daughter and informed her about the mass and needs to follow up with his bench assembler electrical as soon as possible, will monitor and have PT/OT evaluate the patient. Hospital Course: ?today patient stats he is feeling better and pain in his legs has improved, he was able to walk to the bathroom without any assistance,
[2023-03-31] MEDS: FOLIC ACID 1 MG TABLET PO (09:13)
[2023-03-31] MEDS: THIAMINE HCL 100 MG TABLET PO (09:13)
[2023-03-31] MEDS: GABAPENTIN 300 MG CAPSULE PO (09:13)
[2023-03-31] MEDS: SPIRONOLACTONE 50 MG TABLET PO (09:13)
[2023-03-31] MEDS: FUROSEMIDE 20 MG TABLET PO (09:13)
[2023-03-31] MEDS: POTASSIUM CHLORIDE 20 MEQ ER TABLET 40 MEQ PO (09:13)
[2023-03-31] MEDS: LACTULOSE 20 GM/30 ML UDC PO (09:14)
[2023-03-31 09:15] VITALS: PULSE 90; O2SAT 96
== END 2023-03-31 10:25 | disposition home or self-care (01) | DRG 552 ==
LOC: ANHED 03-28 07:22 → ANH3MEDSUR 03-28 08:21
PROVIDERS: Admitting Provider Student in an Organized Health Care Education/Training Program; Emergency Provider Emergency Medicine; PCP Emergency Medicine; Visit Provider Family Medicine
DX: M47.816 Spondylosis without myelopathy or radiculopathy, lumbar region (principal); I42.1 Obstructive hypertrophic cardiomyopathy; K76.6 Portal hypertension; C22.0 Liver cell carcinoma; M79.671 Pain in right foot; M79.672 Pain in left foot; J45.909 Unspecified asthma, uncomplicated; K74.60 Unspecified cirrhosis of liver; R26.2 Difficulty in walking, not elsewhere classified; F10.90 Alcohol use, unspecified, uncomplicated
CPT/HCPCS: 36415; 72131; 72170; 80053; 82140; 82607; 82746; 83735; 85025; 85027; 85055; 86592; 93005; 96365; 97161; 97165; 99285; A9270; J3475

== ENCOUNTER → 2023-06-19 09:30 | Outpatient (REF) | payer OTHER, MEDICAID, SELFPAY ==
--- NOTE | ~2023-06-19 | US_ITS ---
EXAMINATION: US paracentesis abd w/image DATE: 06/19/2023 11:19 INDICATION: Ascites. TECHNIQUE: The procedure and its risks and benefits were discussed with the patient. Potential risks discussed included bleeding and infection. The skin was prepped and draped in sterile fashion. 1% lid ocaine was used for local anesthesia. Under ultrasound guidance, a 5 Fr catheter with trochar was adv anced into the ascites in the right lower quadrant. Fluid was aspirated into vacuum bottles. The cath eter was removed, and a dressing was applied. There were no immediate complications. FINDINGS: Ultrasound images demonstrate ascites and the catheter within the fluid. IMPRESSION: 1. Successful ultrasound-guided paracentesis yielding 3200 mL of clear dark reddish fluid. Reviewed, dictated and finalized at location A. IMPRESSION: 1. Successful ultrasound-guided paracentesis yielding 3200 mL of clear dark re ddish fluid.
== END ==
LOC: ANHIMG 09:30
PROVIDERS: PCP Family Medicine Adolescent Medicine; Visit Provider Nurse Practitioner Family
DX: R14.0 Abdominal distension (gaseous) (principal)
CPT/HCPCS: 49083

== ENCOUNTER 2024-03-12 18:21 | Inpatient (IN) | payer MEDICARE, SELFPAY ==
[2024-03-12] VITALS (9 sets, daily range): BP systolic 82–112; BP diastolic 42–65; PULSE 94–113; RESP 17–20; TEMP 37.1; O2SAT 97–100; BMI 23.4
--- NOTE | ~2024-03-12 | XR_ITS ---
EXAMINATION: XR chest 1V portable DATE: 03/12/2024 19:36 INDICATION: Shortness of breath TECHNIQUE: frontal view of the chest was obtained. COMPARISON: Chest radiograph dated 11/25/2019 FINDINGS: Decreased bilateral lung volumes. There are interstitial opacities in bilateral mid and lower lung zo bri. There . Be additional airspace opacity posterior to the right hemidiaphragm. No pleural effusion or pneumothorax. The cardiomediastinal silhouette is within normal limits for AP technique. Chronic calcified nodule at the right axilla. Cervicothoracic posterior spinal fusion with partially visualiz ed bilateral vertical santhosh and pedicle screw fixation at T12 which extends cephalad beyond the superio r margin of the [id number]. IMPRESSION: 1. Significantly decreased lung volumes with increased interstitial opacities in the bilateral mid to lower lungs and airspace opacities in the right lower lung. Differential would include atelectasis, mild pulmonary edema, pneumonia or some combination thereof. Reviewed, dictated and finalized at location A. IMPRESSION: 1. Significantly decreased lung volumes with increased interstitial opacities i n the bilateral mid to lower lungs and airspace opacities in the right lower kristofer ng. Differential would include atelectasis, mild pulmonary edema, pneumonia or some combination thereof.
--- NOTE | ~2024-03-12 | XR_ITS ---
EXAMINATION: XR chest 1V portable DATE: 03/24/2024 14:55 INDICATION: Cough. Tachycardia. TECHNIQUE: A single frontal view of the chest was obtained. COMPARISON: Chest single view 03/19/2024, 03/12/2024 FINDINGS: The lung volumes are small. There are interstitial opacities in the mid and lower lung zone s. No pleural effusion or pneumothorax. The heart size is normal. There are changes of posterior fusi on procedure in cervical spine. IMPRESSION: 1. Small lung volumes with stable interstitial opacities in the mid and lower lung zones, consistent with mild atelectasis versus mild pulmonary edema. Reviewed, dictated and finalized at location A. IMPRESSION: 1. Small lung volumes with stable interstitial opacities in the mid and lower l moustapha zones, consistent with mild atelectasis versus mild pulmonary edema.
--- NOTE | ~2024-03-12 | US_ITS ---
EXAMINATION: US paracentesis abd w/image DATE: 03/24/2024 17:30 INDICATION: Ascites. TECHNIQUE: The procedure and its risks, benefits, and alternatives were discussed with the patient's daughter. Potential risks discussed included bleeding and infection. The skin was prepped and draped in sterile fashion. 1% lidocaine was used for local anesthesia. Under ultrasound guidance, a 5 Fr cat heter with trochar was advanced into the ascites in the left lower quadrant. Fluid was aspirated. The catheter was removed, and a dressing was applied. There were no immediate complications. FINDINGS: Ultrasound images demonstrate ascites and the catheter within the fluid. IMPRESSION: 1. Successful ultrasound-guided paracentesis yielding 5000 mL of yellow fluid. Reviewed, dictated and finalized at location A.
--- NOTE | ~2024-03-12 | US_ITS ---
EXAMINATION: US paracentesis abd w/image DATE: 03/14/2024 14:42 INDICATION: Ascites. TECHNIQUE: The procedure and its risks and benefits were discussed with the patient. Potential risks discussed included bleeding and infection. The skin was prepped and draped in sterile fashion. 1% lid ocaine was used for local anesthesia. Under ultrasound guidance, a 5 Fr catheter with trochar was adv anced into the ascites in the left lower quadrant. Fluid was aspirated into vacuum bottles. The bhumika ter was removed, and a dressing was applied. There were no immediate complications. FINDINGS: Ultrasound images demonstrate ascites and the catheter within the fluid. IMPRESSION: 1. Successful ultrasound-guided paracentesis yielding 5000 mL of tabatha-colored fluid. Reviewed, dictated and finalized at location A.
--- NOTE | ~2024-03-12 | CT_ITS ---
EXAMINATION: CT brain wo con DATE: 03/14/2024 14:31 INDICATION: confusion . TECHNIQUE: Computed tomography (CT) of the head was performed without intravenous contrast. The mA wa s adjusted according to patient size. Iterative reconstruction technique was employed. The dose-lengt h product was 605.33 mGy-cm. COMPARISON: None. FINDINGS: No acute intracranial hemorrhage or extra-axial fluid collection. No hydrocephalus, mass, or herniation. No acute ischemic infarct. Unremarkable dural venous sinus attenuation. No acute osseous abnormality. Fluid fills the left mastoid air cells and middle ear compartment, the remaining aerated spaces are c lear. No mastoid erosions detected. Moderate atrophy and chronic white matter change. Atherosclerotic intracranial calcification. Partial ly visualized cervical fusion hardware. IMPRESSION: No acute intracranial process. Possible left otomastoiditis. Reviewed, dictated and finalized at location K.
--- NOTE | ~2024-03-12 | XR_ITS ---
XR chest 1V portable 03/19/2024 08:28 Indication: Cough. Covid. Procedure: AP portable chest Comparison: Comparison to multiple prior studies sequentially, with oldest reviewed study dated 03/12. Findings: Heart size mildly enlarged. Bilateral interstitial infiltrates. No significant effusion or pneumothorax. Impression: 1: Diffuse bilateral interstitial infiltrates may represent edema or pneumonia. Reviewed, dictated and finalized at location B. Impression: 1: Diffuse bilateral interstitial infiltrates may represent edema or pneumonia.
--- NOTE | 2024-03-12 18:28 | ECG_ITS ---
Test Date: 2024-03-12 18:37:44 Measurements Intervals [place] Rate: 98 P: 53 TN: 190 QRS: 11 QRSD: 98 T: -4 QT: 313 QTc: 400 Interpretive Statements SINUS RHYTHM WITH SINUS ARRHYTHMIA EARLY PRECORDIAL R/S TRANSITION BASELINE ARTIFACT- I, II, III, AVR, AVL, AVF, V1-V6 BORDERLINE ECG No previous ECG available for comparison Electronically Signed On 03-12-2024 19:54:48 CDT by Steven López D.O.
[2024-03-12] MEDS: SODIUM CHLORIDE 0.9% IV 1,000 ML 999 ML IV CONT (18:45)
[2024-03-12 19:10] LABS: Hematocrit 26.3 % (42.0-52.0); Hemoglobin 8.8 g/dL (14.0-18.0); Immature Platelet Fraction Pct 6.9 % (0.9-11.2); Mean Corpuscular HGB Conc 33.5 g/dl (32-36); Mean Corpuscular Hemoglobin 32.1 pg (26-34); Mean Platelet Volume 11.1 fl (7.4-10.4); Platelet Count Result 51 k/mm3 (150-375); Red Blood Count 2.74 M/mm3 (4.6-6.20); Red Cell Distribution Width 16.8 % (11.5-14.5); White Blood Count 4.8 K/mm3 (4.5-10.0)
--- NOTE | 2024-03-12 19:10 | ED.GENADULT ---
HPI - General Adult General Chief complaint: Shortness of Breath/Dyspnea Stated complaint: short of breath Time Seen by Provider: 03/12/24 18:53 History of Present Illness HPI narrative: This 68-year-old male with liver cirrhosis and COPD presenting for difficulty breathing. Patient says he has been having steadily worse breathing over the last week. He is coughing up clear sputum. He denies fevers chills chest pain lower extremity edema. Patient has liver failure with abdominal distension. His last paracentesis required 10.2 L to be removed exam patient states he has been compliant with his medications. He is denying abdominal discomfort. Related Data Home Medications Medication Instructions Recorded Confirmed furosemide 20 mg tablet 20 mg PO DAILY 11/14/19 03/02/24 spironolactone 50 mg tablet 50 mg PO DAILY 11/14/19 03/02/24 lactulose 10 gram/15 mL oral syrup 10 g PO BID 03/28/23 03/02/24 baclofen 5 mg tablet 5 mg PO TID 06/13/23 03/02/24 ergocalciferol (vitamin D2) 50,000 1 unit PO WEEKLY 06/13/23 03/02/24 unit tablet hydrocortisone acetate 25 mg 25 mg RECTAL BID 06/13/23 03/02/24 rectal suppository (Anusol-HC) lactulose 10 gram/15 mL oral 10 g PO TID 06/13/23 03/02/24 solution (Enulose) lidocaine 4 % topical patch 2 patch topical DAILY 06/13/23 03/02/24 oxycodone 5 mg tablet 5 mg PO Q4H PRN Pain (Scale Score 06/13/23 03/02/24 7-10) polyethylene glycol 3350 17 gram 17 g PO DAILY PRN Constipation 06/13/23 03/02/24 oral powder packet (Miralax) senna-docusate sodium tablet 2 tablet PO BID 06/13/23 03/02/24 thiamine HCl (vitamin B1) 100 mg 100 mg PO DAILY 06/13/23 03/02/24 tablet Allergies Allergy/AdvReac Type Severity Reaction Status Date / Time No Known Allergies Allergy Mild Verified 03/02/24 13:01 [facility] Past Medical History Medical History Anasarca Asthma Cirrhosis EGD September [address] Bush showed no esophageal varices. Closed C2 fracture (05/2023) Esophageal hernia Hypertrophic obstructive cardiomyopathy (HOCM) Echocardiogram on 10/08/2019 showed hyperdynamic left ventricular systolic function with ejection fraction estimated > 70%, moderate symmetric septal increased left ventricular wall thickness, chordal systolic anterior motion seen with modest 16 millimeters LVOT gradient, all findings consistent with hypertrophic cardiomyopathy with mild LVOT gradient. Portal venous hypertension Surgical History Surgical History No significant past surgical history Family History Family History Unknown Family history unknown Father Acute myocardial infarction Sibling Diabetes mellitus Social History Social History Social History: The patient lives in [place]. He is , and has 1 adopted child. 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 His daughter, Shayy, is his surrogate decision maker and he wishes to be a full code. He smoked about 0.5 to 1 pack of cigarettes per day and quit about 5 years ago.He smoked cigars for short period time. He denies ever being a heavy drinker, and says he has not drank much for several years. Denies drug use. Smoking packs per day: 1 Smoking cigarettes per day: 20.0 Years smoked: 37 Smoking pack-years: 37.00 Smoking status: Current some day smoker Tobacco type: cigarettes Second hand tobacco smoke exposure: Yes Smoking end date: 08/24/14 Additional smoking assessment comments: STARTED SMOKING AT AGE 26 Alcohol intake: former Substance use: former Substance use type: does not use Lack of Transportation: YES Lack of Food: Never True Current Housing: I Have Housing Concerned About Future Housing: No Difficulty Paying Gas/Electric Bills: No Difficulty Paying for Meds: No Currently Unemployed: No Educati
[2024-03-12] MEDS: IPRATROPIUM 0.5 MG/ALBUTEROL SULFATE 2.5 MG AMPUL.NEB 3 ML 12 ML INHALATION (19:17)
[2024-03-12] MEDS: dexAMETHasone SOD PHOS INJ 10 MG/ML 1 ML VIAL IV PUSH (19:20)
[2024-03-12 19:21] LABS: Lactic Acid Reflex 3.3 mmol/L (0.7-2.0)
[2024-03-12 19:21] LABS: Alanine Aminotransferase 29 U/L (6-50); Albumin Level 2.7 g/dL (3.5-5.1); Alkaline Phosphatase 118 U/L (38-126); Anion Gap 13 mmol/L (4-12); Aspartate Amino Transferase 40 U/L (17-59); Bilirubin,Total 2.7 mg/dL (0.2-1.3); Blood Urea Nitrogen 24 mg/dL (9-20); Calcium 8.5 mg/dL (8.4-10.2); Carbon Dioxide 12 mmol/L (22-30); Chloride 99 mmol/L (98-107); Estimated CRCL calculation 46 ml/min; Estimated Glomerular Filt Rate 55; Glucose 134 mg/dL (65-110); Potassium 3.8 mmol/L (3.4-5.0); Sodium 124 mmol/L (137-145)
[2024-03-12 19:28] LABS: Ammonia 55 umol/L (9-30)
[2024-03-12 19:29] LABS: NT Pro B Type Natriuretic Pept 540 pg/mL (19.9-100)
[2024-03-12 19:29] LABS: Fractional Inspired Oxygen 21 %; HCO3 VBG 13.4 mEq/l (24.0-30.0); PO2 VBG 38.6 mmHg (35.0-45.0); pH VBG 7.376 (7.300-7.400)
[2024-03-12 19:39] LABS: Band Neutrophils Percent 2 % (0-6); Lymphocytes Absolute Manual 0.19 K/mm3 (1.1-4.5); Monocytes Absolute Manual 0.48 K/mm3 (0.1-0.90); Monocytes Percent Manual 10 % (3-9); Neutrophils Absolute Manual 4.12 K/mm3 (1.3-6.7); Neutrophils Percent Manual 84 % (46-73); Total Cells Counted 100
[2024-03-12 19:40] LABS: Anisocytosis 2+; Platelet Estimate Decreased (Adequate); Schistocytes None Seen
[2024-03-12 19:51] LABS: Influenza A QL RT-PCR Negative (Negative); Influenza B QL RT-PCR Negative (Negative); RSV RNA, RT-PCR Negative (Negative); SARS-CoV-2 RNA PCR Positive (Negative)
[2024-03-12 19:54] LABS: PCO2 VBG 23.3 mmHg (42.0-48.0)
[2024-03-12 22:06] LABS: Reflex Lactic Acid Yes or No Add Lactic
[2024-03-12] MEDS: ALBUMIN HUMAN 25% 25 GM/100 ML 100 ML IVPB (23:20)
[2024-03-12 23:31] LABS: Lactic Acid 1.6 mmol/L (0.7-2.0)
--- NOTE | 2024-03-12 23:50 | ADMGEN ---
Addendum entered by Elisabet Singh RN 03/13/24 01:23: ADMITTED 03/12/24 [id number] Original Note: This patient, Bo Freedman, was admitted to 2 Medical Room 252-01. Patient/family oriented to hospital policies and general routines including ID bracelet, bed and alarms, visiting hours, pain management, procedures, bathroom and other care routines, personal items, smoking policy, room service/diet, and visiting hours. Information on how to activate the Rapid Response Team has been discussed. Patient/Family are encouraged to report perceived risks to care and to ask questions if they do not understand what they are told or what they should do.
[2024-03-13] VITALS (17 sets, daily range): BP systolic 98–119; BP diastolic 58–79; PULSE 87–107; RESP 16–19; TEMP 35.7–36.8; O2SAT 95–100; BMI 22.1
[2024-03-13] MEDS: ALBUTEROL SULFATE NEB 2.5 MG/3 ML INH INHALATION ×4 (02:21→20:00)
[2024-03-13] MEDS: ALBUMIN HUMAN 25% 25 GM/100 ML 100 ML IVPB ×3 (05:35→18:08)
--- NOTE | 2024-03-13 09:18 | PM.IMHP ---
H&P: HPI History of Present Illness Date/Time: 03/13/24 09:18 Chief Complaint: Shortness of breath Narrative: 68-year-old male with past medical history of COPD, cirrhosis with recurrent ascites and chronic tobacco use among other comorbidities who presented to the ER from home with approximately 5 days of increasing shortness of breath. Patient reports that he does have a chronic cough but his cough is worse than usual. Cough is dry. He denies having any fevers. He lives in his own home with a roommate. He denies any known ill contacts. Patient reports that his abdomen is been progressively more distended tense his last paracentesis 2 weeks ago. He reports he had his last paracentesis performed at [place] where his chemist biological is. He stated that he had 10.2 L removed. In the ER patient's blood pressures were intermittently low but improved after 1 dose of IV albumin. In the ER chest x-ray per form demonstrated markedly decreased lung volumes with possible interstitial opacities in the lower lung zones. X-ray interpreted prior to radiologic interpretation. Patient had a normal white count. She had baseline anemia with chronic thrombocytopenia. His COVID PCR returned positive. Patient did not have any oxygen requirement in the ER but had marked wheezing marked abdominal distension is at high risk for decompensation given his multiple cor morbidities and was admitted in this setting. The patient never did confirm for me whether not he had had COVID vaccine. FOR[facility]LY [facility], LATER [facility] Past Medical History Medical History (Updated 03/14/24 @ 01:18 by Delmis Alfaro DO) (HFpEF) heart failure with preserved ejection fraction Anasarca Asthma Cirrhosis EGD September [address] Bush showed no esophageal varices. Closed C2 fracture (05/2023) Continuous dependence on cigarette smoking Esophageal hernia HCC (hepatocellular carcinoma) (03/2023) Hypertrophic obstructive cardiomyopathy (HOCM) Echocardiogram on 10/08/2019 showed hyperdynamic left ventricular systolic function with ejection fraction estimated > 70%, moderate symmetric septal increased left ventricular wall thickness, chordal systolic anterior motion seen with modest 16 millimeters LVOT gradient, all findings consistent with hypertrophic cardiomyopathy with mild LVOT gradient. Inguinal hernia Portal venous hypertension Thrombocytopenia Surgical History Surgical History No significant past surgical history Family History Family History Unknown Family history unknown Father Acute myocardial infarction Sibling Diabetes mellitus Social History Social History Social History: The patient lives in [place]. He is , and has 1 adopted child. 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 His daughter, Shayy, is his surrogate decision maker and he wishes to be a full code. He smoked about 0.5 to 1 pack of cigarettes per day and quit about 5 years ago.He smoked cigars for short period time. He denies ever being a heavy drinker, and says he has not drank much for several years. Denies drug use. Smoking packs per day: 1 Smoking cigarettes per day: 20.0 Years smoked: 37 Smoking pack-years: 37.00 Smoking status: Light tobacco smoker Tobacco type: cigarettes Second hand tobacco smoke exposure: Yes Smoking end date: 08/24/14 Additional smoking assessment comments: STARTED SMOKING AT 27; STATES QUIT 2014; STILL SMOKES :2-3 CIGS A DAY Alcohol intake: former Substance use: never Substance use type: does not use Do You Feel Safe in your Home?: Yes Lack of Transportation: YES Lack of Food: Never True Current Housing: I Have Housing Concerned About Future Housing: No Difficulty Paying Gas/Electric Bills: YES Difficulty Paying for Meds: YES Currently Unemployed: No Education: [employer]
[2024-03-13 10:08] LABS: Hematocrit 24.9 % (42.0-52.0); Hemoglobin 8.3 g/dL (14.0-18.0); Immature Platelet Fraction Pct 6.8 % (0.9-11.2); Mean Corpuscular HGB Conc 33.3 g/dl (32-36); Mean Corpuscular Hemoglobin 32.2 pg (26-34); Mean Corpuscular Volume 96.5 fl (80-100); Mean Platelet Volume 11.7 fl (7.4-10.4); Platelet Count Result 32 k/mm3 (150-375); Red Blood Count 2.58 M/mm3 (4.6-6.20); Red Cell Distribution Width 16.7 % (11.5-14.5)
[2024-03-13 10:18] LABS: Alanine Aminotransferase 25 U/L (6-50); Albumin Level 3.3 g/dL (3.5-5.1); Alkaline Phosphatase 111 U/L (38-126); Anion Gap 12 mmol/L (4-12); Aspartate Amino Transferase 32 U/L (17-59); Bilirubin,Total 2.1 mg/dL (0.2-1.3); Blood Urea Nitrogen 24 mg/dL (9-20); Calcium 8.7 mg/dL (8.4-10.2); Carbon Dioxide 13 mmol/L (22-30); Chloride 100 mmol/L (98-107); Estimated CRCL calculation 57 ml/min; Estimated Glomerular Filt Rate > 60; Glucose 223 mg/dL (65-110); Potassium 3.9 mmol/L (3.4-5.0); Sodium 125 mmol/L (137-145)
[2024-03-13 10:22] LABS: INR 1.9; Prothrombin Time 22.6 Seconds (11.1-14.7); White Blood Count 1.6 K/mm3 (4.5-10.0)
[2024-03-13] MEDS: LIDOCAINE 5% PATCH 2 PATCH TOPICAL (10:45)
[2024-03-13] MEDS: LACTULOSE 20 GM/30 ML UDC PO ×2 (10:45→18:08)
[2024-03-13] MEDS: GABAPENTIN 300 MG CAPSULE PO ×3 (10:46→18:08)
[2024-03-13] MEDS: THIAMINE HCL 100 MG TABLET PO (10:46)
[2024-03-13] MEDS: dexAMETHasone SOD PHOS INJ 10 MG/ML 1 ML VIAL 6 MG IV PUSH (10:46)
[2024-03-13] MEDS: SPIRONOLACTONE 50 MG TABLET PO (10:46)
[2024-03-13] MEDS: MULTIVITAMINS THERAPEUTIC TAB (*BKC) 1 TABLET PO (10:46)
[2024-03-13] MEDS: BACLOFEN 5 MG TABLET PO ×3 (10:46→18:08)
[2024-03-13] MEDS: FUROSEMIDE 20 MG TABLET PO (10:46)
--- NOTE | 2024-03-13 13:59 | PCRCNOTE ---
Window of time for administration has passed. See next scheduled administration.
--- NOTE | 2024-03-13 16:02 | PM.IMPN ---
Progress Note: A&P Assessment and Plan (1) COPD exacerbation: Code(s): J44.1 - Chronic obstructive pulmonary disease with (acute) exacerbation Status: Acute Assessment and Plan: Patient has COPD exacerbation due to COVID and continued tobacco use. Patient reported little to no relief with home inhalers. Improved breathing with hour long albuterol provided in ER. He has COVID and was started on Decadron. He is high risk for decompensation due to his cirrhosis, COPD He has not required oxygen and dexamethasone may be associates with worse outcomes. Wheezing is minimal. Continue scheduled nebulizers. Stop dexamethasone. Remdesivir is recommended for high risk patient not on oxygen but hold since he already has lymphopenia and prolonged INR and Remdesivir could make this worse. (2) COVID: Code(s): U07.1 - COVID-19 Status: Acute Assessment and Plan: As above (3) Cirrhosis of liver with ascites: Code(s): K74.60 - Unspecified cirrhosis of liver; R18.8 - Other ascites Status: Chronic Assessment and Plan: Patient with cirrhosis and ascites. Patient is alert but difficult to assess but may have hepatic encephalopathy. Ammonia level elevated at 55. lactulose increased Paracentesis ordered. Will add cultures and other tests (4) Hyperammonemia: Code(s): E72.20 - Disorder of urea cycle metabolism, unspecified Status: Acute Assessment and Plan: As above. (5) Hyponatremia: Code(s): E87.1 - Hypo-osmolality and hyponatremia Status: Acute Assessment and Plan: Sodium 125 on admission. This is chronic and not too far off his baseline [place] related to above Follow (6) Continuous dependence on cigarette smoking: Code(s): F17.210 - Nicotine dependence, cigarettes, uncomplicated Status: Acute Assessment and Plan: Will be educated about the benefits of smoking cessation Plan Metabolic non-gap acidosis - bicarb 12 with gap of 13 with relatively normal renal function. VBG showing normal pH. Lactic acid 3.3 but now normal. Lactic better but bicarb still low. Glucose elevated but felt related to steroids. Leukopenia - probably related to the cirrhosis and/or COVID. Follow TCP - plt count low chronically and could be worse related to COVID. continue to monitor Normocytic Anemia - chronic from the liver failure. DVT prophylaxis - SCDs Code status - Full Subjective Date/time seen: 03/13/24 16:02 Interval history: 68yo male with COPD, cirrhosis with recurrent ascites and chronic tobacco use who presented to the ER from home with approximately 5 days of increasing shortness of breath. Still feels short of breath. He does not answer direct questions but continues on speaking. He is difficult directing to provide accurate hx. Review of Systems Review of Systems: ROS unobtainable: Yes unobtainable due to mental status Exam Narrative: AF 97.6 114/60 102 18 99% ra Gen - chronically ill, thin, jaundiced appearing male in NARD Chest - coarse BS CV - RRR S1/S2 Abd - Soft, distended. large protuberant umbilical hernia Ext - No pedal edema Neuro - orientation off. hard to keep on topic. Psych - Nml mood and affect Skin - jaundiced Objective Data Vital Signs Vital Signs: Vital Signs - 24 hr 03/12/24 18:22 03/12/24 18:21 03/12/24 19:18 Temperature 98.8 F Pulse Rate 113 H 94 Respiratory Rate 19 19 Blood Pressure 90/47 L Pulse Oximetry 100 100 Oxygen Delivery Room Air Room Air 03/12/24 22:30 03/12/24 23:00 03/12/24 23:19 Temperature Pulse Rate 100 109 H 107 H Respiratory Rate 20 17 19 Blood Pressure 112/50 L 88/50 L 82/59 L Pulse Oximetry 97 99 99 Oxygen Delivery 03/12/24 23:30 03/12/24 23:32 03/12/24 23:35 Temperature Pulse Rate 107 H 105 H Respiratory Rate 20 19 Blood Pressure 96/65 L 98/42 L Pulse Oximetry 97 98 97 Oxygen Delivery Room Air
[2024-03-13] MEDS: FLUTICASONE/SALMETEROL 115-21 MCG INHALER 1 PUFF 2 PUFF INHALATION (20:00)
[2024-03-14] VITALS (16 sets, daily range): BP systolic 109–120; BP diastolic 65–88; PULSE 80–102; RESP 16–24; TEMP 35.7–36.9; O2SAT 95–100; BMI 23.3
[2024-03-14] MEDS: ALBUMIN HUMAN 25% 25 GM/100 ML 100 ML IVPB ×3 (00:55→15:15)
[2024-03-14] MEDS: ALBUTEROL SULFATE NEB 2.5 MG/3 ML INH INHALATION ×4 (02:22→20:35)
[2024-03-14 06:19] LABS: Hematocrit 22.3 % (42.0-52.0); Hemoglobin 7.4 g/dL (14.0-18.0); Immature Granulocyte Absolute 0.03 K/mm3 (0.00-0.031); Immature Granulocyte Percent A 0.6 % (0-0.5); Immature Platelet Fraction Pct 7.9 % (0.9-11.2); Lymphocytes Absolute Auto 0.11 K/mm3 (0.9-3.2); Lymphocytes Percent Auto 2.3 % (18.3-44.2); Mean Corpuscular HGB Conc 33.2 g/dl (32-36); Mean Corpuscular Hemoglobin 31.9 pg (26-34); Mean Corpuscular Volume 96.1 fl (80-100); Mean Platelet Volume 11.1 fl (7.4-10.4); Monocytes Absolute Auto 0.6 K/mm3 (0.1-0.6); Neutrophils Absolute Auto 4.1 K/mm3 (1.3-6.7); Neutrophils Percent Auto 84.1 % (45.5-73.1); Platelet Count Result 32 k/mm3 (150-375); Red Blood Count 2.32 M/mm3 (4.6-6.20); Red Cell Distribution Width 16.6 % (11.5-14.5); White Blood Count 4.8 K/mm3 (4.5-10.0)
[2024-03-14 06:29] LABS: Ammonia < 9 umol/L (9-30); INR 2.1; Prothrombin Time 24.6 Seconds (11.1-14.7)
[2024-03-14 06:54] LABS: Alanine Aminotransferase 25 U/L (6-50); Albumin Level 3.6 g/dL (3.5-5.1); Alkaline Phosphatase 130 U/L (38-126); Anion Gap 15 mmol/L (4-12); Aspartate Amino Transferase 35 U/L (17-59); Bilirubin,Total 1.4 mg/dL (0.2-1.3); Blood Urea Nitrogen 24 mg/dL (9-20); Carbon Dioxide 12 mmol/L (22-30); Chloride 102 mmol/L (98-107); Estimated CRCL calculation 65 ml/min; Estimated Glomerular Filt Rate > 60; Glucose 130 mg/dL (65-110); Magnesium 1.7 mg/dL (1.6-2.3); Phosphorus 2.8 mg/dL (2.5-4.5); Sodium 129 mmol/L (137-145)
[2024-03-14 07:16] LABS: Anisocytosis 1+; Burr Cells 1+; Platelet Estimate Decreased (Adequate); Poikilocytosis 1+; Schistocytes Rare
[2024-03-14] MEDS: FLUTICASONE/SALMETEROL 115-21 MCG INHALER 1 PUFF 2 PUFF INHALATION ×2 (08:30→20:35)
[2024-03-14] MEDS: LIDOCAINE 5% PATCH 2 PATCH TOPICAL (11:55)
[2024-03-14] MEDS: MAGNESIUM SULF 2 GM/WATER 50ML 2 GM/50 ML BAG IVPB (11:55)
--- NOTE | 2024-03-14 13:57 | PM.IMPN ---
Progress Note: A&P Assessment and Plan (1) COPD exacerbation: Code(s): J44.1 - Chronic obstructive pulmonary disease with (acute) exacerbation Status: Acute Assessment and Plan: Patient has COPD exacerbation due to COVID and continued tobacco use. Patient reported little to no relief with home inhalers. Improved breathing with hour long albuterol provided in ER. He has COVID and was started on Decadron. He is high risk for decompensation due to his cirrhosis, COPD He has not required oxygen and dexamethasone may be associates with worse outcomes. Wheezing is minimal. Continue scheduled nebulizers. Stop dexamethasone. Remdesivir is recommended for high risk patient not on oxygen but hold since he already has lymphopenia and prolonged INR and Remdesivir could make this worse. He remains on room air. Continue supportive care (2) Altered mental status: Code(s): R41.82 - Altered mental status, unspecified Status: Acute Assessment and Plan: Patient is awake but having trouble providing history. Consider related to COVID. Consider hypercarbia. Consider SBP BCx NGTD Ammonia level elevated and treated with lactulose. Ammonia level better but still could be hepatic encephalopathy. Check CT brain, Check ABG. Check UA (3) COVID: Code(s): U07.1 - COVID-19 Status: Acute Assessment and Plan: As above (4) Cirrhosis of liver with ascites: Qualifiers: Hepatic cirrhosis type: unspecified hepatic cirrhosis Qualified Code(s): K74.60 - Unspecified cirrhosis of liver; R18.8 - Other ascites Code(s): K74.60 - Unspecified cirrhosis of liver; R18.8 - Other ascites Status: Chronic Assessment and Plan: Patient with cirrhosis and ascites. Patient is alert but difficult to assess but may have hepatic encephalopathy. Ammonia level elevated at 55. lactulose increased and ammonia<9 Consider SBP. Paracentesis ordered. Will add cultures and other tests (5) Hyperammonemia: Code(s): E72.20 - Disorder of urea cycle metabolism, unspecified Status: Acute Assessment and Plan: As above. (6) Hyponatremia: Code(s): E87.1 - Hypo-osmolality and hyponatremia Status: Acute Assessment and Plan: Sodium 125 on admission. This is chronic and not too far off his baseline [place] related to above Repeat better at 129 Follow (7) Continuous dependence on cigarette smoking: Code(s): F17.210 - Nicotine dependence, cigarettes, uncomplicated Status: Acute Assessment and Plan: Will be educated about the benefits of smoking cessation Plan Metabolic non-gap acidosis - bicarb 12 with gap of 13 with relatively normal renal function. VBG showing normal pH. Lactic acid 3.3 but now normal. Lactic better but bicarb still low. Glucose elevated but felt related to steroids. Still with metabolic acidosis. Add oral bicarb Leukopenia - probably related to the cirrhosis and/or COVID. Better today. Follow TCP - plt count low chronically and could be worse related to COVID. Stable, Continue to monitor Normocytic Anemia - chronic from the liver failure. DVT prophylaxis - SCDs Code status - Full Subjective Date/time seen: 03/14/24 13:57 Interval history: 68yo male with COPD, cirrhosis with recurrent ascites and chronic tobacco use who presented to the ER from home with approximately 5 days of increasing shortness of breath. Patient with cough. He feels weak and hungry. He is awake but hx limited still. Exam Narrative: AF 97.5 113/74 86 17 98% ra Gen - chronically ill, thin male in NARD sititng up inbed Chest - coarse BS CV - RRR S1/S2 Abd - Soft, distended, +BS. large protuberant umbilical hernia Ext - No pedal edema Neuro - awake but provides minimal Psych - Nml mood and affect Skin - multiple, small eschars bilateral UE forearms so have been picked open. Objective Data Vital Signs Vi
[2024-03-14 14:59] LABS: Appearance Peritoneal Fluid Clear (Clear); Color Peritoneal Fluid Yellow (Colorless); Source Peritoneal Fluid Peritoneal Fluid
[2024-03-14 15:00] LABS: Nucleated Cells Peritoneal Flu 47 /uL (0-500)
[2024-03-14 15:01] LABS: Alveolar/Arterial O2 Gradient 2.2 mmHg; Base Excess ABG -9.4 mEq/l (+/-2.0); Fractional Inspired Oxygen 21 %; HCO3 ABG 13.6 mEq/l (22.0-26.0); Oxygen Saturation ABG 98.6 % (95.0-100.0); Oxyhemoglobin 97.6 % THb (90.0-100.0); PO2 ABG 122.7 mmHg (80.0-100.0); PO2 FiO2 Ratio Arterial Blood 5.84 %; pH ABG 7.435 (7.350-7.450)
[2024-03-14 15:02] LABS: Lymphocytes Peritoneal Fluid 9 %; Macrophages Peritoneal Fluid 79 %; Neutrophils Peritoneal Fluid 12 % (0-25); RBC Peritoneal Fluid 4000 /uL (0-10000)
[2024-03-14 15:05] LABS: Device ROOM AIR; Modified Allen's Test Pass; PCO2 ABG 20.7 mmHg (35.0-45.0); Site Drawn RIGHT RADIAL; Total Hemoglobin 7.8 g/dL (12.0-18.0)
[2024-03-14] MEDS: SODIUM BICARBONATE 8.4% 150 MEQ in WATER, STERILE FOR INJECTION 950 ML 50 MEQ IV CONT (15:14)
[2024-03-14] MEDS: THIAMINE HCL 100 MG TABLET PO (15:16)
[2024-03-14] MEDS: SODIUM BICARBONATE TAB 650 MG TABLET PO ×2 (15:16→18:34)
[2024-03-14] MEDS: LACTULOSE 20 GM/30 ML UDC PO ×2 (15:16→18:34)
[2024-03-14] MEDS: SPIRONOLACTONE 50 MG TABLET PO (15:16)
[2024-03-14] MEDS: FUROSEMIDE 20 MG TABLET PO (15:16)
[2024-03-14] MEDS: GABAPENTIN 300 MG CAPSULE PO ×2 (15:16→18:34)
[2024-03-14] MEDS: BACLOFEN 5 MG TABLET PO ×2 (15:16→18:34)
[2024-03-14] MEDS: MULTIVITAMINS THERAPEUTIC TAB (*BKC) 1 TABLET PO (15:16)
[2024-03-14] MEDS: POTASSIUM CHLORIDE 20 MEQ PACKET (FOR LIQUID) 40 MEQ PO (15:17)
[2024-03-14] MEDS: oxyCODONE HCL (*CRX) 5 MG TAB IR PO (20:47)
[2024-03-15] VITALS (25 sets, daily range): BP systolic 102–130; BP diastolic 62–93; PULSE 70–108; RESP 12–20; TEMP 35.8–36.4; O2SAT 94–100
--- NOTE | 2024-03-15 01:00 | P.PNCROSS_ITS ---
Event Note Event Note Event Note: Nursing staff called because patient had a extremely large watery bloody appear ing stool. Patient on admission had had hyperammonemia. Repeat ammonia level today was a less than 9. We have probably over shot on the amount of lactulose needed. Wonder if patient was not taking his lactulose as prescribed at home. Either way at this time lactulose needs to be decreased. Will decrease the patient's lactulose down to 10 g daily. Nursing staff says that the patient's bowel movement was essentially straight water and they were unable to send a specimen down to the lab for occult testing. At this time will check a stat H&H and a type and screen.
[2024-03-15 01:27] LABS: Hematocrit 20.8 % (42.0-52.0)
[2024-03-15] MEDS: ALBUTEROL SULFATE NEB 2.5 MG/3 ML INH INHALATION ×4 (02:08→20:12)
[2024-03-15] MEDS: SODIUM CHLORIDE 0.9% IV 250 ML 30 ML IV CONT (06:43)
--- NOTE | 2024-03-15 06:52 | PC.NURSE ---
Pt had incontinent BM, red tinged, large quantity, liquid to pudding consistency. This RN notified Dr Alfaro, orders received for H&H. Critical results received, new orders received for 1 unit transfusion. Orders implemented. Pt tolerating transfusion well.
[2024-03-15] MEDS: FLUTICASONE/SALMETEROL 115-21 MCG INHALER 1 PUFF 2 PUFF INHALATION ×2 (07:15→20:12)
[2024-03-15 08:30] LABS: Hematocrit 25.8 % (42.0-52.0); Hemoglobin 8.8 g/dL (14.0-18.0); Immature Granulocyte Absolute 0.05 K/mm3 (0.00-0.031); Immature Granulocyte Percent A 0.8 % (0-0.5); Lymphocytes Absolute Auto 0.26 K/mm3 (0.9-3.2); Lymphocytes Percent Auto 3.9 % (18.3-44.2); Mean Corpuscular HGB Conc 34.1 g/dl (32-36); Mean Corpuscular Hemoglobin 32.1 pg (26-34); Mean Corpuscular Volume 94.2 fl (80-100); Mean Platelet Volume 12.3 fl (7.4-10.4); Monocytes Absolute Auto 0.7 K/mm3 (0.1-0.6); Monocytes Percent Auto 9.9 % (2.6-8.5); Neutrophils Absolute Auto 5.6 K/mm3 (1.3-6.7); Neutrophils Percent Auto 85.4 % (45.5-73.1); Platelet Count Result 29 k/mm3 (150-375); Red Blood Count 2.74 M/mm3 (4.6-6.20); Red Cell Distribution Width 16.2 % (11.5-14.5); White Blood Count 6.6 K/mm3 (4.5-10.0)
[2024-03-15 08:43] LABS: Alanine Aminotransferase 24 U/L (6-50); Albumin Level 3.2 g/dL (3.5-5.1); Alkaline Phosphatase 93 U/L (38-126); Anion Gap 10 mmol/L (4-12); Aspartate Amino Transferase 34 U/L (17-59); Bilirubin,Total 2.4 mg/dL (0.2-1.3); Blood Urea Nitrogen 21 mg/dL (9-20); Carbon Dioxide 18 mmol/L (22-30); Chloride 104 mmol/L (98-107); Estimated CRCL calculation 77 ml/min; Estimated Glomerular Filt Rate > 60; Glucose 132 mg/dL (65-110); Magnesium 1.7 mg/dL (1.6-2.3); Phosphorus 2.3 mg/dL (2.5-4.5); Potassium 3.6 mmol/L (3.4-5.0); Sodium 132 mmol/L (137-145)
[2024-03-15] MEDS: THIAMINE HCL 100 MG TABLET PO (11:20)
[2024-03-15] MEDS: MULTIVITAMINS THERAPEUTIC TAB (*BKC) 1 TABLET PO (11:20)
[2024-03-15] MEDS: FUROSEMIDE 20 MG TABLET PO (11:20)
[2024-03-15] MEDS: SODIUM BICARBONATE TAB 650 MG TABLET PO ×2 (11:20→18:15)
[2024-03-15] MEDS: BACLOFEN 5 MG TABLET PO ×3 (11:20→18:16)
[2024-03-15] MEDS: GABAPENTIN 300 MG CAPSULE PO ×3 (11:20→18:15)
[2024-03-15] MEDS: LIDOCAINE 5% PATCH 2 PATCH TOPICAL (11:20)
[2024-03-15] MEDS: LACTULOSE 20 GM/30 ML UDC 10 GM PO (11:20)
[2024-03-15] MEDS: SPIRONOLACTONE 50 MG TABLET PO (11:20)
--- NOTE | 2024-03-15 13:49 | PM.IMPN ---
Progress Note: A&P Assessment and Plan (1) COPD exacerbation: Code(s): J44.1 - Chronic obstructive pulmonary disease with (acute) exacerbation Status: Acute Assessment and Plan: Patient has COPD exacerbation due to COVID and continued tobacco use. Patient reported little to no relief with home inhalers. Improved breathing with hour long albuterol provided in ER. He has COVID and was started on Decadron. He is high risk for decompensation due to his cirrhosis, COPD He has not required oxygen and dexamethasone may be associates with worse outcomes so this was stopped. Wheezing is minimal. Continue scheduled nebulizers. He remains on room air. Continue supportive care (2) Altered mental status: Code(s): R41.82 - Altered mental status, unspecified Status: Acute Assessment and Plan: Patient is more awake, alert and oriented. ABG 7.43/21/[address] brai showing no acute process Paracentesis fluid not consistent with SBP but Gram stain positive BCx NGTD. Ammonia 55 Suspect AMS related to hepatic encephalopathy possibly triggered by ?SBP. Hyperammonemia treated with lactulose. Ammonia level better and mental status better PT/OT. Increase activity. (3) COVID: Code(s): U07.1 - COVID-19 Status: Acute Assessment and Plan: Remdesivir is recommended for high risk patient not on oxygen but held since he already has lymphopenia and prolonged INR and Remdesivir could make this worse. As above (4) Cirrhosis of liver with ascites: Qualifiers: Hepatic cirrhosis type: unspecified hepatic cirrhosis Qualified Code(s): K74.60 - Unspecified cirrhosis of liver; R18.8 - Other ascites Code(s): K74.60 - Unspecified cirrhosis of liver; R18.8 - Other ascites Status: Chronic Assessment and Plan: Patient with cirrhosis and ascites. Patient probably with hepatic encephalopathy. Ammonia level elevated at 55. lactulose increased and ammonia<9 Paracentesis with 5L removed. pre-treated with Albumin 4000 RBC, 47 WBC with 79% macrophages. Gram stain today showing few WBC and few Gram positive cocci. Cx pending. ARCHANA-SOFA 8. Add abx. (5) Hyperammonemia: Code(s): E72.20 - Disorder of urea cycle metabolism, unspecified Status: Acute Assessment and Plan: As above. (6) Hyponatremia: Code(s): E87.1 - Hypo-osmolality and hyponatremia Status: Acute Assessment and Plan: Sodium 125 on admission. This is chronic and not too far off his baseline [place] related to above Repeat better at 132 Follow (7) Continuous dependence on cigarette smoking: Code(s): F17.210 - Nicotine dependence, cigarettes, uncomplicated Status: Acute Assessment and Plan: Educate about the benefits of smoking cessation Plan SHARIFA - Cr 1.3 on admission but improved with treatment down to 0.7. Follow. Metabolic non-gap acidosis - bicarb 12 with gap of 13 with acute renal failure. VBG showing normal pH. Lactic acid 3.3 but now normal. Lactic better but bicarb still low. Glucose elevated but felt related to steroids. Still with metabolic acidosis at 18 (AG normal). Continue oral bicarb Leukopenia - Transient and probably related to the cirrhosis and/or COVID and/or lab error. Follow TCP - plt count low chronically and could be worse related to COVID. Stable, Continue to monitor Normocytic Anemia - chronic from the liver failure. hgb 7.0 so 1U PRBC ordered. Blood streaked stools but known to have hemorrhoids and on Anusol currently. Monitor HH. DVT prophylaxis - SCDs Code status - Full Subjective Date/time seen: 03/15/24 13:49 Interval history: 68yo male with COPD, cirrhosis with recurrent ascites and chronic tobacco use who presented to the ER from home with approximately 5 days of increasing shortness of breath. Had 5L removed with paracentesis yesterday. Watery stool this morning that had a blood streak. Hg
[2024-03-15] MEDS: MEROPENEM 1 GM/NS 100 ML 1 GM/100 ML BAG IVPB ×2 (15:57→21:11)
[2024-03-15] MEDS: POTASSIUM/PHOSPHORUS/SODIUM 1.5 GM PACKET 1 PACKET PO (18:16)
[2024-03-15 18:24] LABS: Appearance Urine Clear (Clear); Bilirubin Urine Negative (Negative); Blood Urine Negative (Negative); Color Urine Yellow (Yellow); Glucose Urine UA Negative (Negative); Ketones Urine Negative (Negative); Leukocyte Esterase Ur Negative LEU/UL (Negative); Nitrate Urine Negative (Negative); Protein Urine Negative (Negative); Specific Grav Ur 1.011 (1.001-1.035); Urobilinogen Urine 0.2 mg/dL (<2.0); pH Urine 5.5 (5.0-9.0)
[2024-03-15 18:31] LABS: Add Urine Microscopic? NO
[2024-03-15 20:24] LABS: Glucose Point of Care 149 mg/dl (65-105)
[2024-03-16] VITALS (12 sets, daily range): BP systolic 101–133; BP diastolic 60–90; PULSE 76–106; RESP 12–20; TEMP 36.2–36.3; O2SAT 98–100
[2024-03-16] MEDS: ALBUTEROL SULFATE NEB 2.5 MG/3 ML INH INHALATION ×3 (03:07→13:56)
[2024-03-16 05:39] LABS: Eosinophils Percent Auto 0.2 % (0-4.4); Hematocrit 27.9 % (42.0-52.0); Hemoglobin 9.5 g/dL (14.0-18.0); Immature Granulocyte Absolute 0.05 K/mm3 (0.00-0.031); Immature Granulocyte Percent A 0.8 % (0-0.5); Immature Platelet Fraction Pct 9.2 % (0.9-11.2); Lymphocytes Absolute Auto 0.34 K/mm3 (0.9-3.2); Lymphocytes Percent Auto 5.5 % (18.3-44.2); Mean Corpuscular HGB Conc 34.1 g/dl (32-36); Mean Corpuscular Volume 93.9 fl (80-100); Mean Platelet Volume 11.3 fl (7.4-10.4); Monocytes Absolute Auto 0.6 K/mm3 (0.1-0.6); Monocytes Percent Auto 10.3 % (2.6-8.5); Neutrophils Absolute Auto 5.2 K/mm3 (1.3-6.7); Neutrophils Percent Auto 83.2 % (45.5-73.1); Red Blood Count 2.97 M/mm3 (4.6-6.20); Red Cell Distribution Width 16.8 % (11.5-14.5); White Blood Count 6.2 K/mm3 (4.5-10.0)
[2024-03-16 05:50] LABS: Alanine Aminotransferase 29 U/L (6-50); Albumin Level 3.2 g/dL (3.5-5.1); Alkaline Phosphatase 96 U/L (38-126); Anion Gap 12 mmol/L (4-12); Aspartate Amino Transferase 36 U/L (17-59); Bilirubin,Total 3.6 mg/dL (0.2-1.3); Blood Urea Nitrogen 20 mg/dL (9-20); Carbon Dioxide 20 mmol/L (22-30); Chloride 98 mmol/L (98-107); Estimated CRCL calculation 69 ml/min; Estimated Glomerular Filt Rate > 60; Glucose 117 mg/dL (65-110); Magnesium 1.5 mg/dL (1.6-2.3); Phosphorus 2.6 mg/dL (2.5-4.5); Potassium 3.6 mmol/L (3.4-5.0); Sodium 130 mmol/L (137-145)
[2024-03-16 06:05] LABS: Platelet Count Result 25 k/mm3 (150-375)
[2024-03-16] MEDS: MEROPENEM 1 GM/NS 100 ML 1 GM/100 ML BAG IVPB (06:12)
[2024-03-16] MEDS: FLUTICASONE/SALMETEROL 115-21 MCG INHALER 1 PUFF 2 PUFF INHALATION ×2 (08:42→20:41)
[2024-03-16] MEDS: SODIUM BICARBONATE TAB 650 MG TABLET PO ×2 (09:25→17:05)
[2024-03-16] MEDS: MULTIVITAMINS THERAPEUTIC TAB (*BKC) 1 TABLET PO (09:25)
[2024-03-16] MEDS: THIAMINE HCL 100 MG TABLET PO (09:25)
[2024-03-16] MEDS: BACLOFEN 5 MG TABLET PO ×3 (09:25→17:05)
[2024-03-16] MEDS: GABAPENTIN 300 MG CAPSULE PO ×3 (09:25→17:05)
[2024-03-16] MEDS: SPIRONOLACTONE 50 MG TABLET PO (09:25)
[2024-03-16] MEDS: FUROSEMIDE 20 MG TABLET PO (09:26)
[2024-03-16] MEDS: LIDOCAINE 5% PATCH 2 PATCH TOPICAL (09:26)
[2024-03-16] MEDS: LACTULOSE 20 GM/30 ML UDC 10 GM PO (09:26)
--- NOTE | 2024-03-16 12:52 | PM.IMPN ---
Progress Note: A&P Assessment and Plan (1) COPD exacerbation: Code(s): J44.1 - Chronic obstructive pulmonary disease with (acute) exacerbation Status: Acute Assessment and Plan: Patient has COPD exacerbation due to COVID and continued tobacco use. Patient reported little to no relief with home inhalers. Improved breathing with hour long albuterol provided in ER. He has COVID and was started on Decadron. He is high risk for decompensation due to his cirrhosis, COPD He has not required oxygen and dexamethasone may be associates with worse outcomes so this was stopped. Wheezing is minimal. Continue scheduled nebulizers. He remains on room air. Continue supportive care (2) Altered mental status: Code(s): R41.82 - Altered mental status, unspecified Status: Acute Assessment and Plan: Patient is more awake, alert and oriented. ABG 7.43/21/[address] brai showing no acute process Paracentesis fluid not consistent with SBP but Gram stain positive BCx NGTD. Ammonia 55 Suspect AMS related to hepatic encephalopathy possibly triggered by ?SBP. Hyperammonemia treated with lactulose. Ammonia level better and mental status better PT/OT. Increase activity. (3) COVID: Code(s): U07.1 - COVID-19 Status: Acute Assessment and Plan: Remdesivir is recommended for high risk patient not on oxygen but held since he already has lymphopenia and prolonged INR and Pt Pt is on iv rocephin (4) Cirrhosis of liver with ascites: Qualifiers: Hepatic cirrhosis type: unspecified hepatic cirrhosis Qualified Code(s): K74.60 - Unspecified cirrhosis of liver; R18.8 - Other ascites Code(s): K74.60 - Unspecified cirrhosis of liver; R18.8 - Other ascites Status: Chronic Assessment and Plan: Patient with cirrhosis and ascites. Patient probably with hepatic encephalopathy. Ammonia level elevated at 55. lactulose increased and ammonia<9 Paracentesis with 5L removed. pre-treated with Albumin 4000 RBC, 47 WBC with 79% macrophages. Gram stain today showing few WBC and few Gram positive cocci. Cx pending. rocephin started iv (5) Hyperammonemia: Code(s): E72.20 - Disorder of urea cycle metabolism, unspecified Status: Acute Assessment and Plan: As above. (6) Hyponatremia: Code(s): E87.1 - Hypo-osmolality and hyponatremia Status: Acute Assessment and Plan: Sodium 125 on admission.today sodium is 130 (7) Continuous dependence on cigarette smoking: Code(s): F17.210 - Nicotine dependence, cigarettes, uncomplicated Status: Acute Assessment and Plan: Educate about the benefits of smoking cessation Plan SHARIAF - Cr 1.3 on admission but improved with treatment down to 0.7. Follow. Metabolic non-gap acidosis - bicarb 12 with gap of 13 with acute renal failure. watch labs Continue oral bicarb Leukopenia - Transient and probably related to the cirrhosis continue to monitor in hospital TCP - plt count low chronically and could be worse related to COVID. Stable, Continue to monitor Normocytic Anemia - chronic from the liver failure. hgb 7.0 so 1U PRBC ordered. hb is 9 today Subjective Date/time seen: 03/16/24 12:52 Interval history: 68yo male with COPD, cirrhosis with recurrent ascites and chronic tobacco use who presented to the ER from home with approximately 5 days of increasing shortness of breath. Had 5L removed with paracentesis yesterday. Watery stool this morning that had a blood streak. Hgb dropped to 7.0 so 1U PRBC was given. He does not feel well but denies nausea, vomiting, abd pain, CP or SOB. Pt is recovering from COVID no new issues overnight reported Review of Systems Review of Systems: No new issues Exam Narrative: Gen - chronically ill, thin male in NARD Chest -BL rhonchi CV - RRR S1/S2; Abd - softer, less distended. Ext - No pedal edema Ne
[2024-03-16] MEDS: cefTRIAXone 2 GM/NS 100 ML 2 GM/100 ML BAG IVPB (13:36)
[2024-03-16] MEDS: oxyCODONE HCL (*CRX) 5 MG TAB IR PO (13:38)
[2024-03-16] MEDS: ALBUTEROL SULFATE (*SP) AEROSOL 1 PUFF 2 PUFF INHALATION (20:40)
[2024-03-17] VITALS (8 sets, daily range): BP systolic 101–111; BP diastolic 62–77; PULSE 71–111; RESP 13–20; TEMP 36.1–36.9; O2SAT 99–100
[2024-03-17] MEDS: ALBUTEROL SULFATE (*SP) AEROSOL 1 PUFF 2 PUFF INHALATION ×4 (02:56→20:56)
[2024-03-17] MEDS: FLUTICASONE/SALMETEROL 115-21 MCG INHALER 1 PUFF 2 PUFF INHALATION ×2 (07:41→20:59)
[2024-03-17 08:30] LABS: Hematocrit 31.9 % (42.0-52.0); Hemoglobin 10.5 g/dL (14.0-18.0); Immature Platelet Fraction Pct 11.3 % (0.9-11.2); Mean Corpuscular HGB Conc 32.9 g/dl (32-36); Mean Corpuscular Hemoglobin 31.9 pg (26-34); Mean Platelet Volume 12.6 fl (7.4-10.4); Red Blood Count 3.29 M/mm3 (4.6-6.20); Red Cell Distribution Width 17.3 % (11.5-14.5); White Blood Count 4.9 K/mm3 (4.5-10.0)
[2024-03-17 08:34] LABS: Platelet Count Result 25 k/mm3 (150-375)
[2024-03-17 08:39] LABS: Anion Gap 11 mmol/L (4-12); Blood Urea Nitrogen 22 mg/dL (9-20); Calcium 8.8 mg/dL (8.4-10.2); Carbon Dioxide 22 mmol/L (22-30); Chloride 98 mmol/L (98-107); Estimated CRCL calculation 66 ml/min; Estimated Glomerular Filt Rate > 60; Glucose 92 mg/dL (65-110); Potassium 4.1 mmol/L (3.4-5.0); Sodium 131 mmol/L (137-145)
[2024-03-17] MEDS: FUROSEMIDE 20 MG TABLET PO (09:34)
[2024-03-17] MEDS: GABAPENTIN 300 MG CAPSULE PO ×3 (09:34→17:54)
[2024-03-17] MEDS: BACLOFEN 5 MG TABLET PO ×3 (09:34→17:54)
[2024-03-17] MEDS: THIAMINE HCL 100 MG TABLET PO (09:34)
[2024-03-17] MEDS: cefTRIAXone 2 GM/NS 100 ML 2 GM/100 ML BAG IVPB (09:34)
[2024-03-17] MEDS: SPIRONOLACTONE 50 MG TABLET PO (09:34)
[2024-03-17] MEDS: MULTIVITAMINS THERAPEUTIC TAB (*BKC) 1 TABLET PO (09:34)
[2024-03-17] MEDS: SODIUM BICARBONATE TAB 650 MG TABLET PO (09:34)
[2024-03-17] MEDS: LACTULOSE 20 GM/30 ML UDC 10 GM PO (09:34)
[2024-03-17] MEDS: LIDOCAINE 5% PATCH 2 PATCH TOPICAL (09:35)
--- NOTE | 2024-03-17 11:19 | PCNFU ---
Nutrition Follow-Up Complete: Inadequate oral intake related to NPO status as evidenced by need for paracentesis Goal: Adequate PO intake at least 75% meals when diet is advanced Patient is progressing towards goal. We will continue current goal. Pt current nutrition is Heart Healthy with Ensure Compact BID. Last recorded weight is 60.1 kg from 67.5 kg on admit. Paracentesis noted. Bowel Motility: +BM reported 03/15 Labs Reviewed:BUN 22, Na 131, Hct 31.9,Hgb 10.5 Meds Noted: MVI, Thiamine, Lactulose, Lasix, Rocephin Skin: WNL Additional Notes: Patient is COVID+, spoke with nursing today regarding oral intake. Breakfast eating > 75% of meal. Lunch and Dinner meals limited intake. Patient is drinking Ensure Compact, providing an additional 220 kcal and 9 gm protein. 03/15-noted paracentesis removing 5 Liters. Agree with diet orders. Monitoring diet advancement, intakes, weights, labs, plan of care Follow up in 5 days
--- NOTE | 2024-03-17 13:22 | PCPTNOTE ---
Patient refused treatment this session. Patient more confused. Educated patient on the benefits and importance of therapy, patient continued to refuse to participate with PT.
--- NOTE | 2024-03-17 14:28 | PM.IMPN ---
Progress Note: A&P Assessment and Plan (1) COPD exacerbation: Code(s): J44.1 - Chronic obstructive pulmonary disease with (acute) exacerbation Status: Acute Assessment and Plan: Patient has COPD exacerbation due to COVID and continued tobacco use. Patient reported little to no relief with home inhalers. Improved breathing with hour long albuterol provided in ER. He has COVID and was started on Decadron. He is high risk for decompensation due to his cirrhosis, COPD He has not required oxygen and dexamethasone may be associates with worse outcomes so this was stopped. Wheezing is minimal. Continue scheduled nebulizers. He remains on room air. Continue supportive care (2) Altered mental status: Code(s): R41.82 - Altered mental status, unspecified Status: Acute Assessment and Plan: Patient is more awake, alert and oriented. ABG 7.43/21/[address] brai showing no acute process Paracentesis fluid not consistent with SBP but Gram stain positive BCx NGTD. Ammonia 55 Suspect AMS related to hepatic encephalopathy possibly triggered by ?SBP. Hyperammonemia treated with lactulose. Ammonia level better and mental status better PT/OT. Increase activity. rpt ammonia levels pt appears confused today (3) COVID: Code(s): U07.1 - COVID-19 Status: Acute Assessment and Plan: Remdesivir is recommended for high risk patient not on oxygen but held since he already has lymphopenia and prolonged INR and Pt Pt is on iv rocephin (4) Cirrhosis of liver with ascites: Qualifiers: Hepatic cirrhosis type: unspecified hepatic cirrhosis Qualified Code(s): K74.60 - Unspecified cirrhosis of liver; R18.8 - Other ascites Code(s): K74.60 - Unspecified cirrhosis of liver; R18.8 - Other ascites Status: Chronic Assessment and Plan: Patient with cirrhosis and ascites. Patient probably with hepatic encephalopathy. Ammonia level elevated at 55. lactulose increased and ammonia<9 Paracentesis with 5L removed. pre-treated with Albumin 4000 RBC, 47 WBC with 79% macrophages. Gram stain today showing few WBC and few Gram positive cocci. Cx pending. rocephin started iv (5) Hyperammonemia: Code(s): E72.20 - Disorder of urea cycle metabolism, unspecified Status: Acute Assessment and Plan: As above. (6) Hyponatremia: Code(s): E87.1 - Hypo-osmolality and hyponatremia Status: Acute Assessment and Plan: Sodium 125 on admission.today sodium is 131 (7) Continuous dependence on cigarette smoking: Code(s): F17.210 - Nicotine dependence, cigarettes, uncomplicated Status: Acute Assessment and Plan: Educate about the benefits of smoking cessation Plan SHARIFA - Cr 1.3 on admission but improved with treatment down to 0.8. Follow. Metabolic non-gap acidosis - resolved dc oral bicarb rpt bmp and ammonia levels Leukopenia - Transient and probably related to the cirrhosis continue to monitor in hospital TCP - plt count low chronically and could be worse related to COVID. Stable, Continue to monitor Normocytic Anemia - chronic from the liver failure. hgb 7.0 so 1U PRBC ordered. hb is 7.8 rpt labs Subjective Date/time seen: 03/17/24 14:28 Interval history: 68yo male with COPD, cirrhosis with recurrent ascites and chronic tobacco use who presented to the ER from home with approximately 5 days of increasing shortness of breath. Had 5L removed with paracentesis yesterday. Watery stool this morning that had a blood streak. Hgb dropped to 7.0 so 1U PRBC was given. He does not feel well but denies nausea, vomiting, abd pain, CP or SOB. 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
[2024-03-17] MEDS: QUEtiapine FUMARATE 25 MG TABLET PO (20:46)
[2024-03-18] VITALS (10 sets, daily range): BP systolic 91–134; BP diastolic 62–80; PULSE 68–103; RESP 12–20; TEMP 36.2–37; O2SAT 96–99
[2024-03-18] MEDS: ALBUTEROL SULFATE (*SP) AEROSOL 1 PUFF 2 PUFF INHALATION ×4 (02:45→20:23)
[2024-03-18 07:34] LABS: Hematocrit 27.4 % (42.0-52.0); Immature Platelet Fraction Pct 11.6 % (0.9-11.2); Mean Corpuscular HGB Conc 32.8 g/dl (32-36); Mean Corpuscular Hemoglobin 31.5 pg (26-34); Mean Corpuscular Volume 95.8 fl (80-100); Mean Platelet Volume 12.5 fl (7.4-10.4); Red Blood Count 2.86 M/mm3 (4.6-6.20); Red Cell Distribution Width 16.9 % (11.5-14.5); White Blood Count 4.3 K/mm3 (4.5-10.0)
[2024-03-18 07:42] LABS: Platelet Count Result 22 k/mm3 (150-375)
[2024-03-18 07:44] LABS: Ammonia 15 umol/L (9-30)
[2024-03-18 07:51] LABS: Anion Gap 9 mmol/L (4-12); Blood Urea Nitrogen 25 mg/dL (9-20); Calcium 8.2 mg/dL (8.4-10.2); Carbon Dioxide 22 mmol/L (22-30); Chloride 96 mmol/L (98-107); Estimated CRCL calculation 82 ml/min; Estimated Glomerular Filt Rate > 60; Glucose 100 mg/dL (65-110); Potassium 3.8 mmol/L (3.4-5.0); Sodium 127 mmol/L (137-145)
[2024-03-18] MEDS: FLUTICASONE/SALMETEROL 115-21 MCG INHALER 1 PUFF 2 PUFF INHALATION ×2 (08:24→20:23)
[2024-03-18] MEDS: FUROSEMIDE 20 MG TABLET PO (09:30)
[2024-03-18] MEDS: MULTIVITAMINS THERAPEUTIC TAB (*BKC) 1 TABLET PO (09:30)
[2024-03-18] MEDS: BACLOFEN 5 MG TABLET PO ×3 (09:30→17:16)
[2024-03-18] MEDS: THIAMINE HCL 100 MG TABLET PO (09:30)
[2024-03-18] MEDS: LACTULOSE 20 GM/30 ML UDC 10 GM PO (09:30)
[2024-03-18] MEDS: cefTRIAXone 2 GM/NS 100 ML 2 GM/100 ML BAG IVPB (09:30)
[2024-03-18] MEDS: SPIRONOLACTONE 50 MG TABLET PO (09:30)
[2024-03-18] MEDS: GABAPENTIN 300 MG CAPSULE PO ×3 (09:30→17:16)
[2024-03-18] MEDS: LIDOCAINE 5% PATCH 2 PATCH TOPICAL (09:31)
[2024-03-18] MEDS: oxyCODONE HCL (*CRX) 5 MG TAB IR PO (09:35)
--- NOTE | 2024-03-18 12:34 | PM.IMPN ---
Progress Note: A&P Assessment and Plan (1) COPD exacerbation: Code(s): J44.1 - Chronic obstructive pulmonary disease with (acute) exacerbation Status: Acute Assessment and Plan: Patient has COPD exacerbation due to COVID and continued tobacco use. Patient reported little to no relief with home inhalers. Improved breathing with hour long albuterol provided in ER. He has COVID and was started on Decadron. He is high risk for decompensation due to his cirrhosis, COPD He has not required oxygen and dexamethasone may be associates with worse outcomes so this was stopped. Wheezing is minimal. Continue scheduled nebulizers. He remains on room air. Continue supportive care Add mucinex Await improvement with respiratory symptoms and dc back home (2) Altered mental status: Code(s): R41.82 - Altered mental status, unspecified Status: Acute Assessment and Plan: Patient is more awake, alert and oriented. ABG 7.43/21/[address] brai showing no acute process Paracentesis fluid not consistent with SBP but Gram stain positive BCx NGTD. Ammonia 55 Suspect AMS related to hepatic encephalopathy possibly triggered by ?SBP. Hyperammonemia treated with lactulose. Ammonia level better and mental status better PT/OT. Increase activity. rpt ammonia levels is good (3) COVID: Code(s): U07.1 - COVID-19 Status: Acute Assessment and Plan: Remdesivir is recommended for high risk patient not on oxygen but held since he already has lymphopenia and prolonged INR and Pt Pt is on iv rocephin, inhaler and steroids mucinex added to regime (4) Cirrhosis of liver with ascites: Qualifiers: Hepatic cirrhosis type: unspecified hepatic cirrhosis Qualified Code(s): K74.60 - Unspecified cirrhosis of liver; R18.8 - Other ascites Code(s): K74.60 - Unspecified cirrhosis of liver; R18.8 - Other ascites Status: Chronic Assessment and Plan: Patient with cirrhosis and ascites. Patient probably with hepatic encephalopathy. Ammonia level elevated at 55. lactulose increased and ammonia<9 Paracentesis with 5L removed. pre-treated with Albumin 4000 RBC, 47 WBC with 79% macrophages. Gram stain today showing few WBC and few Gram positive cocci. BC negative to date rocephin started iv (5) Hyperammonemia: Code(s): E72.20 - Disorder of urea cycle metabolism, unspecified Status: Acute Assessment and Plan: As above. (6) Hyponatremia: Code(s): E87.1 - Hypo-osmolality and hyponatremia Status: Acute Assessment and Plan: Sodium 125 on admission.today sodium is 127 today (7) Continuous dependence on cigarette smoking: Code(s): F17.210 - Nicotine dependence, cigarettes, uncomplicated Status: Acute Assessment and Plan: Educate about the benefits of smoking cessation Plan SHARIFA - Cr 1.3 on admission but improved with treatment down to 0.8. Follow. Metabolic non-gap acidosis - resolved dc oral bicarb Leukopenia - Transient and probably related to the cirrhosis continue to monitor in hospital TCP - plt count low chronically and could be worse related to COVID. Stable, Continue to monitor, plts very low today at 22 Normocytic Anemia - chronic from the liver failure. hgb 7.0 so 1U PRBC ordered. hb is 10 after blood transfusion Subjective Date/time seen: 03/18/24 12:34 Interval history: 68yo male with COPD, cirrhosis with recurrent ascites and chronic tobacco use who presented to the ER from home with approximately 5 days of increasing shortness of breath. Had 5L removed with paracentesis yesterday. Watery stool this morning that had a blood streak. Hgb dropped to 7.0 so 1U PRBC was given. He does not feel well but denies nausea, vomiting, abd pain, CP or SOB. 03/16 Pt is recovering from COVID no new issues overnight reported 03/17 Pt appears confused and slightly agitated today awaiting impr
[2024-03-18] MEDS: guaiFENesin 12 HR 600 MG TABCR 1200 MG PO ×2 (13:55→20:34)
[2024-03-18] MEDS: QUEtiapine FUMARATE 25 MG TABLET PO (20:34)
[2024-03-19] VITALS (8 sets, daily range): BP systolic 99–125; BP diastolic 67–86; PULSE 83–97; RESP 12–18; TEMP 35.7–36.8; O2SAT 96–100
[2024-03-19] MEDS: ALBUTEROL SULFATE (*SP) AEROSOL 1 PUFF 2 PUFF INHALATION ×4 (02:18→20:50)
[2024-03-19 05:57] LABS: Hemoglobin 9.1 g/dL (14.0-18.0); Mean Corpuscular HGB Conc 33.7 g/dl (32-36); Mean Corpuscular Hemoglobin 32.2 pg (26-34); Mean Corpuscular Volume 95.4 fl (80-100); Mean Platelet Volume 11.7 fl (7.4-10.4); Red Blood Count 2.83 M/mm3 (4.6-6.20); Red Cell Distribution Width 16.9 % (11.5-14.5); White Blood Count 4.9 K/mm3 (4.5-10.0)
[2024-03-19 06:04] LABS: Platelet Count Result 24 k/mm3 (150-375)
[2024-03-19] MEDS: FLUTICASONE/SALMETEROL 115-21 MCG INHALER 1 PUFF 2 PUFF INHALATION ×2 (07:07→20:50)
--- NOTE | 2024-03-19 07:30 | PM.IMPN ---
Progress Note: A&P Assessment and Plan (1) COPD exacerbation: Code(s): J44.1 - Chronic obstructive pulmonary disease with (acute) exacerbation Status: Acute Assessment and Plan: Patient has COPD exacerbation due to COVID and continued tobacco use. Patient reported little to no relief with home inhalers. Improved breathing with hour long albuterol provided in ER. He has COVID and was started on Decadron. He is high risk for decompensation due to his cirrhosis, COPD He has not required oxygen and dexamethasone may be associates with worse outcomes so this was stopped. Wheezing is minimal. Continue scheduled nebulizers. He remains on room air. Continue supportive care Add mucinex Rather congested. Add CPT with VEST. He has a weak cough with poor effort. Continues with expiratory wheeze, ever slight. Nebs continue. COVID isolation ends 03/22 Await improvement with respiratory symptoms (2) Altered mental status: Code(s): R41.82 - Altered mental status, unspecified Status: Acute Assessment and Plan: Patient is more awake, alert and oriented. ABG 7.43/21/[address] brai showing no acute process Paracentesis fluid not consistent with SBP but Gram stain positive BCx NGTD. Ammonia 55 Suspect AMS related to hepatic encephalopathy possibly triggered by ?SBP. Hyperammonemia treated with lactulose. Ammonia level better and mental status better PT/OT. Increase activity. (3) COVID: Code(s): U07.1 - COVID-19 Status: Acute Assessment and Plan: Remdesivir is recommended for high risk patient not on oxygen but held since he already has lymphopenia and prolonged INR and Pt Pt is on iv Rocephin, inhaler and steroids Mucinex added to regime Added CPT Isolation until 03/22 (4) Cirrhosis of liver with ascites: Qualifiers: Hepatic cirrhosis type: unspecified hepatic cirrhosis Qualified Code(s): K74.60 - Unspecified cirrhosis of liver; R18.8 - Other ascites Code(s): K74.60 - Unspecified cirrhosis of liver; R18.8 - Other ascites Status: Chronic Assessment and Plan: Patient with cirrhosis and ascites. Patient probably with hepatic encephalopathy. Ammonia level elevated at 55. lactulose increased and ammonia<9 Paracentesis with 5L removed. pre-treated with Albumin 4000 RBC, 47 WBC with 79% macrophages. Gram stain today showing few WBC and few Gram positive cocci. BC negative to date Aerobic culture negative rocephin started iv (5) Hyperammonemia: Code(s): E72.20 - Disorder of urea cycle metabolism, unspecified Status: Acute Assessment and Plan: As above. (6) Hyponatremia: Code(s): E87.1 - Hypo-osmolality and hyponatremia Status: Acute Assessment and Plan: Sodium 125 on admission.today sodium is 127 today (7) Continuous dependence on cigarette smoking: Code(s): F17.210 - Nicotine dependence, cigarettes, uncomplicated Status: Acute Assessment and Plan: Educate about the benefits of smoking cessation Plan SHARIFA - Cr 1.3 on admission but improved with treatment down to 0.8. Follow. Metabolic non-gap acidosis - resolved dc oral bicarb Leukopenia - Transient and probably related to the cirrhosis continue to monitor in hospital TCP - plt count low chronically and could be worse related to COVID. Stable, Continue to monitor, plts very low today at 22 Normocytic Anemia - chronic from the liver failure. hgb 7.0 so 1U PRBC ordered. hb is 10 after blood transfusion Subjective Date/time seen: 03/19/24 07:30 Interval history: 68-year-old male with past medical history of COPD, cirrhosis with recurrent ascites and chronic tobacco use among other comorbidities who presented to the ER from home with approximately 5 days of increasing shortness of breath. 03/19: Patient is seen resting in bed and is drowsy. He will not open his eyes for me but answers question
[2024-03-19] MEDS: FUROSEMIDE 20 MG TABLET PO (08:40)
[2024-03-19] MEDS: MULTIVITAMINS THERAPEUTIC TAB (*BKC) 1 TABLET PO (08:40)
[2024-03-19] MEDS: SPIRONOLACTONE 50 MG TABLET PO (08:40)
[2024-03-19] MEDS: GABAPENTIN 300 MG CAPSULE PO ×3 (08:40→16:59)
[2024-03-19] MEDS: dexAMETHasone 4 MG TABLET PO (08:40)
[2024-03-19] MEDS: guaiFENesin 12 HR 600 MG TABCR 1200 MG PO ×2 (08:40→20:35)
[2024-03-19] MEDS: THIAMINE HCL 100 MG TABLET PO (08:40)
[2024-03-19] MEDS: BACLOFEN 5 MG TABLET PO ×3 (08:40→16:59)
[2024-03-19] MEDS: LACTULOSE 20 GM/30 ML UDC 10 GM PO (08:40)
[2024-03-19] MEDS: cefTRIAXone 2 GM/NS 100 ML 2 GM/100 ML BAG IVPB (08:41)
[2024-03-19] MEDS: QUEtiapine FUMARATE 25 MG TABLET PO (20:35)
[2024-03-20] VITALS (11 sets, daily range): BP systolic 102–123; BP diastolic 63–79; PULSE 67–89; RESP 16–18; TEMP 35.8–36.6; O2SAT 98–100
[2024-03-20] MEDS: ALBUTEROL SULFATE (*SP) AEROSOL 1 PUFF 2 PUFF INHALATION ×4 (02:29→20:42)
--- NOTE | 2024-03-20 07:03 | PM.IMPN ---
Progress Note: A&P Assessment and Plan (1) COPD exacerbation: Code(s): J44.1 - Chronic obstructive pulmonary disease with (acute) exacerbation Status: Acute Assessment and Plan: Patient has COPD exacerbation due to COVID and continued tobacco use. Patient reported little to no relief with home inhalers. Improved breathing with hour long albuterol provided in ER. He has COVID and was started on Dexamethasone. He is high risk for decompensation due to his cirrhosis, COPD Wheezing is minimal. Continue scheduled nebulizers. He remains on room air. Continue supportive care Add mucinex Rather congested. Add CPT with VEST. He has a weak cough with poor effort. Continues with expiratory wheeze, ever slight. Nebs continue. COVID isolation ends 03/22 Await improvement with respiratory symptoms (2) Altered mental status: Code(s): R41.82 - Altered mental status, unspecified Status: Acute Assessment and Plan: Patient is more awake, alert and oriented. ABG 7.43/21/[address] brain showing no acute process Paracentesis fluid not consistent with SBP but Gram stain positive BCx NGTD. Ammonia 55 Suspect AMS related to hepatic encephalopathy possibly triggered by ?SBP. Hyperammonemia treated with lactulose. Ammonia level better and mental status better PT/OT. Increase activity. (3) COVID: Code(s): U07.1 - COVID-19 Status: Acute Assessment and Plan: Remdesivir is recommended for high risk patient not on oxygen but held since he already has lymphopenia and prolonged INR and Pt Inhaler and steroids, Mucinex added to regime Added CPT Isolation until 03/22 (4) Cirrhosis of liver with ascites: Qualifiers: Hepatic cirrhosis type: unspecified hepatic cirrhosis Qualified Code(s): K74.60 - Unspecified cirrhosis of liver; R18.8 - Other ascites Code(s): K74.60 - Unspecified cirrhosis of liver; R18.8 - Other ascites Status: Chronic Assessment and Plan: Patient with cirrhosis and ascites. Patient probably with hepatic encephalopathy. Ammonia level elevated at 55. lactulose increased and ammonia<9 4000 RBC, 47 WBC with 79% macrophages. Gram stain today showing few WBC and few Gram positive cocci. BC negative to date Aerobic culture negative Rocephin day 5 of 5. Discontinue after today as he has completed therapy for suspected SBP. Last LVP was 03/14 with 5 L of fluid removed Hyponatremia 119 on am labs. Patient given albumin and repeat Na 121. Plan SHARIFA - Cr 1.3 on admission but improved with treatment down to 0.8. Follow. Metabolic non-gap acidosis - resolved dc oral bicarb Leukopenia - Transient and probably related to the cirrhosis continue to monitor in hospital TCP - plt count low chronically and could be worse related to COVID. Stable, Continue to monitor, plts very low today at 22 Normocytic Anemia - chronic from the liver failure. hgb 7.0 so 1U PRBC ordered. hb is 10 after blood transfusion Subjective Date/time seen: 03/20/24 07:03 Interval history: 68-year-old male with past medical history of COPD, cirrhosis with recurrent ascites and chronic tobacco use among other comorbidities who presented to the ER from home with approximately 5 days of increasing shortness of breath. 03/19: Patient is seen resting in bed and is drowsy. He will not open his eyes for me but answers questions appropriately. He says he feels short of breath and has a congested, weak cough that he reports is non-productive. He has a poor appetite, had a bowel movement today. He denies abdominal pain, nausea, or vomiting. 03/20: Patient is much more alert today and feeling better. He still has a congested cough but he is using his incentive spirometer appropriately. His abdomen is more distended and taut. Sodium was low today. He typically gets paracentesis every 2 weeks. Last paracentesis was 03/14 with 5 L removed. Review of Systems Review of Sys
[2024-03-20] MEDS: FLUTICASONE/SALMETEROL 115-21 MCG INHALER 1 PUFF 2 PUFF INHALATION ×2 (07:10→20:42)
[2024-03-20 08:23] LABS: Hematocrit 26.8 % (42.0-52.0); Hemoglobin 9.2 g/dL (14.0-18.0); Immature Granulocyte Absolute 0.02 K/mm3 (0.00-0.031); Immature Granulocyte Percent A 0.5 % (0-0.5); Immature Platelet Fraction Pct 16.8 % (0.9-11.2); Lymphocytes Absolute Auto 0.22 K/mm3 (0.9-3.2); Mean Corpuscular HGB Conc 34.3 g/dl (32-36); Mean Corpuscular Hemoglobin 31.9 pg (26-34); Mean Corpuscular Volume 93.1 fl (80-100); Mean Platelet Volume 11.9 fl (7.4-10.4); Monocytes Absolute Auto 0.6 K/mm3 (0.1-0.6); Neutrophils Absolute Auto 3.5 K/mm3 (1.3-6.7); Neutrophils Percent Auto 80.5 % (45.5-73.1); Platelet Count Result 27 k/mm3 (150-375); Red Blood Count 2.88 M/mm3 (4.6-6.20); Red Cell Distribution Width 16.3 % (11.5-14.5); White Blood Count 4.4 K/mm3 (4.5-10.0)
[2024-03-20 08:43] LABS: Alanine Aminotransferase 48 U/L (6-50); Albumin Level 2.9 g/dL (3.5-5.1); Alkaline Phosphatase 149 U/L (38-126); Anion Gap 8 mmol/L (4-12); Aspartate Amino Transferase 80 U/L (17-59); Bilirubin,Total 1.4 mg/dL (0.2-1.3); Blood Urea Nitrogen 31 mg/dL (9-20); Calcium 8.2 mg/dL (8.4-10.2); Carbon Dioxide 23 mmol/L (22-30); Chloride 88 mmol/L (98-107); Estimated CRCL calculation 82 ml/min; Estimated Glomerular Filt Rate > 60; Glucose 119 mg/dL (65-110); Potassium 4.4 mmol/L (3.4-5.0); Sodium 119 mmol/L (137-145)
[2024-03-20] MEDS: BACLOFEN 5 MG TABLET PO ×3 (09:40→17:07)
[2024-03-20] MEDS: GABAPENTIN 300 MG CAPSULE PO ×3 (09:42→17:07)
[2024-03-20] MEDS: dexAMETHasone 4 MG TABLET PO (09:42)
[2024-03-20] MEDS: guaiFENesin 12 HR 600 MG TABCR 1200 MG PO ×2 (09:42→20:14)
[2024-03-20] MEDS: cefTRIAXone 2 GM/NS 100 ML 2 GM/100 ML BAG IVPB (09:42)
[2024-03-20] MEDS: LACTULOSE 20 GM/30 ML UDC 10 GM PO (09:43)
[2024-03-20] MEDS: SPIRONOLACTONE 50 MG TABLET PO (09:44)
[2024-03-20] MEDS: MULTIVITAMINS THERAPEUTIC TAB (*BKC) 1 TABLET PO (09:44)
[2024-03-20] MEDS: THIAMINE HCL 100 MG TABLET PO (09:44)
[2024-03-20] MEDS: ALBUMIN HUMAN 25% 25 GM/100 ML 100 ML IVPB ×3 (10:54→23:10)
[2024-03-20 11:20] LABS: Sodium 121 mmol/L (137-145)
[2024-03-20 14:23] LABS: Sodium Urine Random < 5 meq/L
[2024-03-20] MEDS: QUEtiapine FUMARATE 25 MG TABLET PO (20:14)
[2024-03-21] VITALS (9 sets, daily range): BP systolic 95–123; BP diastolic 60–73; PULSE 79–97; RESP 16–20; TEMP 35.8–36.7; O2SAT 97–100
[2024-03-21 05:18] LABS: Basophils Percent Auto 0.2 % (0.2-1.2); Hematocrit 23.7 % (42.0-52.0); Hemoglobin 8.2 g/dL (14.0-18.0); Immature Granulocyte Absolute 0.03 K/mm3 (0.00-0.031); Immature Granulocyte Percent A 0.6 % (0-0.5); Immature Platelet Fraction Pct 17.7 % (0.9-11.2); Lymphocytes Absolute Auto 0.18 K/mm3 (0.9-3.2); Lymphocytes Percent Auto 3.3 % (18.3-44.2); Mean Corpuscular HGB Conc 34.6 g/dl (32-36); Mean Corpuscular Hemoglobin 31.9 pg (26-34); Mean Corpuscular Volume 92.2 fl (80-100); Mean Platelet Volume 12.6 fl (7.4-10.4); Monocytes Absolute Auto 0.6 K/mm3 (0.1-0.6); Monocytes Percent Auto 10.8 % (2.6-8.5); Neutrophils Absolute Auto 4.6 K/mm3 (1.3-6.7); Neutrophils Percent Auto 85.1 % (45.5-73.1); Platelet Count Result 27 k/mm3 (150-375); Red Blood Count 2.57 M/mm3 (4.6-6.20); White Blood Count 5.5 K/mm3 (4.5-10.0)
[2024-03-21 05:30] LABS: Alanine Aminotransferase 48 U/L (6-50); Albumin Level 3.4 g/dL (3.5-5.1); Alkaline Phosphatase 129 U/L (38-126); Anion Gap 12 mmol/L (4-12); Aspartate Amino Transferase 73 U/L (17-59); Bilirubin,Total 1.3 mg/dL (0.2-1.3); Blood Urea Nitrogen 31 mg/dL (9-20); Calcium 8.8 mg/dL (8.4-10.2); Carbon Dioxide 22 mmol/L (22-30); Chloride 90 mmol/L (98-107); Estimated CRCL calculation 82 ml/min; Estimated Glomerular Filt Rate > 60; Glucose 128 mg/dL (65-110); Magnesium 1.6 mg/dL (1.6-2.3); Potassium 4.5 mmol/L (3.4-5.0); Sodium 124 mmol/L (137-145)
[2024-03-21 05:36] LABS: Prothrombin Time 22.8 Seconds (11.1-14.7)
[2024-03-21] MEDS: ALBUMIN HUMAN 25% 25 GM/100 ML 100 ML IVPB ×3 (05:41→17:21)
--- NOTE | 2024-03-21 07:02 | PM.IMPN ---
Progress Note: A&P Assessment and Plan (1) COPD exacerbation: Code(s): J44.1 - Chronic obstructive pulmonary disease with (acute) exacerbation Status: Acute Assessment and Plan: Patient has COPD exacerbation due to COVID and continued tobacco use. Patient reported little to no relief with home inhalers. Improved breathing with hour long albuterol provided in ER. He has COVID and was started on Dexamethasone. He is high risk for decompensation due to his cirrhosis, COPD Wheezing is minimal. Continue scheduled nebulizers. He remains on room air. Continue supportive care Add mucinex Rather congested. Add CPT with VEST. He has a weak cough with poor effort. Continues with expiratory wheeze, ever slight. Nebs continue. COVID isolation ends 03/22 Await improvement with respiratory symptoms (2) Altered mental status: Code(s): R41.82 - Altered mental status, unspecified Status: Acute Assessment and Plan: Patient is more awake, alert and oriented. ABG 7.43/21/[address] brain showing no acute process Paracentesis fluid not consistent with SBP but Gram stain positive BCx NGTD. Ammonia 55 Suspect AMS related to hepatic encephalopathy possibly triggered by ?SBP. Hyperammonemia treated with lactulose. Ammonia level better and mental status better PT/OT. Increase activity. (3) COVID: Code(s): U07.1 - COVID-19 Status: Acute Assessment and Plan: Remdesivir is recommended for high risk patient not on oxygen but held since he already has lymphopenia and prolonged INR and Pt Inhaler and steroids, Mucinex added to regime Added CPT Isolation until 03/22 (4) Cirrhosis of liver with ascites: Qualifiers: Hepatic cirrhosis type: unspecified hepatic cirrhosis Qualified Code(s): K74.60 - Unspecified cirrhosis of liver; R18.8 - Other ascites Code(s): K74.60 - Unspecified cirrhosis of liver; R18.8 - Other ascites Status: Chronic Assessment and Plan: Patient with cirrhosis and ascites. Patient probably with hepatic encephalopathy. Ammonia level elevated at 55. lactulose increased and ammonia<9 4000 RBC, 47 WBC with 79% macrophages. Gram stain today showing few WBC and few Gram positive cocci. BC negative to date Aerobic culture negative Rocephin day 5 of 5. Discontinue after today as he has completed therapy for suspected SBP. Last LVP was 03/14 with 5 L of fluid removed Hyponatremia 119 on am labs. Patient given albumin and repeat Na 121. Slightly more confused today. Increase lactulose to 20 gram TID. Titrate for 3-5 bowel movements a day. Plan SHARIFA - Cr 1.3 on admission but improved with treatment down to 0.8. Follow. Metabolic non-gap acidosis - resolved dc oral bicarb Leukopenia - Transient and probably related to the cirrhosis continue to monitor in hospital TCP - plt count low chronically and could be worse related to COVID. Stable, Continue to monitor, plts very low today at 22 Normocytic Anemia - chronic from the liver failure. hgb 7.0 so 1U PRBC ordered. hb is 10 after blood transfusion Planning for discharge to [facility] tomorrow as today is his last day of COVID isolation. Subjective Date/time seen: 03/21/24 07:02 Interval history: 68-year-old male with past medical history of COPD, cirrhosis with recurrent ascites and chronic tobacco use among other comorbidities who presented to the ER from home with approximately 5 days of increasing shortness of breath. 03/19: Patient is seen resting in bed and is drowsy. He will not open his eyes for me but answers questions appropriately. He says he feels short of breath and has a congested, weak cough that he reports is non-productive. He has a poor appetite, had a bowel movement today. He denies abdominal pain, nausea, or vomiting. 03/20: Patient is much more alert today and feeling better. He still has a congested cough but he is using his incentive spirometer a
[2024-03-21] MEDS: ALBUTEROL SULFATE (*SP) AEROSOL 1 PUFF 2 PUFF INHALATION ×4 (07:30→20:49)
[2024-03-21] MEDS: FLUTICASONE/SALMETEROL 115-21 MCG INHALER 1 PUFF 2 PUFF INHALATION ×2 (07:33→20:49)
[2024-03-21] MEDS: BACLOFEN 5 MG TABLET PO ×3 (09:37→17:14)
[2024-03-21] MEDS: dexAMETHasone 4 MG TABLET PO (09:37)
[2024-03-21] MEDS: GABAPENTIN 300 MG CAPSULE PO ×3 (09:38→17:14)
[2024-03-21] MEDS: guaiFENesin 12 HR 600 MG TABCR 1200 MG PO ×2 (09:38→20:05)
[2024-03-21] MEDS: LACTULOSE 20 GM/30 ML UDC 10 GM PO (09:39)
[2024-03-21] MEDS: THIAMINE HCL 100 MG TABLET PO (09:40)
[2024-03-21] MEDS: MULTIVITAMINS THERAPEUTIC TAB (*BKC) 1 TABLET PO (09:40)
--- NOTE | 2024-03-21 10:04 | PCPTNOTE ---
Patient refused treatment this session. Patient reported he was still working on breakfast (patient was done with breakfast and had pudding cup) and did not want to work with PT at this time. Patient asked PT to come back in 20 minutes. Educated patient on the importance of therapy and working with PT, patient continued to refuse and asked PT to come back in 20 minutes.
[2024-03-21] MEDS: LACTULOSE 20 GM/30 ML UDC PO (12:15)
--- NOTE | 2024-03-21 18:15 | PC.NURSE ---
Dr Partida notified that patient had large dark red loose stool. Vital signs stable. New orders received.
[2024-03-21 18:32] LABS: IFOB Positive Control Positive; Immunochemical Fecal Occult Bl Positive (N)
[2024-03-21] MEDS: PANTOPRAZOLE SODIUM IV 40 MG VIAL IV PUSH (18:44)
[2024-03-21 18:46] LABS: Hemoglobin 7.9 g/dL (14.0-18.0)
[2024-03-21] MEDS: QUEtiapine FUMARATE 25 MG TABLET PO (20:05)
[2024-03-21] MEDS: traZODone HCL 50 MG TABLET PO (23:50)
[2024-03-22] VITALS (16 sets, daily range): BP systolic 106–123; BP diastolic 60–70; PULSE 63–99; RESP 16–21; TEMP 36.2–36.6; O2SAT 73–100
[2024-03-22 00:43] LABS: Hematocrit 21.7 % (42.0-52.0); Hemoglobin 7.5 g/dL (14.0-18.0)
[2024-03-22] MEDS: ALBUTEROL SULFATE (*SP) AEROSOL 1 PUFF 2 PUFF INHALATION ×4 (02:19→20:45)
[2024-03-22 05:23] LABS: Hemoglobin 7.1 g/dL (14.0-18.0); Immature Platelet Fraction Pct 19.1 % (0.9-11.2); Mean Corpuscular HGB Conc 34.3 g/dl (32-36); Mean Corpuscular Hemoglobin 32.4 pg (26-34); Mean Corpuscular Volume 94.5 fl (80-100); Mean Platelet Volume 12.1 fl (7.4-10.4); Red Blood Count 2.19 M/mm3 (4.6-6.20); Red Cell Distribution Width 16.5 % (11.5-14.5); White Blood Count 5.8 K/mm3 (4.5-10.0)
[2024-03-22 05:26] LABS: Hematocrit 20.7 % (42.0-52.0); Platelet Count Result 25 k/mm3 (150-375)
[2024-03-22 05:30] LABS: Alanine Aminotransferase 62 U/L (6-50); Albumin Level 3.2 g/dL (3.5-5.1); Alkaline Phosphatase 116 U/L (38-126); Anion Gap 9 mmol/L (4-12); Aspartate Amino Transferase 86 U/L (17-59); Bilirubin,Total 1.3 mg/dL (0.2-1.3); Blood Urea Nitrogen 34 mg/dL (9-20); Carbon Dioxide 25 mmol/L (22-30); Chloride 93 mmol/L (98-107); Estimated CRCL calculation 82 ml/min; Estimated Glomerular Filt Rate > 60; Glucose 146 mg/dL (65-110); Potassium 4.6 mmol/L (3.4-5.0); Sodium 127 mmol/L (137-145)
--- NOTE | 2024-03-22 07:34 | PM.IMPN ---
Progress Note: A&P Assessment and Plan (1) Anemia: Code(s): D64.9 - Anemia, unspecified Status: Acute Assessment and Plan: Chronic anemia but recently has been downtrending. Hemoglobin on 03/17 was 10.5 g/dL. Patient started having bright red blood per rectum on 03/21. Hemoglobin was trended overnight and is 7.1 g/dL this morning. I spoke with Ning Levin with GI and Dr Guerra is not in house so the patient will need to transfer to [facility] for further GI workup and likely scope. Started on Protonix IVP BID and octreotide gtt. Unknown history of varices. Receiving 1 unit pRBC now Continue to trend hemoglobin q 6 hours Spoke with [facility] Dr. Griffin who has accepted the transfer but bed availability is limited and ETA is 3-5 days. Patient had similar picture during a stay at [facility] 02/21-02/23 of this month and GI ended up saying it was hemorrhoidal bleeding. Placed on Rocephin IV 1 gram for SBP prophylaxis in setting of possible GI bleed. This was recommended by ID pharmacist for another 2 days. Patient has previously received 5 days of Rocephin. Transfer for IMU for closer monitoring (2) COPD exacerbation: Code(s): J44.1 - Chronic obstructive pulmonary disease with (acute) exacerbation Status: Acute Assessment and Plan: Patient has COPD exacerbation due to COVID and continued tobacco use. Patient reported little to no relief with home inhalers. Improved breathing with hour long albuterol provided in ER. He has COVID and was started on Dexamethasone. He is high risk for decompensation due to his cirrhosis, COPD Wheezing is minimal. Continue scheduled nebulizers. He remains on room air. Continue supportive care Add mucinex Rather congested. Add CPT with VEST. He has a weak cough with poor effort. Continues with expiratory wheeze, ever slight. Nebs continue. COVID isolation ended 03/22 Respiratory symptoms have been improving (3) Altered mental status: Code(s): R41.82 - Altered mental status, unspecified Status: Acute Assessment and Plan: Patient is more awake, alert and oriented. ABG 7.43/21/[address] brain showing no acute process Paracentesis fluid not consistent with SBP but Gram stain positive BCx NGTD. Ammonia 55 Suspect AMS related to hepatic encephalopathy possibly triggered by ?SBP. Hyperammonemia treated with lactulose. Ammonia level better and mental status better PT/OT. Increase activity. (4) COVID: Code(s): U07.1 - COVID-19 Status: Acute Assessment and Plan: Remdesivir is recommended for high risk patient not on oxygen but held since he already has lymphopenia and prolonged INR and Pt Inhaler and steroids, Mucinex added to regime Added CPT Off isolation Breathing is much improved. Still coughing up sputum but he does not feel short of breath in terms of congestion. His respiratory complaints are now just from his ascites and inability to take a deep breath. (5) Cirrhosis of liver with ascites: Qualifiers: Hepatic cirrhosis type: unspecified hepatic cirrhosis Qualified Code(s): K74.60 - Unspecified cirrhosis of liver; R18.8 - Other ascites Code(s): K74.60 - Unspecified cirrhosis of liver; R18.8 - Other ascites Status: Chronic Assessment and Plan: Patient with cirrhosis and ascites. Patient probably with hepatic encephalopathy. Ammonia level elevated at 55. lactulose increased and ammonia<9 4000 RBC, 47 WBC with 79% macrophages. Gram stain today showing few WBC and few Gram positive cocci. BC negative to date Aerobic culture negative Rocephin to continue for 2 more days as prophylaxis for SBP given possible GI bleed. Last LVP was 03/14 with 5 L of fluid removed. He is wanting an LVP soon or at least before he discharges. Na 127 today Less confused today with increased doses of lactulose. Titrate for bowel movements of 3-5 a day. Plan SHARIFA - Cr 1.3 on admission but improved with
[2024-03-22] MEDS: FLUTICASONE/SALMETEROL 115-21 MCG INHALER 1 PUFF 2 PUFF INHALATION ×2 (07:57→20:45)
[2024-03-22] MEDS: GABAPENTIN 300 MG CAPSULE PO ×3 (09:11→17:20)
[2024-03-22] MEDS: FUROSEMIDE 40 MG TABLET PO (09:11)
[2024-03-22] MEDS: guaiFENesin 12 HR 600 MG TABCR 1200 MG PO ×2 (09:11→21:14)
[2024-03-22] MEDS: dexAMETHasone 4 MG TABLET PO (09:11)
[2024-03-22] MEDS: BACLOFEN 5 MG TABLET PO ×3 (09:11→17:20)
[2024-03-22] MEDS: THIAMINE HCL 100 MG TABLET PO (09:12)
[2024-03-22] MEDS: LACTULOSE 20 GM/30 ML UDC PO ×3 (09:12→17:20)
[2024-03-22] MEDS: MULTIVITAMINS THERAPEUTIC TAB (*BKC) 1 TABLET PO (09:12)
[2024-03-22] MEDS: SPIRONOLACTONE 50 MG TABLET PO (09:12)
[2024-03-22] MEDS: PANTOPRAZOLE SODIUM IV 80 MG in SODIUM CHLORIDE 0.9% IV 500 ML 50 MG IV CONT (09:21)
--- NOTE | 2024-03-22 09:40 | PC.NURSE ---
Pt transferred from [address] [place] [address] via bed accompanied by tech and Nurse. Pt acclimated to room set up.
--- NOTE | 2024-03-22 09:58 | PCNFU ---
Nutrition Follow-Up Complete: Inadequate oral intake related to NPO status as evidenced by need for paracentesis Goal:A[place] PO intake at least 75% meals Pt progressing towards goal. Continue with same goal. Pt current nutrition is Heart healthy, Ensure compact BID, 1000ml Fluid restriction in place. Nutrition recommendation: Continue with plan of care. Last recorded weight is 66.7 kg. Bowel Motility: +BM 03/18 Labs Reviewed: HCt:20.7, alb:3.2, NA:127 Meds Noted: lasiz, lactulose, MVI Skin: WNL Additional Notes: Pt continues on a heart healthy diet, intake improved to 50-75% at this time, Ensure compact BID in place for supplement. Encourage good po intake. Monitoring diet advancement, intakes, weights, labs, plan of care Follow up in 7 days
[2024-03-22] MEDS: TUBING, BLOOD PLUM PUMP TUBING 1 EACH XX (10:53)
[2024-03-22] MEDS: OCTREOTIDE ACETATE 500 MCG in SODIUM CHLORIDE 0.9% IV 99 ML 10 MCG IV CONT ×2 (12:46→21:14)
[2024-03-22] MEDS: SODIUM CHLORIDE 0.9% IV 250 ML 30 ML IV CONT (14:05)
[2024-03-22 16:32] LABS: Osmolality, Urine 305 mOsm/kg (50-1200)
[2024-03-22 16:58] LABS: Hematocrit 24.2 % (42.0-52.0); Hemoglobin 8.3 g/dL (14.0-18.0)
[2024-03-22 20:18] LABS: Hematocrit 25.8 % (42.0-52.0)
[2024-03-22] MEDS: PANTOPRAZOLE SODIUM IV 40 MG VIAL IV PUSH (21:14)
[2024-03-22] MEDS: QUEtiapine FUMARATE 25 MG TABLET PO (21:15)
[2024-03-22] MEDS: oxyCODONE HCL (*CRX) 5 MG TAB IR PO (23:39)
[2024-03-23] VITALS (39 sets, daily range): BP systolic 107–134; BP diastolic 53–88; PULSE 52–115; RESP 14–20; TEMP 34.9–36.9; O2SAT 98–100
[2024-03-23 01:16] LABS: Hematocrit 25.3 % (42.0-52.0); Hemoglobin 8.6 g/dL (14.0-18.0)
[2024-03-23] MEDS: ALBUTEROL SULFATE (*SP) AEROSOL 1 PUFF 2 PUFF INHALATION ×4 (03:16→20:47)
[2024-03-23 04:39] LABS: Basophils Percent Auto 0.1 % (0.2-1.2); Hematocrit 25.4 % (42.0-52.0); Hemoglobin 8.7 g/dL (14.0-18.0); Immature Granulocyte Absolute 0.04 K/mm3 (0.00-0.031); Immature Granulocyte Percent A 0.5 % (0-0.5); Immature Platelet Fraction Pct 20.2 % (0.9-11.2); Lymphocytes Absolute Auto 0.19 K/mm3 (0.9-3.2); Lymphocytes Percent Auto 2.5 % (18.3-44.2); Mean Corpuscular HGB Conc 34.3 g/dl (32-36); Mean Corpuscular Hemoglobin 31.9 pg (26-34); Monocytes Absolute Auto 0.6 K/mm3 (0.1-0.6); Monocytes Percent Auto 8.1 % (2.6-8.5); Neutrophils Absolute Auto 6.7 K/mm3 (1.3-6.7); Neutrophils Percent Auto 88.8 % (45.5-73.1); Platelet Count Result 28 k/mm3 (150-375); Red Blood Count 2.73 M/mm3 (4.6-6.20); Red Cell Distribution Width 17.4 % (11.5-14.5); White Blood Count 7.6 K/mm3 (4.5-10.0)
[2024-03-23 04:47] LABS: INR 1.9
[2024-03-23 04:51] LABS: Alanine Aminotransferase 65 U/L (6-50); Albumin Level 3.3 g/dL (3.5-5.1); Alkaline Phosphatase 114 U/L (38-126); Anion Gap 10 mmol/L (4-12); Aspartate Amino Transferase 58 U/L (17-59); Bilirubin,Total 2.6 mg/dL (0.2-1.3); Blood Urea Nitrogen 28 mg/dL (9-20); Calcium 8.9 mg/dL (8.4-10.2); Carbon Dioxide 24 mmol/L (22-30); Chloride 93 mmol/L (98-107); Estimated CRCL calculation 82 ml/min; Estimated Glomerular Filt Rate > 60; Glucose 143 mg/dL (65-110); Magnesium 1.7 mg/dL (1.6-2.3); Potassium 4.2 mmol/L (3.4-5.0); Sodium 127 mmol/L (137-145)
[2024-03-23 05:00] LABS: Platelet Estimate Decreased (Adequate)
[2024-03-23 05:01] LABS: Hypochromasia 1+; Ovalocytes 1+; Schistocytes None Seen
[2024-03-23] MEDS: OCTREOTIDE ACETATE 500 MCG in SODIUM CHLORIDE 0.9% IV 99 ML 10 MCG IV CONT (05:40)
[2024-03-23] MEDS: FLUTICASONE/SALMETEROL 115-21 MCG INHALER 1 PUFF 2 PUFF INHALATION ×2 (07:03→20:48)
[2024-03-23] MEDS: LIDOCAINE 5% PATCH 2 PATCH TOPICAL (09:31)
[2024-03-23] MEDS: GABAPENTIN 300 MG CAPSULE PO ×2 (09:31→12:05)
[2024-03-23] MEDS: FUROSEMIDE 40 MG TABLET PO (09:31)
[2024-03-23] MEDS: BACLOFEN 5 MG TABLET PO ×3 (09:31→16:51)
[2024-03-23] MEDS: MULTIVITAMINS THERAPEUTIC TAB (*BKC) 1 TABLET PO (09:31)
[2024-03-23] MEDS: guaiFENesin 12 HR 600 MG TABCR 1200 MG PO ×2 (09:31→19:59)
[2024-03-23] MEDS: THIAMINE HCL 100 MG TABLET PO (09:31)
[2024-03-23] MEDS: SPIRONOLACTONE 50 MG TABLET PO (09:35)
[2024-03-23] MEDS: PANTOPRAZOLE SODIUM IV 40 MG VIAL IV PUSH ×2 (09:35→19:59)
--- NOTE | 2024-03-23 09:40 | PM.IMPN ---
Progress Note: A&P Assessment and Plan (1) Anemia: Code(s): D64.9 - Anemia, unspecified Status: Acute (2) Altered mental status: Code(s): R41.82 - Altered mental status, unspecified Status: Acute (3) Hyperammonemia: Code(s): E72.20 - Disorder of urea cycle metabolism, unspecified Status: Acute (4) Thrombocytopenia: Code(s): D69.6 - Thrombocytopenia, unspecified Status: Acute (5) Continuous dependence on cigarette smoking: Code(s): F17.210 - Nicotine dependence, cigarettes, uncomplicated Status: Acute (6) COVID: Code(s): U07.1 - COVID-19 Status: Acute (7) Cirrhosis of liver: Qualifiers: Ascites presence: with ascites Hepatic cirrhosis type: unspecified hepatic cirrhosis Qualified Code(s): K74.60 - Unspecified cirrhosis of liver; R18.8 - Other ascites Code(s): K74.60 - Unspecified cirrhosis of liver Status: Acute (8) COPD exacerbation: Code(s): J44.1 - Chronic obstructive pulmonary disease with (acute) exacerbation Status: Acute Plan This is a 68-year-old male with PMH alcohol use disorder currently still abusing not a candidate for transplantation, alcoholic cirrhosis, hepatocellular carcinoma status post SBRT completed on September 07, [address] Conklin hepatology, hepatic encephalopathy, refractory ascites requiring large volume paracentesis q.2 weeks, portal hypertension, previously positive hepatitis C antibody screen, chronic thrombocytopenia, chronic normocytic anemia, hemorrhoids, chronic hyponatremia, cervical myelopathy status post C2-C7 cervical spinal fusion, malnutrition and chronic debility, acute otitis media left ear with rupture of tympanic membrane in 02/2024, asthma, umbilical hernia, tobacco abuse. Review of documentation review is admission to [facility] for shortness of breath diarrhea and worsening ascites. Large volume paracentesis performed. Patient discharged on 02/24/2024 to home. He presents again to [place] ER on 03/13 with a worsening acute on chronic dry cough. He denied fevers or ill contacts. His abdomen was progressively more distended than his last paracentesis 2 weeks prior, as expected. In the ER his blood pressures were found to be intermittently low but improved after 1 dose of IV albumin. Chest x-ray demonstrated markedly decreased lung volumes with possible interstitial opacities in the lower lung zones. He had a normal white count. Patient found to have COVID PCR positive. Patient has never had a COVID vaccine. Subsequently admitted for further treatment on 03/13/2024. # bright red blood per rectum # acute on chronic anemia # chronic thrombocytopenia -status: Acute on chronic -chronic component likely due to cirrhosis. He had an episode of rectal bleeding on 03/21 the hemoglobin is 7.1. Received 1 unit PRBC transfusion. Patient has been placed on the [facility] transfer list since 03/22 but they report 3-5 day wait. Since been started on Protonix IV b.i.d. and octreotide GTT. We currently do not have short order cook in house. Going to discontinue the octreotide GTT, the patient does not have hemoptysis and no history of varices. -started on Rocephin 1 g IV Q 24 hours for SBP prophylaxis. -on 03/23/2024 the patient has had 1 large BM which was described as pinkish by the nurse. Continue to monitor. Hemoglobin today 8.7. Does not appear to be exsanguinating. -in the setting of rectal bleeding and platelets in the 20s, transfuse 2 units platelets on 03/23. Daughter agrees this would be prudent. # alcoholic cirrhosis, history of positive hepatitis-C antibody, hepatocellular carcinoma, refractory ascites, portal hypertension # acute on chronic hepatic encephalopathy -status: Acute on chronic -patient had a ammonia level 55 on admission. He was administered lactulose and his mental status improved. -on 03/23 he is A&O x1 and very confused. Upon further questio
[2024-03-23] MEDS: rifAXIMin 550 MG TABLET PO ×2 (09:48→19:59)
[2024-03-23 10:34] LABS: Ammonia < 9 umol/L (9-30)
[2024-03-23] MEDS: SODIUM CHLORIDE 0.9% IV 250 ML 30 ML IV CONT (10:38)
[2024-03-23] MEDS: LACTULOSE 20 GM/30 ML UDC 30 GM PO ×2 (12:05→16:53)
--- NOTE | 2024-03-23 15:17 | PCPTNOTE ---
The patient treatment was not able to be completed on 03/23/2024 due to patient not appropriate for therapy at this time. Will plan to continue treatment per plan of care.
--- NOTE | 2024-03-23 15:39 | PC.NURSE ---
[id number] [phone] [id number] Simmons- informed of low core temp- Jennifer gibson
[2024-03-23] MEDS: QUEtiapine FUMARATE 25 MG TABLET PO (20:00)
[2024-03-24] VITALS (21 sets, daily range): BP systolic 101–122; BP diastolic 61–76; PULSE 83–132; RESP 18–24; TEMP 36.3–36.9; O2SAT 97–100
[2024-03-24] MEDS: ALBUTEROL SULFATE (*SP) AEROSOL 1 PUFF 2 PUFF INHALATION ×3 (02:48→13:54)
[2024-03-24 04:23] LABS: Hemoglobin 8.9 g/dL (14.0-18.0); Mean Corpuscular HGB Conc 34.2 g/dl (32-36); Mean Corpuscular Hemoglobin 32.2 pg (26-34); Mean Corpuscular Volume 94.2 fl (80-100); Mean Platelet Volume 11.7 fl (7.4-10.4); Platelet Count Result 94 k/mm3 (150-375); Red Blood Count 2.76 M/mm3 (4.6-6.20); Red Cell Distribution Width 17.4 % (11.5-14.5); White Blood Count 8.7 K/mm3 (4.5-10.0)
[2024-03-24 04:34] LABS: Ammonia < 9 umol/L (9-30); INR 1.7; Prothrombin Time 20.9 Seconds (11.1-14.7)
[2024-03-24 04:35] LABS: Partial Thromboplastin Time 34.4 Seconds (22.3-36.8)
[2024-03-24 04:40] LABS: Alanine Aminotransferase 71 U/L (6-50); Albumin Level 3.5 g/dL (3.5-5.1); Alkaline Phosphatase 146 U/L (38-126); Anion Gap 11 mmol/L (4-12); Aspartate Amino Transferase 95 U/L (17-59); Bilirubin,Total 2.4 mg/dL (0.2-1.3); Blood Urea Nitrogen 30 mg/dL (9-20); Calcium 8.7 mg/dL (8.4-10.2); Carbon Dioxide 21 mmol/L (22-30); Chloride 95 mmol/L (98-107); Estimated CRCL calculation 73 ml/min; Estimated Glomerular Filt Rate > 60; Glucose 159 mg/dL (65-110); Magnesium 1.7 mg/dL (1.6-2.3); Sodium 127 mmol/L (137-145)
[2024-03-24 04:56] LABS: Procalcitonin 0.2 ng/mL
[2024-03-24] MEDS: LIDOCAINE 5% PATCH 2 PATCH TOPICAL (08:06)
[2024-03-24] MEDS: LACTULOSE 20 GM/30 ML UDC 30 GM PO (08:07)
[2024-03-24] MEDS: BACLOFEN 5 MG TABLET PO ×3 (08:07→17:36)
[2024-03-24] MEDS: MULTIVITAMINS THERAPEUTIC TAB (*BKC) 1 TABLET PO (08:07)
[2024-03-24] MEDS: PANTOPRAZOLE SODIUM IV 40 MG VIAL IV PUSH (08:07)
[2024-03-24] MEDS: FUROSEMIDE 40 MG TABLET PO (08:07)
[2024-03-24] MEDS: THIAMINE HCL 100 MG TABLET PO (08:07)
[2024-03-24] MEDS: guaiFENesin 12 HR 600 MG TABCR 1200 MG PO ×2 (08:07→20:31)
[2024-03-24] MEDS: SPIRONOLACTONE 50 MG TABLET PO (08:07)
[2024-03-24] MEDS: rifAXIMin 550 MG TABLET PO ×2 (08:07→20:31)
[2024-03-24] MEDS: PHENYLEPH/MINERAL OIL/PETROLAT OINTMENT 57 GM 1 APPLIC RECTAL (08:12)
[2024-03-24] MEDS: FLUTICASONE/SALMETEROL 115-21 MCG INHALER 1 PUFF 2 PUFF INHALATION ×2 (08:23→19:59)
--- NOTE | 2024-03-24 08:35 | PM.IMPN ---
Progress Note: A&P Assessment and Plan (1) Anemia: Code(s): D64.9 - Anemia, unspecified Status: Acute (2) Altered mental status: Code(s): R41.82 - Altered mental status, unspecified Status: Acute (3) Hyperammonemia: Code(s): E72.20 - Disorder of urea cycle metabolism, unspecified Status: Acute (4) Thrombocytopenia: Code(s): D69.6 - Thrombocytopenia, unspecified Status: Acute (5) Continuous dependence on cigarette smoking: Code(s): F17.210 - Nicotine dependence, cigarettes, uncomplicated Status: Acute (6) COVID: Code(s): U07.1 - COVID-19 Status: Acute (7) Cirrhosis of liver: Qualifiers: Ascites presence: with ascites Hepatic cirrhosis type: unspecified hepatic cirrhosis Qualified Code(s): K74.60 - Unspecified cirrhosis of liver; R18.8 - Other ascites Code(s): K74.60 - Unspecified cirrhosis of liver Status: Acute (8) COPD exacerbation: Code(s): J44.1 - Chronic obstructive pulmonary disease with (acute) exacerbation Status: Acute Plan This is a 68-year-old male with PMH alcohol use disorder currently still abusing not a candidate for transplantation, alcoholic cirrhosis, hepatocellular carcinoma status post SBRT completed on September 07, [address] Conklin hepatology, hepatic encephalopathy, refractory ascites requiring large volume paracentesis q.2 weeks, portal hypertension, previously positive hepatitis C antibody screen, chronic thrombocytopenia, chronic normocytic anemia, hemorrhoids, chronic hyponatremia, cervical myelopathy status post C2-C7 cervical spinal fusion, malnutrition and chronic debility, acute otitis media left ear with rupture of tympanic membrane in 02/2024, asthma, umbilical hernia, tobacco abuse. Review of documentation review is admission to [facility] for shortness of breath diarrhea and worsening ascites. Large volume paracentesis performed. Patient discharged on 02/24/2024 to home. He presents again to [place] ER on 03/13 with a worsening acute on chronic dry cough. He denied fevers or ill contacts. His abdomen was progressively more distended than his last paracentesis 2 weeks prior, as expected. In the ER his blood pressures were found to be intermittently low but improved after 1 dose of IV albumin. Chest x-ray demonstrated markedly decreased lung volumes with possible interstitial opacities in the lower lung zones. He had a normal white count. Patient found to have COVID PCR positive. Patient has never had a COVID vaccine. Subsequently admitted for further treatment on 03/13/2024. March 24 update: Left a message with the patient's daughter Brina. Will update her if she calls back. Hemoglobin stable at 8.9. Platelets 94 status post 2 units platelets. His temperature is now normal thermic, unclear why he was hypothermic yesterday. He had 5 BMs yesterday with 1 streaky blood. Suspect it is internal hemorrhoids. His hepatic encephalopathy is improved. Will bring his lactulose back down to 20 g t.i.d.. Ammonia level normal today. Continue rifaximin as well. Abdomen is more distended today. Patient feels he needs a paracentesis, agree with this. Anticipate paracentesis today, will order. Gabapentin currently on hold, that can cause brain fog as well. # bright red blood per rectum # acute on chronic anemia # chronic thrombocytopenia -status: Acute on chronic -chronic component likely due to cirrhosis. He had an episode of rectal bleeding on 03/21 the hemoglobin is 7.1. Received 1 unit PRBC transfusion. Patient has been placed on the [facility] transfer list since 03/22 but they report 3-5 day wait. Since been started on Protonix IV b.i.d. and octreotide GTT. We currently do not have substance abuse technician in house. Going to discontinue the octreotide GTT, the patient does not have hemoptysis and no history of varices. -started on Rocephin 1 g IV Q 24 hours for SBP prophyla
--- NOTE | 2024-03-24 13:38 | PC.NURSE ---
Dr. Simmons aware of multiple diarrhea episodes. Okay to hold lactulose at 1300 and 1500.
--- NOTE | 2024-03-24 14:25 | PC.NURSE ---
HR sustained 130s. Pt continuously coughing. Scheduled inhaler given with no effect. Dr. Smimons made aware. New orders noted for scheduled nebs.
[2024-03-24] MEDS: IPRATROPIUM BR 0.02% INH SOLN 0.5 MG/2.5 ML VIAL INHALATION ×2 (14:46→19:59)
[2024-03-24] MEDS: QUEtiapine FUMARATE 25 MG TABLET PO (20:31)
[2024-03-24] MEDS: PANTOPRAZOLE 40 MG TABLET PO (20:31)
[2024-03-24] MEDS: MELATONIN 3 MG TABLET PO (22:00)
[2024-03-25] VITALS (28 sets, daily range): BP systolic 106–188; BP diastolic 55–76; PULSE 75–111; RESP 14–22; TEMP 36.6–36.9; O2SAT 96–100
[2024-03-25] MEDS: IPRATROPIUM BR 0.02% INH SOLN 0.5 MG/2.5 ML VIAL INHALATION ×6 (01:00→20:51)
[2024-03-25 03:35] LABS: Hematocrit 24.9 % (42.0-52.0); Hemoglobin 8.4 g/dL (14.0-18.0); Immature Platelet Fraction Pct 8.8 % (0.9-11.2); Mean Corpuscular HGB Conc 33.7 g/dl (32-36); Mean Corpuscular Hemoglobin 31.7 pg (26-34); Mean Platelet Volume 11.3 fl (7.4-10.4); Red Blood Count 2.65 M/mm3 (4.6-6.20)
[2024-03-25 03:39] LABS: Platelet Count Result 56 k/mm3 (150-375)
[2024-03-25 03:43] LABS: Alanine Aminotransferase 52 U/L (6-50); Albumin Level 2.7 g/dL (3.5-5.1); Alkaline Phosphatase 116 U/L (38-126); Anion Gap 10 mmol/L (4-12); Aspartate Amino Transferase 40 U/L (17-59); Bilirubin,Total 2.8 mg/dL (0.2-1.3); Blood Urea Nitrogen 26 mg/dL (9-20); Calcium 8.4 mg/dL (8.4-10.2); Carbon Dioxide 22 mmol/L (22-30); Chloride 98 mmol/L (98-107); Estimated CRCL calculation 73 ml/min; Estimated Glomerular Filt Rate > 60; Glucose 123 mg/dL (65-110); Magnesium 1.5 mg/dL (1.6-2.3); Potassium 2.9 mmol/L (3.4-5.0); Sodium 130 mmol/L (137-145)
[2024-03-25] MEDS: FLUTICASONE/SALMETEROL 115-21 MCG INHALER 1 PUFF 2 PUFF INHALATION ×2 (07:46→20:52)
--- NOTE | 2024-03-25 08:19 | PM.IMPN ---
Progress Note: A&P Assessment and Plan (1) Anemia: Code(s): D64.9 - Anemia, unspecified Status: Acute (2) Altered mental status: Code(s): R41.82 - Altered mental status, unspecified Status: Acute (3) Hyperammonemia: Code(s): E72.20 - Disorder of urea cycle metabolism, unspecified Status: Acute (4) Thrombocytopenia: Code(s): D69.6 - Thrombocytopenia, unspecified Status: Acute (5) Continuous dependence on cigarette smoking: Code(s): F17.210 - Nicotine dependence, cigarettes, uncomplicated Status: Acute (6) COVID: Code(s): U07.1 - COVID-19 Status: Acute (7) Cirrhosis of liver: Qualifiers: Ascites presence: with ascites Hepatic cirrhosis type: unspecified hepatic cirrhosis Qualified Code(s): K74.60 - Unspecified cirrhosis of liver; R18.8 - Other ascites Code(s): K74.60 - Unspecified cirrhosis of liver Status: Acute (8) COPD exacerbation: Code(s): J44.1 - Chronic obstructive pulmonary disease with (acute) exacerbation Status: Acute Plan This is a 68-year-old male with PMH alcohol use disorder currently still abusing not a candidate for transplantation, alcoholic cirrhosis, hepatocellular carcinoma status post SBRT completed on September 07, [address] Conklin hepatology, hepatic encephalopathy, refractory ascites requiring large volume paracentesis q.2 weeks, portal hypertension, previously positive hepatitis C antibody screen, chronic thrombocytopenia, chronic normocytic anemia, internal hemorrhoids, chronic hyponatremia, cervical myelopathy status post C2-C7 cervical spinal fusion, malnutrition and chronic debility, acute otitis media left ear with rupture of tympanic membrane in 02/2024, asthma, umbilical hernia, tobacco abuse. Review of documentation review is admission to [facility] for shortness of breath diarrhea and worsening ascites. Large volume paracentesis performed. Patient discharged on 02/24/2024 to home. He presents again to [place] ER on 03/13 with a worsening acute on chronic dry cough. He denied fevers or ill contacts. His abdomen was progressively more distended than his last paracentesis 2 weeks prior, as expected. In the ER his blood pressures were found to be intermittently low but improved after 1 dose of IV albumin. Chest x-ray demonstrated markedly decreased lung volumes with possible interstitial opacities in the lower lung zones. He had a normal white count. Patient found to have COVID PCR positive. Patient has never had a COVID vaccine. Subsequently admitted for further treatment on 03/13/2024. # electrolyte derangements, acute -on 03/25/2024 potassium is 2.9 and magnesium 1.6. Placed with 20 potassium oral and 40 IV. Magnesium 3 g rider. -recheck in the morning. # bright red blood per rectum # acute on chronic anemia # chronic thrombocytopenia # internal hemorrhoids -status: Acute on chronic, improved. -chronic component likely due to cirrhosis. He had an episode of rectal bleeding on 03/21 the hemoglobin is 7.1. Received 1 unit PRBC transfusion. Patient has been placed on the [facility] transfer list since 03/22 but they report 3-5 day wait. Since been started on Protonix IV b.i.d. and octreotide GTT. We currently do not have professional builder in house. Discontinue the octreotide GTT S patient has no history of varices or symptomatology/signs to indicate so -was likely due to internal hemorrhoids. He is receiving treatment -received Rocephin for SBP prophylaxis -in the setting of rectal bleeding and platelets in the 20s, transfuse 2 units platelets on 03/23 -on 03/23/2024 the patient has had 1 large BM which was described as pinkish by the nurse. Continue to monitor. Hemoglobin today 8.7. Does not appear to be exsanguinating. -on 03/25 the patient continues to have multiple bowel movements which are brown. -in the setting of rectal bleeding and platelets in the 20s, trans
[2024-03-25] MEDS: THIAMINE HCL 100 MG TABLET PO (08:55)
[2024-03-25] MEDS: SPIRONOLACTONE 50 MG TABLET PO (08:55)
[2024-03-25] MEDS: KCL 20 MEQ/SW 100 ML 100 ML 50 MEQ IVPB (08:55)
[2024-03-25] MEDS: MAGNESIUM SULFATE 3GM/D5W100ML 3 GM/100 ML BAG IVPB (08:55)
[2024-03-25] MEDS: MULTIVITAMINS THERAPEUTIC TAB (*BKC) 1 TABLET PO (08:55)
[2024-03-25] MEDS: guaiFENesin 12 HR 600 MG TABCR 1200 MG PO ×2 (08:55→20:26)
[2024-03-25] MEDS: rifAXIMin 550 MG TABLET PO ×2 (08:56→20:26)
[2024-03-25] MEDS: BACLOFEN 5 MG TABLET PO ×3 (08:56→17:00)
[2024-03-25] MEDS: PANTOPRAZOLE 40 MG TABLET PO (08:56)
[2024-03-25] MEDS: FUROSEMIDE 40 MG TABLET PO (08:56)
[2024-03-25] MEDS: PHENYLEPH/MINERAL OIL/PETROLAT OINTMENT 57 GM 1 APPLIC RECTAL (08:57)
[2024-03-25] MEDS: LIDOCAINE 5% PATCH 2 PATCH TOPICAL (09:02)
[2024-03-25] MEDS: LACTULOSE 20 GM/30 ML UDC 10 GM PO ×3 (09:03→16:59)
[2024-03-25] MEDS: POTASSIUM CHLORIDE 20 MEQ ER TABLET 40 MEQ PO (09:03)
[2024-03-25] MEDS: QUEtiapine FUMARATE 25 MG TABLET PO (20:26)
[2024-03-26] VITALS (15 sets, daily range): BP systolic 108–121; BP diastolic 56–73; PULSE 85–106; RESP 16–20; TEMP 36.8–37.3; O2SAT 96–100
[2024-03-26] MEDS: IPRATROPIUM BR 0.02% INH SOLN 0.5 MG/2.5 ML VIAL INHALATION ×3 (00:38→08:58)
[2024-03-26 04:57] LABS: Hematocrit 27.1 % (42.0-52.0); Hemoglobin 8.8 g/dL (14.0-18.0); Immature Platelet Fraction Pct 8.7 % (0.9-11.2); Mean Corpuscular HGB Conc 32.5 g/dl (32-36); Mean Corpuscular Hemoglobin 31.9 pg (26-34); Mean Corpuscular Volume 98.2 fl (80-100); Mean Platelet Volume 12.1 fl (7.4-10.4); Platelet Count Result 55 k/mm3 (150-375); Red Blood Count 2.76 M/mm3 (4.6-6.20); Red Cell Distribution Width 17.2 % (11.5-14.5); White Blood Count 6.1 K/mm3 (4.5-10.0)
[2024-03-26 05:10] LABS: Alanine Aminotransferase 50 U/L (6-50); Albumin Level 2.8 g/dL (3.5-5.1); Alkaline Phosphatase 150 U/L (38-126); Ammonia < 9 umol/L (9-30); Anion Gap 8 mmol/L (4-12); Aspartate Amino Transferase 41 U/L (17-59); Bilirubin,Total 2.3 mg/dL (0.2-1.3); Blood Urea Nitrogen 25 mg/dL (9-20); Calcium 8.2 mg/dL (8.4-10.2); Carbon Dioxide 20 mmol/L (22-30); Chloride 97 mmol/L (98-107); Estimated CRCL calculation 82 ml/min; Estimated Glomerular Filt Rate > 60; Glucose 109 mg/dL (65-110); Magnesium 2.1 mg/dL (1.6-2.3); Sodium 125 mmol/L (137-145)
[2024-03-26] MEDS: LIDOCAINE 5% PATCH 2 PATCH TOPICAL (08:41)
[2024-03-26] MEDS: PHENYLEPH/MINERAL OIL/PETROLAT OINTMENT 57 GM 1 APPLIC RECTAL (08:41)
[2024-03-26] MEDS: PANTOPRAZOLE 40 MG TABLET PO (08:42)
[2024-03-26] MEDS: FUROSEMIDE 40 MG TABLET PO (08:42)
[2024-03-26] MEDS: BACLOFEN 5 MG TABLET PO (08:42)
[2024-03-26] MEDS: rifAXIMin 550 MG TABLET PO (08:42)
[2024-03-26] MEDS: SPIRONOLACTONE 50 MG TABLET PO (08:42)
[2024-03-26] MEDS: guaiFENesin 12 HR 600 MG TABCR 1200 MG PO (08:42)
[2024-03-26] MEDS: THIAMINE HCL 100 MG TABLET PO (08:42)
[2024-03-26] MEDS: MULTIVITAMINS THERAPEUTIC TAB (*BKC) 1 TABLET PO (08:43)
[2024-03-26] MEDS: FLUTICASONE/SALMETEROL 115-21 MCG INHALER 1 PUFF 2 PUFF INHALATION (08:57)
--- NOTE | 2024-04-08 07:19 | PM.DS ---
DS: Admitting Diagnosis Discharge Date 03/26/24 Admitting Diagnosis Acute on chronic cough, shortness of breath DS: Discharge Diagnosis Discharge Diagnosis (1) Anemia: Code(s): D64.9 - Anemia, unspecified Status: Acute (2) Altered mental status: Code(s): R41.82 - Altered mental status, unspecified Status: Acute (3) Hyperammonemia: Code(s): E72.20 - Disorder of urea cycle metabolism, unspecified Status: Acute (4) Thrombocytopenia: Code(s): D69.6 - Thrombocytopenia, unspecified Status: Acute (5) Cirrhosis of liver: Qualifiers: Ascites presence: with ascites Hepatic cirrhosis type: unspecified hepatic cirrhosis Qualified Code(s): K74.60 - Unspecified cirrhosis of liver; R18.8 - Other ascites Code(s): K74.60 - Unspecified cirrhosis of liver Status: Acute (6) COVID: Code(s): U07.1 - COVID-19 Status: Acute (7) COPD exacerbation: Code(s): J44.1 - Chronic obstructive pulmonary disease with (acute) exacerbation Status: Acute DS: Summary Hospital Course Hospital Course: This is a 68-year-old male with PMH alcohol use disorder currently still abusing not a candidate for transplantation, alcoholic cirrhosis, hepatocellular carcinoma status post SBRT completed on September 07, [address] Conklin hepatology, hepatic encephalopathy, refractory ascites requiring large volume paracentesis q.2 weeks, portal hypertension, previously positive hepatitis C antibody screen, chronic thrombocytopenia, chronic normocytic anemia, internal hemorrhoids, chronic hyponatremia, cervical myelopathy status post C2-C7 cervical spinal fusion, malnutrition and chronic debility, acute otitis media left ear with rupture of tympanic membrane in 02/2024, asthma, umbilical hernia, tobacco abuse. Review of documentation review is admission to [facility] for shortness of breath diarrhea and worsening ascites. Large volume paracentesis performed. Patient discharged on 02/24/2024 to home. He presents again to [place] ER on 03/13 with a worsening acute on chronic dry cough. He denied fevers or ill contacts. His abdomen was progressively more distended than his last paracentesis 2 weeks prior, as expected. In the ER his blood pressures were found to be intermittently low but improved after 1 dose of IV albumin. Chest x-ray demonstrated markedly decreased lung volumes with possible interstitial opacities in the lower lung zones. He had a normal white count. Patient found to have COVID PCR positive. Patient has never had a COVID vaccine. Subsequently admitted for further treatment on 03/13/2024. On 04/08/2024 the patient's mental status has stabilized. His electrolyte derangements have improved. He is discharged to [facility] for rehab. Daughter has been updated. Advised to follow up with PCP and guest services officer, they agreed to this plan. Please see the following detailed problem list # electrolyte derangements, acute -on 03/25/2024 potassium is 2.9 and magnesium 1.6. Placed with 20 potassium oral and 40 IV. Magnesium 3 g rider. -on discharge on 03/26/2024 potassium improved to 4.0 and magnesium 2.1. # bright red blood per rectum # acute on chronic anemia # chronic thrombocytopenia # internal hemorrhoids -status: Acute on chronic, improved. -chronic component likely due to cirrhosis. He had an episode of rectal bleeding on 03/21 the hemoglobin is 7.1. Received 1 unit PRBC transfusion. Patient has been placed on the [facility] transfer list since 03/22 but they report 3-5 day wait. Since been started on Protonix IV b.i.d. and octreotide GTT. We currently do not have retail manager in training in house. Discontinue the octreotide GTT as patient has no history of varices or symptomatology/signs to indicate so -was likely due to internal hemorrhoids. -received Rocephin for SBP prophylaxis -in the setting of rectal bleeding and platelets in the 20s, tr
== END 2024-03-26 12:34 | DRG 177 ==
LOC: ANHED 22:10 → ANH2MED 03-15 06:39 → ANHIMU 03-26 07:28 → ANH2MED 03-28 09:26 → ANHIMU 03-28 09:26
PROVIDERS: Emergency Medicine; Family Medicine; Hospitalist; Internal Medicine; Nurse Practitioner Acute Care; Admitting Provider Internal Medicine; Emergency Provider Emergency Medicine; PCP Family Medicine Adolescent Medicine; Visit Provider General Practice
DX: U07.1 COVID-19 (principal); J12.82 Pneumonia due to coronavirus disease 2019; E72.20 Disorder of urea cycle metabolism, unspecified; J44.1 Chronic obstructive pulmonary disease with (acute) exacerbation; K70.31 Alcoholic cirrhosis of liver with ascites; E87.1 Hypo-osmolality and hyponatremia; E87.20 Acidosis, unspecified; N17.9 Acute kidney failure, unspecified; K76.6 Portal hypertension; K76.82 Hepatic encephalopathy; F17.210 Nicotine dependence, cigarettes, uncomplicated; D69.59 Other secondary thrombocytopenia; D63.8 Anemia in other chronic diseases classified elsewhere; D72.819 Decreased white blood cell count, unspecified; F10.90 Alcohol use, unspecified, uncomplicated; K64.8 Other hemorrhoids; D64.9 Anemia, unspecified; R68.0 Hypothermia, not associated with low environmental temperature
CPT/HCPCS: 36415; 36430; 36600; 49083; 70450; 71045; 80048; 80053; 81003; 82140; 82274; 82803; 82805; 82948; 83605; 83735; 83880; 83930; 83935; 84100; 84145; 84295; 84300; 85014; 85018; 85025; 85027; 85055; 85610; 85730; 86850; 86900; 86901; 86923; 87040; 87070; 87075; 87205; 87637; 88108; 88305; 89051; 93005; 94640; 94667; 94668; 94669; 96361; 96365; 96366; 96375; 96376; 97110; 97162; 97166; 97530; 97535; 99285; A9270; G0378; J0696; J1100; J2185; J2354; J2470; J3475; J3480; J7030; J7040; J7050; J8540; P9016; P9034; P9047